=== PATIENT | female | born 1975 | race Caucasian/White ===

== ENCOUNTER → 2016-06-14 | Outpatient (CLI) | payer BC ==
--- NOTE | 2016-06-14 10:02 | RAD ---
EXAM: Abdomen sonogram. HISTORY: Pain. TECHNIQUE: Sonographic imaging of the abdomen was performed. COMPARISON: None. FINDINGS: The liver is normal in size. No focal hepatic lesion is seen. There is cholelithiasis, including nonmobile stones within the gallbladder neck. There is no color wall thickening or pericholecystic fluid. The kidneys, pancreas, aorta and inferior vena cava are unremarkable. The spleen is upper normal in size. IMPRESSION: 1. Cholelithiasis, including nonmobile stones within the gallbladder neck. 2. Otherwise, unremarkable abdomen sonogram.
== END | disposition home or self-care (01) ==
LOC: US 08:45
PROVIDERS: ATTEND Internal Medicine
DX: K80.20 Calculus of gallbladder without cholecystitis without obstruction (principal); R11.10 Vomiting, unspecified; R10.9 Unspecified abdominal pain; R19.01 Right upper quadrant abdominal swelling, mass and lump
CPT/HCPCS: 76700

== ENCOUNTER 2017-07-14 09:03 | Emergency (ER) | payer OTHER ==
[~2017-07-14] VITALS: Ht 157.5 cm; Wt 108.9 kg
[2017-07-14] MEDS ORDERED: IPRATRPIUM/ALBUTEROL 0.5/2.5MG 3 ML NEBU. NEB ONE (10:15)
[2017-07-14] MEDS ORDERED: IV NORMAL SALINE 1,000ML 1,000 ML IV ONE (10:15)
--- NOTE | 2017-07-14 10:19 | RAD ---
CHEST PA LATERAL History: COUGH Comparison: Two-view chest May 12, 2007. Findings: The cardiomediastinal silhouette is normal. Pulmonary vasculature is normal. The lungs are clear. No pleural effusion or pneumothorax is seen. There is no acute bone abnormality. IMPRESSION: No acute cardiopulmonary process. Electronically signed by: Emiliano Deluca MD (07/14/2017 10:16 AM) [id number]
[2017-07-14 10:29] LABS: BASO % 1 % (0-3); EOS # 0.1 x10^3/uL (0.0-0.7); EOS % 2 % (0-3); HEMATOCRIT 39.9 % (36.0-47.0); HEMOGLOBIN 13.3 g/dL (12.0-15.5); LYMPH # 0.5 x10^3/uL (1.0-4.8); LYMPH % 7 % (24-48); MEAN CORPUSCULAR HEMOGLOBIN 26 pg (25-35); MEAN CORPUSCULAR HGB CONC 33 g/dL (31-37); MEAN CORPUSCULAR VOLUME 79 fL (79-100); MONO # 0.4 x10^3/uL (0.0-1.1); MONO % 5 % (0-9); NEUT % 86 % (31-73); PLATELET COUNT 203 x10^3/uL (140-400); RED BLOOD COUNT 5.07 x10^6/uL (3.50-5.40); RED CELL DISTRIBUTION WIDTH 15.3 % (11.5-14.5)
[2017-07-14 10:37] LABS: CALCIUM 8.8 mg/dL (8.5-10.1); GFR 61.4
[2017-07-14] MEDS ORDERED: ONDANSETRON ODT 4 MG TAB.RAPDIS ONE (11:01)
[2017-07-14] MEDS ORDERED: ONDANSETRON ODT 4 MG TAB.RAPDIS PO ONE (11:15)
[2017-07-14] MEDS ORDERED: KETOROLAC 30 MG/ML VIAL. IV ONE (11:30)
[2017-07-14] MEDS ORDERED: FLUT12AE IH (12:05)
[2017-07-14] MEDS ORDERED: FLUT9.9S NS (12:05)
[2017-07-14] MEDS ORDERED: ALBU8.5H8 INH (12:05)
--- NOTE | 2017-07-14 12:08 | PHYS DOC ---
Past History Past Medical History: Anemia, Hypothyroid Past Surgical History: Other Alcohol Use: None Drug Use: None Adult General Chief Complaint Chief Complaint: COUGH HPI HPI Patient is a 41 year old F who presents with cough and congestion over the past 3-4 days. She also describes nausea and vomiting that started this morning. Her vomiting seems to be associated with cough. She states that she occasionally has mild difficulty breathing particularly with cough. She also describes moderate nasal congestion associated with moderate postnasal drip and drainage. Review of Systems Review of Systems Constitutional: Chills Eyes: Denies change in visual acuity, redness, or eye pain [] HENT: Negative except history of present illness Respiratory: Denies cough or shortness of breath [] Cardiovascular: No additional information not addressed in HPI [] GI: Denies abdominal pain, bloody stools or diarrhea [] : Denies dysuria or hematuria [] Musculoskeletal: Denies back pain or joint pain [] Integument: Denies rash or skin lesions [] Neurologic: Denies headache, focal weakness or sensory changes [] Endocrine: Denies polyuria or polydipsia [] All other systems were reviewed and found to be within normal limits, except as documented in this note. Family History Family History No pertinent family medical history was reported Current Medications Current Medications Current Medications Medications (Trade) Dose Ordered Sig/Flip Start Time Stop Time Status Last Admin Dose Admin Albuterol/ Ipratropium (Duoneb) 3 ml 1X ONCE 07/14/17 10:15 07/14/17 10:16 DC 07/14/17 10:45 3 ML Ketorolac Tromethamine (Toradol) 30 mg 1X ONCE 07/14/17 11:30 07/14/17 11:31 DC 07/14/17 11:12 30 MG Ondansetron HCl (Zofran Odt) 4 mg 1X ONCE 07/14/17 11:15 07/14/17 11:19 DC 07/14/17 11:14 4 MG Sodium Chloride 1,000 ml @ 1,000 mls/hr 1X ONCE 07/14/17 10:15 07/14/17 11:14 DC 07/14/17 10:24 1,000 MLS/HR Allergies Allergies Allergies Coded Allergies Type Severity Reaction Last Updated Verified No Known Drug Allergies 07/14/17 No Physical Exam Physical Exam Constitutional: Well developed, well nourished, no acute distress, non-toxic appearance. [] HENT: Normocephalic, atraumatic, mild to moderate bilateral nasal mucosa erythema and edema with moderate drainage noted Eyes: EOMI, conjunctiva normal, no discharge. [] Neck: Normal range of motion, no tenderness, supple, no stridor. [] Cardiovascular:Heart rate regular rhythm, no murmur [] Lungs & Thorax: Bilateral breath sounds clear to auscultation [] minimal wheezing bilaterally Abdomen: Bowel sounds normal, soft, no tenderness, no masses, no pulsatile masses. [] Skin: Warm, dry, no erythema, no rash. [] Back: No tenderness, no CVA tenderness. [] Extremities: No tenderness, no cyanosis, no clubbing, ROM intact, no edema. [] Neurologic: Alert and oriented X 3, normal motor function, normal sensory function, no focal deficits noted. [] Psychologic: Affect normal, judgement normal, mood normal. [] Current Patient Data Vital Signs Vital Signs Date Time Temp Pulse Resp B/P (MAP) Pulse Ox O2 Delivery O2 Flow Rate FiO2 07/14/17 11:45 101.2 104 18 117/72 (87) 98 Room Air Lab Results Laboratory Tests Test 07/14/17 10:15 White Blood Count 7.0 x10^3/uL (4.0-11.0) Red Blood Count 5.07 x10^6/uL (3.50-5.40) Hemoglobin 13.3 g/dL (12.0-15.5) Hematocrit 39.9 % (36.0-47.0) Mean Corpuscular Volume 79 fL (79-100) Mean Corpuscular Hemoglobin 26 pg (25-35) Mean Corpuscular Hemoglobin Concent 33 g/dL (31-37) Red Cell Distribution Width 15.3 % (11.5-14.5) H Platelet Count 203 x10^3/uL (140-400) Neutrophils (%) (Auto) 86 % (31-73) H Lymphocytes (%) (Auto) 7 % (24-48) L Monocytes (%) (Auto) 5 % (0-9) Eosinophils (%) (Auto) 2 % (0-3) Basophils (%) (Auto) 1 % (0-3) Neutrophils # (Auto) 6.0 x10^3uL (1.8-7.7) Lymphocytes # (Auto) 0.5 x10^3/uL (1.0-4.8) L Monocytes # (Auto) 0.4 x10^3/uL (0.0-1.1) Eosinophils # (Auto) 0.1 x10^3/uL (0.0-0.7) Basophils # (Auto) 0.0 x10^3/uL (0.0-0.2) Sodium Level 134 mmol/L (136-145) L Potassium Level 4.0 mmol/L (3.5-5.1) Chloride Level 103 mmol/L (98-107) Carbon Dioxide Level 25 mmol/L (21-32) Anion Gap 6 (6-14) Blood Urea Nitrogen 11 mg/dL (7-20) Creatinine 1.0 mg/dL (0.6-1.0) Estimated GFR (Cockcroft-Gault) 61.4 Glucose Level 112 mg/dL (70-99) H Calcium Level 8.8 mg/dL (8.5-10.1) EKG EKG [] Radiology/Procedures Radiology/Procedures Chest xray Impressions: No acute cardio-pulmonary process Course & Med Decision Making Course & Med Decision Making Pertinent Labs and Imaging studies reviewed. (See chart for details) [] Dragon Disclaimer Dragon Disclaimer This electronic medical record was generated, in whole or in part, using a voice recognition dictation system. Departure Departure: Impression: Primary Impression: Viral upper respiratory infection Additional Impression: Bronchitis Disposition: 01 HOME, SELF-CARE Condition: STABLE Referrals: NAME,JOSEPH MICHEL (PCP) Patient Instructions: Acute Bronchitis, Upper Respiratory Infection, Adult Additional Instructions: Tanya was seen in the emergency department for cough, congestion and nausea. No emergency medical condition was found on history or physical exam. She did have normal labs and imaging. Her symptoms are most consistent with a viral upper respiratory infection, bronchitis and associated gastritis (or stomach irritation). She was encouraged use nasal saline rinses regularly. She was given a prescription for nose spray and inhalers. She was encouraged to return to the emergency room if she develops new or worsening symptoms. She was also encouraged follow-up with her primary care doctor in the next 3-5 days for further management. Scripts Fluticasone Propionate (FLOVENT 110MCG HFA) 12 Gm Aer.w.adap 2 PUFF IH BID for 7 Days, #1 INHALER 0 Refills Prov: YSABEL LOMELI MD 07/14/17 Fluticasone Propionate (Flonase Allergy Relief) 9.9 Ml Green.susp 1 SPRAYS NS BID for 7 Days, BOTTLE Prov: YSABEL LOMELI MD 07/14/17 Albuterol Sulfate (PROAIR HFA INHALER) 8.5 Gm Hfa.aer.ad 1 PUFF INH PRN Q6HRS Y for SHORTNESS OF BREATH for 7 Days, INHALER 0 Refills Prov: YSABEL LOMELI MD 07/14/17 Problem Qualifiers YSABEL LOMELI MD Jul 14, 2017 12:08
[2017-07-14 13:35] VITALS: BP 126/82
[2017-07-19] MEDS ORDERED: IPRA3AMP NEB (10:31)
[2017-07-19] MEDS ORDERED: PRED-220 PO (10:31)
[2017-07-19] MEDS ORDERED: LEVO500T59 PO (10:31)
== END 2017-07-14 13:35 | disposition home or self-care (01) ==
LOC: ER 09:03
DX: J06.9 Acute upper respiratory infection, unspecified (principal); J40 Bronchitis, not specified as acute or chronic; B97.89 Other viral agents as the cause of diseases classified elsewhere; E03.9 Hypothyroidism, unspecified; Z86.2 Personal history of diseases of the blood and blood-forming organs and certain disorders involving the immune mechanism
CPT/HCPCS: 36415; 71046; 80048; 85025; 94640; 96361; 96374; 99285; J1885; J7620; Q0162; J7030

== ENCOUNTER 2017-07-16 16:42 | Inpatient (IN) | payer OTHER ==
[~2017-07-16] VITALS: Ht 160 cm; Wt 108.6 kg
[~2017-07-16 16:42] MED LIST: ALBU8.5H8 INH; FLUT12AE IH; FLUT9.9S NS
[2017-07-16 17:54] VITALS: BP 127/71
[2017-07-16] MEDS: IPRATRPIUM/ALBUTEROL 0.5/2.5MG 3 ML NEBU. NEB SCH ×2 (18:11→20:57)
[2017-07-16 18:12] LABS: BASO % 1 % (0-3); EOS # 0.1 x10^3/uL (0.0-0.7); EOS % 2 % (0-3); HEMATOCRIT 36.3 % (36.0-47.0); HEMOGLOBIN 12.4 g/dL (12.0-15.5); LYMPH # 0.7 x10^3/uL (1.0-4.8); LYMPH % 18 % (24-48); MEAN CORPUSCULAR HEMOGLOBIN 27 pg (25-35); MEAN CORPUSCULAR HGB CONC 34 g/dL (31-37); MEAN CORPUSCULAR VOLUME 78 fL (79-100); MONO # 0.3 x10^3/uL (0.0-1.1); MONO % 8 % (0-9); NEUT # 2.9 x10^3uL (1.8-7.7); NEUT % 71 % (31-73); PLATELET COUNT 204 x10^3/uL (140-400); RED BLOOD COUNT 4.64 x10^6/uL (3.50-5.40); RED CELL DISTRIBUTION WIDTH 15.3 % (11.5-14.5); WHITE BLOOD COUNT 4.1 x10^3/uL (4.0-11.0)
[2017-07-16] MEDS ORDERED: PROM118S2 PO (18:13)
[2017-07-16] MEDS ORDERED: ONDA4TAB10 PO (18:13)
[2017-07-16] MEDS ORDERED: AZIT250T6 PO ×2 (18:13)
[2017-07-16] MEDS ORDERED: LEVO125T5 PO (18:13)
[2017-07-16 18:18] LABS: CALCIUM 8.7 mg/dL (8.5-10.1); CREATININE 0.9 mg/dL (0.6-1.0); GFR 69.3; POTASSIUM 3.7 mmol/L (3.5-5.1)
[2017-07-16] MEDS: methylPREDNISolone SOD SUCC PF 40 MG/ML VIAL. IV SCH ×2 (18:22→23:15)
[2017-07-16 19:23] VITALS: BP 120/62
[2017-07-16] MEDS ORDERED: traMADol 50 MG TABLET PO PRN ×2 (19:30→19:45)
[2017-07-16] MEDS ORDERED: ACETAMINOPHEN 325 MG TABLET PO PRN (19:30)
[2017-07-16] MEDS ORDERED: ONDANSETRON ODT 4 MG TAB.RAPDIS PO PRN (19:30)
[2017-07-16] MEDS ORDERED: ALBUTEROL SULFATE 2.5 MG/3 ML NEBU. NEB PRN (19:45)
[2017-07-16] MEDS: cefTRIAXone IV Push 1 GM VIAL. IVP SCH (20:02)
[2017-07-16] MEDS: DOXYCYCLINE HYCLATE 100 MG TABLET PO SCH (20:02)
[2017-07-16] MEDS: PROMETH/CODEINE 6.25/10MG 5 ML SYRUP. PO PRN (20:02)
[2017-07-16] MEDS: BENZONATATE 100 MG CAPSULE. PO SCH (20:03)
[2017-07-16] MEDS: FLUTICASONE 50MCG/NASAL SPRAY 16GM BOTTLE. NS SCH (20:03)
[2017-07-16 22:57] VITALS: BP 125/55
[2017-07-16] MEDS: guaiFENesin DM 200MG/20MG 10 ML SYRUP PO PRN (23:16)
[2017-07-17] MEDS: IPRATRPIUM/ALBUTEROL 0.5/2.5MG 3 ML NEBU. NEB SCH ×4 (05:17→20:45)
[2017-07-17 05:40] VITALS: BP 104/61
[2017-07-17] MEDS: methylPREDNISolone SOD SUCC PF 40 MG/ML VIAL. IV SCH ×3 (05:46→22:32)
[2017-07-17] MEDS: LEVOTHYROXINE 125 MCG TABLET PO SCH (06:22)
[2017-07-17] MEDS: guaiFENesin DM 200MG/20MG 10 ML SYRUP PO PRN (06:25)
[2017-07-17] MEDS: BENZONATATE 100 MG CAPSULE. PO SCH ×3 (08:05→20:48)
[2017-07-17] MEDS: DOXYCYCLINE HYCLATE 100 MG TABLET PO SCH ×2 (08:05→20:48)
[2017-07-17] MEDS: FLUTICASONE 50MCG/NASAL SPRAY 16GM BOTTLE. NS SCH ×2 (08:16→22:48)
--- NOTE | 2017-07-17 11:11 | HP ---
ADMIT DATE: 07/16/2017 HISTORY OF PRESENT ILLNESS: The patient is a 41-year-old female who came in with increased shortness of breath. She has been ill for the past week, running temperatures, has been to 2 Emergency Rooms, given breathing treatments; however, she got progressively worse with increased shortness of breath, mild dyspnea on minimal exertion. The patient is moving 10 steps or more. She had difficulty talking and she had to use at times accessory muscles to breathe. She also had coughing spasms that inhibit her ability to get a good breath. In any case, the patient was admitted for acute exacerbation of her asthma, acute respiratory distress. PAST MEDICAL HISTORY: Asthma, cholecystectomy in 05/2017, abdominal surgery, appendectomy, x 2, hypothyroidism and anemia. FAMILY HISTORY: Mother with myocardial infarction, hypertension, asthma, and coronary artery disease. ALLERGIES: No known drug allergies. The patient is otherwise basically stable there. HOME MEDICATIONS: Include albuterol inhaler, fluticasone propionate, Phenergan with Codeine cough syrup, albuterol inhalers and Z-VERITO. SOCIAL HISTORY: The patient denies smoking, alcohol or drug use. REVIEW OF SYSTEMS: Positive for cough, bronchospasm, asthma type, increased shortness of breath. She also has significant nausea, unable to keep medications down, had to give her doses of Zofran to get her under control there as well. PHYSICAL EXAMINATION: GENERAL: This is an ill-appearing white female, difficulty talking. VITAL SIGNS: Blood pressure 127/70, respiratory 20, pulse 113, temperature 101.0. The patient's oxygen saturation was increased, . HEENT: The patient's head was atraumatic, normocephalic. Eyes: PERRLA without jaundice. Mouth and throat were normal. NECK: Supple. LUNGS: Diminished throughout, poor movement of air, some expiratory and inspiratory wheezes noted. CARDIOVASCULAR: Regular sinus rhythm, S1, S2, without murmur, rub, thrill, or extra heart sound. ABDOMEN: Soft, protuberant, nontender. No rebounding or guarding. Mild tenderness in the right upper quadrant where she has had her surgery. EXTREMITIES: No clubbing, cyanosis, nor edema. NEUROLOGIC: The patient was alert and oriented x 3, in some distress. IMPRESSION: Acute respiratory distress, acute exacerbation of asthma, SIRS, acute bronchitis, elevated D-dimer, nausea, dehydration. PLAN: IV fluids, IV antibiotics, aggressive pulmonary toilet and some Solu-Medrol, aggressive pulmonary toilet, monitor carefully. YSABEL POWERS MD DR: THAO/karin JOB#: [id number] / [id number]
[2017-07-17] MEDS ORDERED: IOHEXOL 300 MG/ML 75 ML VIAL. IV ONE (11:15)
[2017-07-17 11:18] VITALS: BP 124/76
--- NOTE | 2017-07-17 14:26 | RAD ---
CTA chest with contrast 07/17/2017 CLINICAL INDICATION: Upper respiratory infection, shortness of breath. Elevated d-dimer. COMPARISON: Two-view chest 07/14/2017 Technique: Multiple CTA images of the chest were obtained following the intravenous administration of 75 mL Omnipaque 300. MIPS were obtained of the chest. *One or more of the following individualized dose reduction techniques were utilized for this examination: 1. Automated exposure control. 2. Adjustment of the mA and/or kV according to patient size. 3. Use of iterative reconstruction technique. FINDINGS: Examination of the subsegmental pulmonary arteries is limited due to respiratory motion. No main or central major segmental pulmonary arterial filling defect Heart size is normal without significant pericardial effusion. The thoracic aorta is normal caliber. No axillary, mediastinal or hilar lymphadenopathy. There are mildly prominent left hilar lymph nodes, largest measuring 0.9 cm short axis series 3/image 41. The central airways are patent. There are left lower lobe tree-in-bud, groundglass and nodular opacities. There is a tiny groundglass opacity in the central left upper lobe. No pleural effusion or pneumothorax. There are no destructive osseous lesions. Limited images of the upper abdomen: Subcentimeter left hepatic cysts. IMPRESSION: 1. Left lower lobe bronchopneumonia. 2. Mildly prominent left hilar lymph nodes, likely reactive. 3. Suboptimal evaluation of the subsegmental pulmonary arteries due to respiratory motion. No main or central major segmental pulmonary arterial filling defect to suggest pulmonary embolism. Electronically signed by: Stanton Calero MD (07/17/2017 2:22 PM) [id number]
[2017-07-17] MEDS: PROMETH/CODEINE 6.25/10MG 5 ML SYRUP. PO PRN ×2 (14:29→22:33)
[2017-07-17 15:03] LABS: BILIRUBIN,URINE NEG (NEG); CLARITY,URINE CLEAR; COLOR,URINE YELLOW; GLUCOSE,URINE NEG (NEG); NITRITE,URINE NEG (NEG); RBC,URINE 20-40 /HPF (0-2); UROBILINOGEN,URINE 0.2 mg/dL (0.2 mg/dL)
[2017-07-17 15:04] LABS: BACTERIA,URINE 0 /HPF (0-FEW); SQUAMOUS EPITHELIAL CELL,UR MOD /LPF; WBC,URINE OCC /HPF (0-4)
[2017-07-17 15:59] VITALS: BP 110/64
[2017-07-17 19:19] VITALS: BP 119/71
[2017-07-17] MEDS: BENZOCAINE/MENTHOL LOZNGE 18'S BOX. PO PRN ×2 (20:24→23:43)
[2017-07-17] MEDS: cefTRIAXone IV Push 1 GM VIAL. IVP SCH (20:27)
[2017-07-17] MEDS: LACTOBACILLUS RHAMNOSUS GG 1 CAPSULE. PO SCH (20:48)
[2017-07-17 22:30] VITALS: BP 120/73
[2017-07-18] MEDS: IPRATRPIUM/ALBUTEROL 0.5/2.5MG 3 ML NEBU. NEB SCH ×4 (04:30→22:06)
[2017-07-18] MEDS: PROMETH/CODEINE 6.25/10MG 5 ML SYRUP. PO PRN ×2 (04:46→07:52)
[2017-07-18] MEDS: methylPREDNISolone SOD SUCC PF 40 MG/ML VIAL. IV SCH ×3 (05:56→22:06)
[2017-07-18 06:12] VITALS: BP 112/54
[2017-07-18] MEDS: BENZONATATE 100 MG CAPSULE. PO SCH ×3 (07:52→19:58)
[2017-07-18] MEDS: DOXYCYCLINE HYCLATE 100 MG TABLET PO SCH ×2 (07:53→19:58)
[2017-07-18] MEDS: FLUTICASONE 50MCG/NASAL SPRAY 16GM BOTTLE. NS SCH ×2 (07:53→19:55)
[2017-07-18] MEDS: LEVOTHYROXINE 125 MCG TABLET PO SCH (07:53)
[2017-07-18] MEDS: LACTOBACILLUS RHAMNOSUS GG 1 CAPSULE. PO SCH ×2 (07:53→19:58)
[2017-07-18] MEDS: guaiFENesin DM 200MG/20MG 10 ML SYRUP PO PRN ×2 (08:08→19:56)
[2017-07-18 09:56] LABS: ALBUMIN 3.4 g/dL (3.4-5.0); ALBUMIN/GLOBULIN RATIO 0.8 (1.0-1.7); CALCIUM 8.9 mg/dL (8.5-10.1); CREATININE 0.9 mg/dL (0.6-1.0); GFR 69.3; POTASSIUM 4.3 mmol/L (3.5-5.1); TOTAL BILIRUBIN 0.5 mg/dL (0.2-1.0); TOTAL PROTEIN 7.7 g/dL (6.4-8.2)
[2017-07-18 10:00] LABS: BASO % 0 % (0-3); EOS % 0 % (0-3); HEMOGLOBIN 12.9 g/dL (12.0-15.5); LYMPH % 11 % (24-48); MEAN CORPUSCULAR HEMOGLOBIN 26 pg (25-35); MEAN CORPUSCULAR HGB CONC 33 g/dL (31-37); MEAN CORPUSCULAR VOLUME 79 fL (79-100); MONO # 0.4 x10^3/uL (0.0-1.1); MONO % 4 % (0-9); NEUT # 7.4 x10^3uL (1.8-7.7); NEUT % 84 % (31-73); PLATELET COUNT 274 x10^3/uL (140-400); RED BLOOD COUNT 4.93 x10^6/uL (3.50-5.40); RED CELL DISTRIBUTION WIDTH 15.4 % (11.5-14.5); WHITE BLOOD COUNT 8.8 x10^3/uL (4.0-11.0)
[2017-07-18 11:35] VITALS: BP 121/72
[2017-07-18 15:00] LABS: FREE T4 0.87 ng/dL (0.76-1.46); THYROID STIM HORMONE (TSH) 2.397 uIU/mL (0.358-3.740)
[2017-07-18 15:17] VITALS: BP 113/71
[2017-07-18 19:31] VITALS: BP 121/75
[2017-07-18] MEDS: BENZOCAINE/MENTHOL LOZNGE 18'S BOX. PO PRN (19:55)
[2017-07-18] MEDS: cefTRIAXone IV Push 1 GM VIAL. IVP SCH (20:41)
[2017-07-18 22:05] VITALS: BP 134/91
--- NOTE | 2017-07-19 05:22 | PN ---
DATE: 07/18/2017 SUBJECTIVE: The patient is a 41-year-old female who is in with a bronchial pneumonia. She is resting fairly comfortably, breathing a little bit better, but still fairly ill appearing, clinically. OBJECTIVE: VITAL SIGNS: Blood pressure 120/70, respiration 18, pulse 95, afebrile. GENERAL: The patient is alert and oriented. LUNGS: Diminished, primarily in the right upper lobe. CARDIOVASCULAR: Regular sinus rhythm, S1, S2. ABDOMEN: Soft, nontender. EXTREMITIES: No clubbing, cyanosis or edema. NEUROLOGIC: Intact. IMPRESSION: Peribronchial pneumonia. PLAN: Continue on IV antibiotic therapy. YSABEL POWERS MD DR: THAO/karin JOB#: [id number] / [id number]
[2017-07-19] MEDS: IPRATRPIUM/ALBUTEROL 0.5/2.5MG 3 ML NEBU. NEB SCH ×2 (05:33→10:35)
[2017-07-19 05:44] VITALS: BP 125/79
[2017-07-19] MEDS ORDERED: LEVOTHYROXINE 125 MCG TABLET PO SCH (06:00)
[2017-07-19] MEDS: methylPREDNISolone SOD SUCC PF 40 MG/ML VIAL. IV SCH (06:49)
[2017-07-19] MEDS: DOXYCYCLINE HYCLATE 100 MG TABLET PO SCH (08:58)
[2017-07-19] MEDS: guaiFENesin DM 200MG/20MG 10 ML SYRUP PO PRN (08:58)
[2017-07-19] MEDS: LACTOBACILLUS RHAMNOSUS GG 1 CAPSULE. PO SCH (08:58)
[2017-07-19] MEDS: FLUTICASONE 50MCG/NASAL SPRAY 16GM BOTTLE. NS SCH (08:58)
[2017-07-19] MEDS: BENZOCAINE/MENTHOL LOZNGE 18'S BOX. PO PRN (08:58)
[2017-07-19] MEDS: BENZONATATE 100 MG CAPSULE. PO SCH (08:58)
[2017-07-19] MEDS ORDERED: IPRA3AMP NEB (10:31)
[2017-07-19] MEDS ORDERED: PRED-220 PO (10:31)
[2017-07-19] MEDS ORDERED: LEVO500T59 PO (10:31)
[2017-07-19 10:43] VITALS: BP 103/67
--- NOTE | 2017-07-19 11:00 | DS ---
DATE OF DISCHARGE: 07/19/2017 HOSPITAL COURSE: The patient is a 41-year-old female who has been seen in outpatient Emergency Rooms, got increasingly worse, became increasingly fatigued and shortness of breath. As a result of this, her shortness of breath increased, could not move 10 steps. She was admitted to the hospital. CTA demonstrated a left lower lobe bronchial pneumonia and exacerbation of her breathing problems. The patient was placed on IV antibiotic therapy, aggressive pulmonary toilet, made good progress overall and she was then discharged. The patient technically would be put in the realm of sepsis. She did have an elevated pulse rate, elevated temperature and her overall breathing was very labored at times. In any case, the patient made good progress, discharged home. See EMRAD. IMPRESSION: Bronchial pneumonia, left lower lobe, organism unknown; acute respiratory distress, morbid obesity, hypothyroidism, hematuria. The patient will be discharged home, followed up as an outpatient in 7-10 days or sooner as needed. Instructions given. The patient also uses a nebulizer at home for now. YSABEL POWERS MD DR: THAO/karin JOB#: [id number] / [id number]
== END 2017-07-19 11:15 | disposition home or self-care (01) | DRG 194 ==
LOC: 1 SOUTH 17:17
PROVIDERS: ADMIT Family Medicine; ATTEND Family Medicine
DX: J18.0 Bronchopneumonia, unspecified organism (principal); R65.10 Systemic inflammatory response syndrome (SIRS) of non-infectious origin without acute organ dysfunction; E66.01 Morbid (severe) obesity due to excess calories; J45.901 Unspecified asthma with (acute) exacerbation; Z68.41 Body mass index [BMI] 40.0-44.9, adult; J20.9 Acute bronchitis, unspecified; E03.9 Hypothyroidism, unspecified; E86.0 Dehydration; R79.1 Abnormal coagulation profile; Z82.49 Family history of ischemic heart disease and other diseases of the circulatory system; Z82.5 Family history of asthma and other chronic lower respiratory diseases; Z90.49 Acquired absence of other specified parts of digestive tract
CPT/HCPCS: 36415; 71275; 80048; 80053; 81001; 84439; 84443; 84481; 85025; 85379; 87040; 94640; J0696; J1956; J2920; J7613; J7620; Q9967

== ENCOUNTER 2017-09-09 21:08 | Emergency (ER) | payer OTHER ==
[~2017-09-09] VITALS: Ht 157.5 cm; Wt 110.7 kg
[~2017-09-09 21:08] MED LIST changes: +AZIT250T6 PO; +IPRA3AMP NEB; +LEVO125T5 PO; +LEVO500T59 PO; +ONDA4TAB10 PO; +PRED-220 PO; +PROM118S2 PO
[2017-09-09] MEDS ORDERED: ALBUTEROL SULFATE 8GM INHALER. ONE (21:26)
[2017-09-09] MEDS ORDERED: predniSONE 10 MG TABLET ONE (21:26)
--- NOTE | 2017-09-09 21:41 | ED.ADGEN ---
Past History Past Medical History: Anemia, Hypothyroid Past Surgical History: Other Alcohol Use: None Drug Use: None Adult General Chief Complaint Chief Complaint ".. I am having an allergic reaction....".. I think it was the Pencillin... I stopped taking a couple days.. ago.. but I still got the rash..I was taking it for my bad teeth..." HPI HPI Patient is a 41 year old female who presents with extensive dental caries and planned dental surgery. Pt. has been taking pencillin for possible denat abscess of teeth 27, 26, 25. area. Pt. has hive like rash after starting the penicillin. Pt. denies any changes in foods hygiene products or soaps. Only new change in life has been starting amoxicillin. No recent travel. No specific ill contacts. Patient normally follows Dr. 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 Review of Systems Review of Systems Constitutional: Denies fever or chills [] Eyes: Denies change in visual acuity, redness, or eye pain [] HENT: Denies nasal congestion or sore throat []Dental pain Respiratory: Denies cough or shortness of breath [] Cardiovascular: No additional information not addressed in HPI [] GI: Denies abdominal pain, nausea, vomiting, bloody stools or diarrhea [] : Denies dysuria or hematuria [] Musculoskeletal: Denies back pain or joint pain [] Integument: Complaints of hives. ] Neurologic: Denies headache, focal weakness or sensory changes [] Endocrine: Denies polyuria or polydipsia [] All other systems were reviewed and found to be within normal limits, except as documented in this note. Family History Family History Non-contributory Current Medications Current Medications Current Medications Medications (Trade) Dose Ordered Sig/Flip Start Time Stop Time Status Last Admin Dose Admin Albuterol Sulfate (Ventolin Hfa) 60 puff STK-MED ONCE 09/09/17 21:26 09/09/17 21:27 DC Diphenhydramine HCl (Benadryl) 50 mg 1X ONCE 09/09/17 22:00 09/09/17 22:01 DC 09/09/17 22:29 50 MG Famotidine (Pepcid) 20 mg 1X ONCE 09/09/17 22:00 09/09/17 22:01 DC 6/23/18 21:31 20 MG Prednisone (Prednisone) 10 mg STK-MED ONCE 09/09/17 21:26 09/09/17 21:27 DC Allergies Allergies Allergies Coded Allergies Type Severity Reaction Last Updated Verified No Known Drug Allergies 07/14/17 No Physical Exam Physical Exam Constitutional: Moderate acute distress, non-toxic appearance. [] HENT: Normocephalic, atraumatic, bilateral external ears normal, oropharynx moist, no oral exudates, nose normal. [Multiple dental caries Eyes: PERRLA, EOMI, conjunctiva normal, no discharge. [] Neck: Normal range of motion, no tenderness, supple, no stridor. [] Cardiovascular:Heart rate regular rhythm, no murmur [] Lungs & Thorax: Bilateral breath sounds clear to auscultation [] Abdomen: Bowel sounds normal, soft, no tenderness, no masses, no pulsatile masses. [] Obese. Skin: Warm, dry, Hives Back: No tenderness, no CVA tenderness. [] Extremities: No tenderness, no cyanosis, no clubbing, ROM intact, no edema. [] Neurologic: Alert and oriented X 3, normal motor function, normal sensory function, no focal deficits noted. [] Psychologic: Affect anxious, judgement normal, mood normal. [] Current Patient Data Vital Signs Vital Signs Date Time Temp Pulse Resp B/P (MAP) Pulse Ox O2 Delivery O2 Flow Rate FiO2 09/09/17 22:30 97.7 80 20 128/88 (101) 97 Room Air EKG EKG [] Radiology/Procedures Radiology/Procedures [] Course & Med Decision Making Course & Med Decision Making Pertinent Labs and Imaging studies reviewed. (See chart for details) Take Prednisone 50 mg a day x 5 days. Take Benadryl 50 mg up to 4 x day for itching. Zantac 150 twice a day. Use MDI two puffs four times aday. Keep follow up with primary and the dentist. Return if any concerns. Expect some delay for improvement- delay drug reaction. Take Clindamycin 300 three times a day for antibiotic predental surgery. [] Final Impression Final Impression 1. Allergic Reaction- Delayed drug reaction 2. Hives[] Dragon Disclaimer Dragon Disclaimer This electronic medical record was generated, in whole or in part, using a voice recognition dictation system. TOI THOMAS MD Sep 09, 2017 21:41
[2017-09-09] MEDS ORDERED: [UNRECOGNIZED DRUG - REMARK] (21:50)
[2017-09-09] MEDS ORDERED: PENI500T PO (21:51)
[2017-09-09] MEDS ORDERED: predniSONE 20 MG TABLET PO ONE (22:00)
[2017-09-09] MEDS ORDERED: ALBUTEROL SULFATE 8GM INHALER. INH ONE (22:00)
[2017-09-09] MEDS ORDERED: FAMOTIDINE 20 MG TABLET PO ONE (22:00)
[2017-09-09] MEDS ORDERED: diphenhydrAMINE HCL 25 MG CAPSULE PO ONE (22:00)
[2017-09-09] MEDS ORDERED: CLIN300C3 PO (22:11)
[2017-09-09] MEDS ORDERED: RANI150T21 PO (22:11)
[2017-09-09] MEDS ORDERED: PRED50TA PO (22:11)
[2017-09-09 22:30] VITALS: BP 128/88
== END 2017-09-09 22:35 | disposition home or self-care (01) ==
LOC: ER 21:08
DX: L50.9 Urticaria, unspecified (principal); T50.995A Adverse effect of other drugs, medicaments and biological substances, initial encounter; Z86.2 Personal history of diseases of the blood and blood-forming organs and certain disorders involving the immune mechanism; E03.9 Hypothyroidism, unspecified; Y92.89 Other specified places as the place of occurrence of the external cause
CPT/HCPCS: 94640; 99284; J7512; Q0163

== ENCOUNTER 2017-10-01 11:17 | Emergency (ER) | payer OTHER ==
[~2017-10-01] VITALS: Ht 154.9 cm; Wt 110.7 kg
[~2017-10-01 11:17] MED LIST changes: +CLIN300C3 PO; -IPRA3AMP NEB; +IPRA3AMP29 NEB; +PENI500T PO; +PRED50TA PO; -PROM118S2 PO; +PROM118S5 PO; +RANI150T21 PO; +[UNRECOGNIZED DRUG - REMARK]
[2017-10-01 11:55] LABS: BASO # 0.1 x10^3/uL (0.0-0.2); BASO % 1 % (0-3); EOS # 0.3 x10^3/uL (0.0-0.7); EOS % 4 % (0-3); HEMATOCRIT 39.6 % (36.0-47.0); HEMOGLOBIN 13.1 g/dL (12.0-15.5); LYMPH # 1.9 x10^3/uL (1.0-4.8); LYMPH % 26 % (24-48); MEAN CORPUSCULAR HEMOGLOBIN 26 pg (25-35); MEAN CORPUSCULAR HGB CONC 33 g/dL (31-37); MEAN CORPUSCULAR VOLUME 77 fL (79-100); MONO # 0.6 x10^3/uL (0.0-1.1); MONO % 8 % (0-9); NEUT # 4.3 x10^3uL (1.8-7.7); NEUT % 61 % (31-73); PLATELET COUNT 307 x10^3/uL (140-400); RED BLOOD COUNT 5.12 x10^6/uL (3.50-5.40); RED CELL DISTRIBUTION WIDTH 16.2 % (11.5-14.5); WHITE BLOOD COUNT 7.1 x10^3/uL (4.0-11.0)
[2017-10-01] MEDS ORDERED: IV NORMAL SALINE 1,000ML 1,000 ML IV SCH (12:00)
[2017-10-01] MEDS ORDERED: KETOROLAC 30 MG/ML VIAL. IV ONE (12:00)
[2017-10-01] MEDS ORDERED: ONDANSETRON PF 4 MG/2 ML VIAL. IV ONE (12:00)
[2017-10-01 12:05] LABS: ALBUMIN 3.8 g/dL (3.4-5.0); ALBUMIN/GLOBULIN RATIO 1.1 (1.0-1.7); CALCIUM 9.3 mg/dL (8.5-10.1); CREATININE 0.9 mg/dL (0.6-1.0); GFR 69.3; POTASSIUM 4.2 mmol/L (3.5-5.1); TOTAL BILIRUBIN 0.8 mg/dL (0.2-1.0); TOTAL PROTEIN 7.4 g/dL (6.4-8.2)
--- NOTE | 2017-10-01 12:46 | RAD ---
CT of the abdomen and pelvis without contrast, 10/01/2017: History: Left-sided abdominal, back and pelvic pain Noncontrast scans were obtained utilizing the renal stone protocol. No intrarenal calculi are identified. The renal collecting systems and ureters are not dilated. No ureteral calculus is seen. The partially filled urinary bladder is unremarkable. The gallbladder is surgically absent. A 1 cm low-density lesion in the anterior aspect of the left lobe of the liver is most likely a cyst. The liver is otherwise unremarkable. The pancreas is unremarkable. The spleen is at the upper limits of normal in size measuring 13 cm in craniocaudad extent. No adrenal abnormality is detected. No retroperitoneal or iliac adenopathy is evident. The uterus is deviated to the right of midline. The left ovary is mildly enlarged measuring approximately 4 x 3 x 5 cm. There is is a 1.4 cm exophytic cyst arising from the left ovary. The bowel loops are not dilated. The appendix is surgically absent. There are several small pericecal lymph nodes without definite pathologic enlargement. No free fluid or free air is evident in the abdomen or pelvis. IMPRESSION: 1. No urinary tract calculi are identified. 2. Mild nonspecific left ovary enlargement. PQRS Compliance Statement: One or more of the following individualized dose reduction techniques were utilized for this examination: 1. Automated exposure control 2. Adjustment of the mA and/or kV according to patient size 3. Use of iterative reconstruction technique
[2017-10-01 13:04] LABS: BACTERIA,URINE FEW /HPF (0-FEW); BILIRUBIN,URINE NEG (NEG); CLARITY,URINE CLEAR; COLOR,URINE YELLOW; GLUCOSE,URINE NEG (NEG); NITRITE,URINE NEG (NEG); RBC,URINE 0 /HPF (0-2); SQUAMOUS EPITHELIAL CELL,UR OCC /LPF; UROBILINOGEN,URINE 0.2 mg/dL (0.2 mg/dL)
[2017-10-01] MEDS ORDERED: Percogesic PO (13:30)
--- NOTE | 2017-10-01 13:30 | PHYS DOC ---
Past History Past Medical History: Anemia, Bronchitis, Gallstones, Hypothyroid, Other Past Surgical History: Appendectomy, Cholecystectomy, Tubal ligation Smoking: Non-smoker Alcohol Use: None Drug Use: None Adult General Chief Complaint Chief Complaint: ABDOMINAL PAIN [facility] 5-year-old female patient complaining of sudden onset of left lower quadrant abdominal pain since 7:30 this morning as a constant pain with radiation to her back that gradually getting worse. Patient rated her pain 10 over 10 and complaining of nausea without vomiting, fever and chills, urinary symptom, history of the same pain. Patient states she is taking antibiotic for tooth infection for the last 4 days and had intermittent episodes of diarrhea. Patient states she took and knee without improvement of her pain. Review of Systems Review of Systems Constitutional: Denies fever or chills [] Eyes: Denies change in visual acuity, redness, or eye pain [] HENT: Denies nasal congestion or sore throat [] Respiratory: Denies cough or shortness of breath [] Cardiovascular: No additional information not addressed in HPI [] GI: Reports abdominal pain, nausea, denies vomiting, bloody stools or diarrhea [ ] : Denies dysuria or hematuria [] Musculoskeletal: Denies back pain or joint pain [] Integument: Denies rash or skin lesions [] Neurologic: Denies headache, focal weakness or sensory changes [] Endocrine: Denies polyuria or polydipsia [] All other systems were reviewed and found to be within normal limits, except as documented in this note. Current Medications Current Medications Current Medications Medications (Trade) Dose Ordered Sig/Flip Start Time Stop Time Status Last Admin Dose Admin Ketorolac Tromethamine (Toradol) 30 mg 1X ONCE 10/01/17 12:00 10/01/17 12:01 DC 10/01/17 11:57 30 MG Ondansetron HCl (Zofran) 4 mg 1X ONCE 10/01/17 12:00 10/01/17 12:01 DC 10/01/17 11:56 4 MG Sodium Chloride 1,000 ml @ 1,000 mls/hr Q1H 10/01/17 12:00 10/01/17 12:59 10/01/17 11:56 1,000 MLS/HR Allergies Allergies Allergies Coded Allergies Type Severity Reaction Last Updated Verified No Known Drug Allergies 07/14/17 No Physical Exam Physical Exam Constitutional: Well nourished, mild distress, very anxious, non-toxic appearance. [] HENT: Normocephalic, atraumatic, oropharynx moist, no oral exudates, nose normal. [] Eyes: PERRLA, EOMI, conjunctiva normal, no discharge. [] Neck: Normal range of motion, no tenderness, supple, no stridor. [] Cardiovascular:Heart rate regular rhythm, no murmur [] Lungs & Thorax: Bilateral breath sounds clear to auscultation [] Abdomen: Bowel sounds normal, soft, left lower quadrant guarding, no tenderness , no masses, no pulsatile masses. [] Skin: Warm, dry, no erythema, no rash. [] Back: No tenderness, no CVA tenderness. [] Extremities: No tenderness, no cyanosis, no clubbing, ROM intact, no edema. [] Neurologic: Alert and oriented X 3, normal motor function, normal sensory function, no focal deficits noted. [] Psychologic: Affect anxious, judgement normal, mood normal. []patient is very anxious and looks mentally challenged. Current Patient Data Vital Signs Vital Signs Date Time Temp Pulse Resp B/P (MAP) Pulse Ox O2 Delivery O2 Flow Rate FiO2 10/01/17 11:17 99.2 62 20 97 Room Air Lab Results Laboratory Tests Test 10/01/17 11:40 White Blood Count 7.1 x10^3/uL (4.0-11.0) Red Blood Count 5.12 x10^6/uL (3.50-5.40) Hemoglobin 13.1 g/dL (12.0-15.5) Hematocrit 39.6 % (36.0-47.0) Mean Corpuscular Volume 77 fL (79-100) L Mean Corpuscular Hemoglobin 26 pg (25-35) Mean Corpuscular Hemoglobin Concent 33 g/dL (31-37) Red Cell Distribution Width 16.2 % (11.5-14.5) H Platelet Count 307 x10^3/uL (140-400) Neutrophils (%) (Auto) 61 % (31-73) Lymphocytes (%) (Auto) 26 % (24-48) Monocytes (%) (Auto) 8 % (0-9) Eosinophils (%) (Auto) 4 % (0-3) H Basophils (%) (Auto) 1 % (0-3) Neutrophils # (Auto) 4.3 x10^3uL (1.8-7.7) Lymphocytes # (Auto) 1.9 x10^3/uL (1.0-4.8) Monocytes # (Auto) 0.6 x10^3/uL (0.0-1.1) Eosinophils # (Auto) 0.3 x10^3/uL (0.0-0.7) Basophils # (Auto) 0.1 x10^3/uL (0.0-0.2) Sodium Level 138 mmol/L (136-145) Potassium Level 4.2 mmol/L (3.5-5.1) Chloride Level 105 mmol/L (98-107) Carbon Dioxide Level 27 mmol/L (21-32) Anion Gap 6 (6-14) Blood Urea Nitrogen 7 mg/dL (7-20) Creatinine 0.9 mg/dL (0.6-1.0) Estimated GFR (Cockcroft-Gault) 69.3 BUN/Creatinine Ratio 8 (6-20) Glucose Level 94 mg/dL (70-99) Calcium Level 9.3 mg/dL (8.5-10.1) Total Bilirubin 0.8 mg/dL (0.2-1.0) Aspartate Amino Transferase (AST) 23 U/L (15-37) Alanine Aminotransferase (ALT) 27 U/L (14-59) Alkaline Phosphatase 70 U/L (46-116) Total Protein 7.4 g/dL (6.4-8.2) Albumin 3.8 g/dL (3.4-5.0) Albumin/Globulin Ratio 1.1 (1.0-1.7) Lipase 137 U/L (73-393) EKG EKG [] Radiology/Procedures Radiology/Procedures [][address] [address] IMAGING REPORT Signed PATIENT: SERINA CRAFT ACCOUNT: [id number] : 1975 LOCATION: ER AGE: 41 SEX: F EXAM STATUS: PRE ER ORD. PHYSICIAN: GROVER DIAS MD REASON: Severe left sided abdomen and back pain, low pelvic pain. PROCEDURE: CT ABDOMEN PELVIS WO CONTRAST CT of the abdomen and pelvis without contrast, 10/01/2017: History: Left-sided abdominal, back and pelvic pain Noncontrast scans were obtained utilizing the renal stone protocol. No intrarenal calculi are identified. The renal collecting systems and ureters are not dilated. No ureteral calculus is seen. The partially filled urinary bladder is unremarkable. The gallbladder is surgically absent. A 1 cm low-density lesion in the anterior aspect of the left lobe of the liver is most likely a cyst. The liver is otherwise unremarkable. The pancreas is unremarkable. The spleen is at the upper limits of normal in size measuring 13 cm in craniocaudad extent. No adrenal abnormality is detected. No retroperitoneal or iliac adenopathy is evident. The uterus is deviated to the right of midline. The left ovary is mildly enlarged measuring approximately 4 x 3 x 5 cm. There is is a 1.4 cm exophytic cyst arising from the left ovary. The bowel loops are not dilated. The appendix is surgically absent. There are several small pericecal lymph nodes without definite pathologic enlargement. No free fluid or free air is evident in the abdomen or pelvis. IMPRESSION: 1. No urinary tract calculi are identified. 2. Mild nonspecific left ovary enlargement. PQRS Compliance Statement: One or more of the following individualized dose reduction techniques were utilized for this examination: 1. Automated exposure control 2. Adjustment of the mA and/or kV according to patient size 3. Use of iterative reconstruction technique Course & Med Decision Making Course & Med Decision Making Pertinent Labs and Imaging studies reviewed. (See chart for details) Evaluation of patient in ER showed 41-year-old female patient, remaining of the lower quadrant pain since this morning. Patient had anxiety with guarding of left lower quadrant. Labs and CT abdomen and pelvis was unremarkable. UA showed 1-4 WBC that looked contaminated. Patient informed that her symptoms are related to taking antibiotic and she needs to take probiotic and pain medication and follow up with her dentist. [] Dragon Disclaimer Dragon Disclaimer This electronic medical record was generated, in whole or in part, using a voice recognition dictation system. Departure Departure: Impression: Primary Impression: Left lower quadrant pain Additional Impressions: Medication side effects Morbid obesity Anxiety Disposition: HOME, SELF-CARE (at 1327) Condition: IMPROVED Referrals: YSABEL POWERS MD (PCP) Patient Instructions: Abdominal Pain, Drug Reaction, GI Intolerance Additional Instructions: Drink plenty of liquids Follow-up with your primary care physician in 3-5 days Return to ER if not getting better Scripts [Percogesic] No Conflict Check 1 TAB PO QID PRN for PAIN, #14 Prov: GROVER DIAS MD 10/01/17 Problem Qualifiers GROVER DIAS MD Oct 01, 2017 13:30
[2017-10-01 13:41] VITALS: BP 136/79
== END 2017-10-01 13:42 | disposition home or self-care (01) ==
LOC: ER 11:17
DX: R10.32 Left lower quadrant pain (principal); T36.95XA Adverse effect of unspecified systemic antibiotic, initial encounter; F41.9 Anxiety disorder, unspecified; E03.9 Hypothyroidism, unspecified; E66.01 Morbid (severe) obesity due to excess calories; Z68.42 Body mass index [BMI] 45.0-49.9, adult; Z86.2 Personal history of diseases of the blood and blood-forming organs and certain disorders involving the immune mechanism; Z90.49 Acquired absence of other specified parts of digestive tract; Z98.51 Tubal ligation status; Y92.89 Other specified places as the place of occurrence of the external cause
CPT/HCPCS: 36415; 74176; 80053; 81001; 81025; 83690; 85025; 87086; 96361; 96374; 96375; 99285; J1885; J2405; J7030

== ENCOUNTER 2017-11-28 11:32 | Emergency (ER) | payer OTHER ==
[~2017-11-28 11:32] MED LIST changes: +Percogesic PO
[2017-11-28] MEDS ORDERED: KETOROLAC 30 MG/ML VIAL. IV ONE (12:15)
[2017-11-28] MEDS ORDERED: ASPIRIN 81 MG TAB.CHEW PO ONE (12:15)
--- NOTE | 2017-11-28 12:25 | RAD ---
EXAM: CHEST 1 VIEW History: Chest pain COMPARISON: 07/14/2017 TECHNIQUE: Single portable radiograph of the chest FINDINGS: The cardiac silhouette is unremarkable. The lungs are clear bilaterally. The costophrenic sulci are clear and well demarcated. IMPRESSION: No radiographic evidence of an acute cardiopulmonary process. Electronically signed by: Tim Lowry MD (11/28/2017 12:22 PM) [id number]
[2017-11-28 12:44] LABS: BASO # 0.1 x10^3/uL (0.0-0.2); BASO % 1 % (0-3); EOS # 0.2 x10^3/uL (0.0-0.7); EOS % 3 % (0-3); HEMATOCRIT 36.7 % (36.0-47.0); HEMOGLOBIN 12.2 g/dL (12.0-15.5); LYMPH # 1.8 x10^3/uL (1.0-4.8); LYMPH % 28 % (24-48); MEAN CORPUSCULAR HEMOGLOBIN 25 pg (25-35); MEAN CORPUSCULAR HGB CONC 33 g/dL (31-37); MEAN CORPUSCULAR VOLUME 75 fL (79-100); MONO # 0.4 x10^3/uL (0.0-1.1); MONO % 5 % (0-9); NEUT # 4.2 x10^3uL (1.8-7.7); NEUT % 63 % (31-73); PLATELET COUNT 294 x10^3/uL (140-400); RED BLOOD COUNT 4.93 x10^6/uL (3.50-5.40); RED CELL DISTRIBUTION WIDTH 14.7 % (11.5-14.5); WHITE BLOOD COUNT 6.6 x10^3/uL (4.0-11.0)
[2017-11-28 12:50] LABS: ALBUMIN 3.9 g/dL (3.4-5.0); ALBUMIN/GLOBULIN RATIO 1.1 (1.0-1.7); CALCIUM 9.1 mg/dL (8.5-10.1); CREATININE 0.9 mg/dL (0.6-1.0); POTASSIUM 4.1 mmol/L (3.5-5.1); TOTAL BILIRUBIN 0.9 mg/dL (0.2-1.0); TOTAL PROTEIN 7.6 g/dL (6.4-8.2)
[2017-11-28] MEDS ORDERED: NAPR500T8 PO (13:03)
--- NOTE | 2017-11-28 13:03 | PHYS DOC ---
Past History Past Medical History: Anemia, Bronchitis, Gallstones, Hypothyroid, Other Past Surgical History: Appendectomy, Cholecystectomy, Tubal ligation Smoking: Non-smoker Alcohol Use: None Drug Use: None Adult General Chief Complaint Chief Complaint: CHEST PAIN HPI HPI 42-year-old female presents with sharp midsternal chest pain. 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 She states she was moving around quite a bit trying to change her brief. She denies any shortness of breath dyspnea on exertion. She's not had any fever chills or sweats. No cough or congestion. No hemoptysis. She states that it does hurt when she takes a deep breath.[] Review of Systems Review of Systems Constitutional: Denies fever or chills [] Eyes: Denies change in visual acuity, redness, or eye pain [] HENT: Denies nasal congestion or sore throat [] Respiratory: Denies cough or shortness of breath [] Cardiovascular: No additional information not addressed in HPI [] GI: Denies abdominal pain, nausea, vomiting, bloody stools or diarrhea [] : Denies dysuria or hematuria [] Musculoskeletal: Denies back pain or joint pain [] Integument: Denies rash or skin lesions [] Neurologic: Denies headache, focal weakness or sensory changes [] Endocrine: Denies polyuria or polydipsia [] All other systems were reviewed and found to be within normal limits, except as documented in this note. Current Medications Current Medications Current Medications Medications (Trade) Dose Ordered Sig/Flip Start Time Stop Time Status Last Admin Dose Admin Aspirin (Children'S Aspirin) 324 mg 1X ONCE 11/28/17 12:15 11/28/17 12:16 DC 11/28/17 12:30 324 MG Ketorolac Tromethamine (Toradol 30mg Vial) 30 mg 1X ONCE 11/28/17 12:15 11/28/17 12:16 DC 11/28/17 12:34 30 MG Allergies Allergies Allergies Coded Allergies Type Severity Reaction Last Updated Verified No Known Drug Allergies 07/14/17 No Physical Exam Physical Exam Constitutional: Well developed, well nourished, no acute distress, non-toxic appearance. [] HENT: Normocephalic, atraumatic, bilateral external ears normal, oropharynx moist, no oral exudates, nose normal. [] Eyes: PERRLA, EOMI, conjunctiva normal, no discharge. [] Neck: Normal range of motion, no tenderness, supple, no stridor. [] Cardiovascular:Heart rate regular rhythm, no murmur [] Lungs & Thorax: Bilateral breath sounds clear to auscultation her costosternal border is tender to palpation exactly reproduces symptoms [] Abdomen: Bowel sounds normal, soft, no tenderness, no masses, no pulsatile masses. [] Skin: Warm, dry, no erythema, no rash. [] Back: No tenderness, no CVA tenderness. [] Extremities: No tenderness, no cyanosis, no clubbing, ROM intact, no edema. [] Neurologic: Alert and oriented X 3, normal motor function, normal sensory function, no focal deficits noted. [] Psychologic: Affect normal, judgement normal, mood normal. [] Current Patient Data Lab Results Laboratory Tests Test 11/28/17 12:20 11/28/17 12:27 Sodium Level 138 mmol/L (136-145) Potassium Level 4.1 mmol/L (3.5-5.1) Chloride Level 104 mmol/L (98-107) Carbon Dioxide Level 28 mmol/L (21-32) Anion Gap 6 (6-14) Blood Urea Nitrogen 11 mg/dL (7-20) Creatinine 0.9 mg/dL (0.6-1.0) Estimated GFR (Cockcroft-Gault) 69.0 BUN/Creatinine Ratio 12 (6-20) Glucose Level 109 mg/dL (70-99) H Calcium Level 9.1 mg/dL (8.5-10.1) Total Bilirubin 0.9 mg/dL (0.2-1.0) Aspartate Amino Transferase (AST) 30 U/L (15-37) Alanine Aminotransferase (ALT) 29 U/L (14-59) Alkaline Phosphatase 84 U/L (46-116) Total Protein 7.6 g/dL (6.4-8.2) Albumin 3.9 g/dL (3.4-5.0) Albumin/Globulin Ratio 1.1 (1.0-1.7) White Blood Count 6.6 x10^3/uL (4.0-11.0) Red Blood Count 4.93 x10^6/uL (3.50-5.40) Hemoglobin 12.2 g/dL (12.0-15.5) Hematocrit 36.7 % (36.0-47.0) Mean Corpuscular Volume 75 fL (79-100) L Mean Corpuscular Hemoglobin 25 pg (25-35) Mean Corpuscular Hemoglobin Concent 33 g/dL (31-37) Red Cell Distribution Width 14.7 % (11.5-14.5) H Platelet Count 294 x10^3/uL (140-400) Neutrophils (%) (Auto) 63 % (31-73) Lymphocytes (%) (Auto) 28 % (24-48) Monocytes (%) (Auto) 5 % (0-9) Eosinophils (%) (Auto) 3 % (0-3) Basophils (%) (Auto) 1 % (0-3) Neutrophils # (Auto) 4.2 x10^3uL (1.8-7.7) Lymphocytes # (Auto) 1.8 x10^3/uL (1.0-4.8) Monocytes # (Auto) 0.4 x10^3/uL (0.0-1.1) Eosinophils # (Auto) 0.2 x10^3/uL (0.0-0.7) Basophils # (Auto) 0.1 x10^3/uL (0.0-0.2) EKG EKG EKG: Normal sinus rhythm rate of [address]-T changes] Radiology/Procedures Radiology/Procedures [] Impressions: PROCEDURE: CHEST AP ONLY EXAM: CHEST 1 VIEW History: Chest pain COMPARISON: 07/14/2017 TECHNIQUE: Single portable radiograph of the chest FINDINGS: The cardiac silhouette is unremarkable. The lungs are clear bilaterally. The costophrenic sulci are clear and well demarcated. IMPRESSION: No radiographic evidence of an acute cardiopulmonary proces Course & Med Decision Making Course & Med Decision Making Pertinent Labs and Imaging studies reviewed. (See chart for details) [ED course: Evaluation reveals 42-year-old female with likely chest strain. Her physical exam was consistent with costochondral tenderness at the costosternal border. I will provide the patient was some naproxen to take at home and I think she will do fine.] Dragon Disclaimer Dragon Disclaimer This electronic medical record was generated, in whole or in part, using a voice recognition dictation system. Departure Departure: Impression: Primary Impression: Acute chest wall pain Disposition: HOME, SELF-CARE Condition: IMPROVED Referrals: YSABEL POWERS MD (PCP) Patient Instructions: Costochondritis Additional Instructions: Take her medication as directed. Return to the emergency department with any new or concerning symptoms Scripts Naproxen (NAPROXEN) 500 Mg Tablet.dr 1 TAB PO Q12HR PRN for PAIN, #60 TAB 1 Refill Prov: MARK PRAKASH DO 11/28/17 MARK PRAKASH DO Nov 28, 2017 13:03
[2017-11-28 13:08] VITALS: BP 132/86
--- NOTE | 2017-11-28 15:16 | EKG ---
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
== END 2017-11-28 13:08 | disposition home or self-care (01) ==
LOC: ER 11:32
DX: R07.2 Precordial pain (principal); E03.9 Hypothyroidism, unspecified; Z86.2 Personal history of diseases of the blood and blood-forming organs and certain disorders involving the immune mechanism
CPT/HCPCS: 36415; 71045; 80053; 84484; 85025; 93005; 96374; 99285; J1885

== ENCOUNTER 2018-01-26 14:38 | Observation (INO) | payer OTHER ==
[~2018-01-26] VITALS: Ht 157.5 cm; Wt 110.7 kg
[~2018-01-26 14:38] MED LIST changes: +NAPR500T8 PO
[2018-01-26 15:00] VITALS: BP 154/86
[2018-01-26] MEDS ORDERED: LEVO137T3 PO (17:06)
[2018-01-26] MEDS: IV NORMAL SALINE 1,000ML 1,000 ML IV SCH ×2 (17:30→21:19)
[2018-01-26 18:12] LABS: BASO # 0.1 x10^3/uL (0.0-0.2); BASO % 1 % (0-3); EOS % 0 % (0-3); HEMATOCRIT 36.2 % (36.0-47.0); HEMOGLOBIN 11.8 g/dL (12.0-15.5); LYMPH # 1.4 x10^3/uL (1.0-4.8); LYMPH % 14 % (24-48); MEAN CORPUSCULAR HEMOGLOBIN 24 pg (25-35); MEAN CORPUSCULAR HGB CONC 33 g/dL (31-37); MEAN CORPUSCULAR VOLUME 73 fL (79-100); MONO # 0.4 x10^3/uL (0.0-1.1); MONO % 4 % (0-9); NEUT # 8.2 x10^3uL (1.8-7.7); NEUT % 81 % (31-73); PLATELET COUNT 346 x10^3/uL (140-400); RED BLOOD COUNT 4.99 x10^6/uL (3.50-5.40); RED CELL DISTRIBUTION WIDTH 15.5 % (11.5-14.5); WHITE BLOOD COUNT 10.1 x10^3/uL (4.0-11.0)
[2018-01-26 18:16] LABS: CALCIUM 9.1 mg/dL (8.5-10.1); CREATININE 1.1 mg/dL (0.6-1.0); GFR 54.7; POTASSIUM 4.6 mmol/L (3.5-5.1); TOTAL BILIRUBIN 0.8 mg/dL (0.2-1.0)
[2018-01-26] MEDS ORDERED: IOHEXOL 240 MG/ML 50ML VIAL. PO ONE (18:30)
[2018-01-26] MEDS: ONDANSETRON ODT 4 MG TAB.RAPDIS PO PRN (18:43)
[2018-01-26 20:10] VITALS: BP 136/72
--- NOTE | 2018-01-26 20:37 | RAD ---
EXAM: Abdomen and pelvis CT without intravenous contrast. HISTORY: Left lower quadrant pain and nausea. TECHNIQUE: Computed tomographic images of the abdomen and pelvis were obtained without intravenous contrast. Multiplanar reformatting was performed. *One or more of the following individualized dose reduction techniques were utilized for this examination: 1. Automated exposure control. 2. Adjustment of the mA and/or kV according to patient size. 3. Use of iterative reconstruction technique. COMPARISON: 10/01/2017. FINDINGS: Evaluation of the lower thorax demonstrates left basilar atelectasis. There is no infiltrate or pleural effusion. There is an 8 mm cyst within the left hepatic lobe. The gallbladder is surgically absent. The pancreas is unremarkable. The spleen is upper normal in size. The adrenal glands are unremarkable. The kidneys are unremarkable. The appendix is surgically absent. No abnormally thickened or dilated loop of bowel is seen. There is no obstruction. The bladder is unremarkable. There are small uterine fibroids. The ovaries are prominent in size. There is no lymphadenopathy. There is a tiny fat-containing umbilical hernia. There is no suspicious osseous lesion. IMPRESSION: 1. No acute abdominal or pelvic finding. 2. Small hypodense lesion within the left hepatic lobe. In the absence of known malignancy, this is likely a cyst. 3. Suspected small uterine fibroids and prominent ovaries, the latter of which may be due to multiple follicles. This is difficult to assess in the absence of contrast. Electronically signed by: Rossana Aragon MD (01/26/2018 8:34 PM) [facility]
[2018-01-26] MEDS: MORPHINE SULFATE 2 MG/ML DISP.SYRIN. IV PRN (22:17)
[2018-01-27 00:03] VITALS: BP 127/83
[2018-01-27] MEDS: MORPHINE SULFATE 2 MG/ML DISP.SYRIN. IV PRN ×3 (01:42→08:20)
[2018-01-27] MEDS: LEVOTHYROXINE 137 MCG TABLET PO SCH (06:31)
[2018-01-27 06:34] VITALS: BP 109/66
[2018-01-27] MEDS: IV NORMAL SALINE 1,000ML 1,000 ML IV SCH ×3 (06:35→19:40)
[2018-01-27] MEDS: ONDANSETRON ODT 4 MG TAB.RAPDIS PO PRN ×2 (08:21→19:03)
[2018-01-27] MEDS: PANTOPRAZOLE 40 MG TABLET. PO SCH (10:58)
[2018-01-27] MEDS: HYDROcodone/APAP 5/325MG 1 TAB TABLET PO PRN ×2 (10:58→19:03)
[2018-01-27 12:05] VITALS: BP 143/81
[2018-01-27] MEDS ORDERED: IV NORMAL SALINE 1,000ML 1,000 ML IV SCH (19:00)
--- NOTE | 2018-01-27 19:41 | PN ---
DATE: 01/27/2018 SUBJECTIVE: This 42-year-old female came in with severe flank pain, abdominal pain, nausea, vomiting. The patient is resting fairly comfortably, although still complaining of lower back pain and some menstrual irregularity. The patient; otherwise, seems to be doing relatively somewhat better than she was. We are advancing her diet. Given her continued need on IV, we will give her some IV fluids and pain medication. Otherwise, the patient is basically just complaining of pain. OBJECTIVE: VITAL SIGNS: Blood pressure 143/80, respiratory rate 20, pulse 80. She is afebrile. GENERAL: The patient is alert and oriented. LUNGS: Diminished, but clear. CARDIOVASCULAR: Stable. ABDOMEN: Soft, diffuse tenderness in the left mid quadrant area, but no rebounding or guarding. Positive bowel sounds. PLAN: Start her on Protonix. We will continue with such. Still waiting to get a urine specimen from her. We will make further evaluation on her as indicated. YSABEL POWERS MD DR: THAO/karin JOB#: [id number] / [id number]
[2018-01-27 19:46] VITALS: BP 146/97
[2018-01-27] MEDS: ORPHENADRINE ER 100 MG TABLET.ER PO PRN (22:04)
[2018-01-27 22:10] VITALS: BP 138/87
[2018-01-28] MEDS: IV NORMAL SALINE 1,000ML 1,000 ML IV SCH ×2 (01:29→23:43)
[2018-01-28 03:20] VITALS: BP 113/70
[2018-01-28] MEDS: LEVOTHYROXINE 137 MCG TABLET PO SCH (05:54)
[2018-01-28 05:55] VITALS: BP 108/65
[2018-01-28] MEDS: HYDROcodone/APAP 5/325MG 1 TAB TABLET PO PRN ×3 (07:34→17:36)
[2018-01-28] MEDS: PANTOPRAZOLE 40 MG TABLET. PO SCH (07:34)
[2018-01-28] MEDS: ONDANSETRON ODT 4 MG TAB.RAPDIS PO PRN (07:34)
[2018-01-28 07:55] LABS: BASO # 0.1 x10^3/uL (0.0-0.2); BASO % 1 % (0-3); EOS # 0.2 x10^3/uL (0.0-0.7); EOS % 3 % (0-3); HEMATOCRIT 32.7 % (36.0-47.0); HEMOGLOBIN 10.5 g/dL (12.0-15.5); LYMPH # 1.8 x10^3/uL (1.0-4.8); LYMPH % 30 % (24-48); MEAN CORPUSCULAR HEMOGLOBIN 23 pg (25-35); MEAN CORPUSCULAR HGB CONC 32 g/dL (31-37); MEAN CORPUSCULAR VOLUME 73 fL (79-100); MONO # 0.4 x10^3/uL (0.0-1.1); MONO % 7 % (0-9); NEUT # 3.5 x10^3uL (1.8-7.7); NEUT % 60 % (31-73); PLATELET COUNT 271 x10^3/uL (140-400); RED BLOOD COUNT 4.49 x10^6/uL (3.50-5.40); RED CELL DISTRIBUTION WIDTH 15.5 % (11.5-14.5); WHITE BLOOD COUNT 5.9 x10^3/uL (4.0-11.0)
[2018-01-28 08:06] LABS: CALCIUM 7.9 mg/dL (8.5-10.1); CREATININE 0.9 mg/dL (0.6-1.0); POTASSIUM 3.9 mmol/L (3.5-5.1)
[2018-01-28 11:27] VITALS: BP 142/81
[2018-01-28] MEDS: ORPHENADRINE ER 100 MG TABLET.ER PO PRN (12:39)
[2018-01-28 16:23] LABS: BACTERIA,URINE FEW /HPF (0-FEW); BILIRUBIN,URINE NEG (NEG); CLARITY,URINE HAZY; COLOR,URINE STRAW; GLUCOSE,URINE NEG (NEG); NITRITE,URINE NEG (NEG); UROBILINOGEN,URINE 0.2 mg/dL (0.2 mg/dL); WBC,URINE OCC /HPF (0-4)
[2018-01-28 16:24] VITALS: BP 143/87
[2018-01-28 16:24] LABS: SQUAMOUS EPITHELIAL CELL,UR FEW /LPF
--- NOTE | 2018-01-28 18:56 | PN ---
DATE: SUBJECTIVE: A 42-year-old female with abdominal pain. She is having severe left lower quadrant pain. CAT scan did not show anything a couple of days ago. We will repeat an abdominal series this afternoon as she says her pain is 9 to 10 over 10. Given her IV fentanyl, IV fluids. We will continue to monitor once those results are back in. OBJECTIVE: VITAL SIGNS: Otherwise, blood pressure up to 140/80, respiratory rate 18, pulse 70, afebrile. GENERAL: The patient is alert and oriented. LUNGS: Diminished, but clear. CARDIOVASCULAR: Stable. ABDOMEN: Very tender in that left lower quadrant area. ASSESSMENT AND PLAN: Reviewing CT scan did not show anything in that area per se. In any case, we will go ahead and continue to work her up and get the abdominal series. YSABEL POWERS MD DR: THAO/karin JOB#: [id number] / [id number]
[2018-01-28 19:15] VITALS: BP 131/69
[2018-01-28] MEDS: APIXABAN 2.5 MG TABLET PO SCH (19:32)
[2018-01-28 23:11] VITALS: BP 128/75
[2018-01-29] MEDS: ORPHENADRINE ER 100 MG TABLET.ER PO PRN (00:26)
[2018-01-29] MEDS: HYDROcodone/APAP 5/325MG 1 TAB TABLET PO PRN (00:48)
[2018-01-29] MEDS: ONDANSETRON ODT 4 MG TAB.RAPDIS PO PRN (00:53)
[2018-01-29] MEDS ORDERED: ONDANSETRON PF 4 MG/2 ML VIAL. IV PRN (01:00)
[2018-01-29 05:37] VITALS: BP 121/75
[2018-01-29] MEDS: LEVOTHYROXINE 137 MCG TABLET PO SCH (06:02)
[2018-01-29] MEDS ORDERED: SIMETHICONE 80 MG TAB.CHEW PO PRN (09:15)
[2018-01-29] MEDS ORDERED: KETOROLAC 30 MG/ML VIAL. IV PRN (09:15)
[2018-01-29] MEDS: PANTOPRAZOLE 40 MG TABLET. PO SCH (09:29)
[2018-01-29] MEDS: APIXABAN 2.5 MG TABLET PO SCH (09:29)
[2018-01-29] MEDS ORDERED: SIME80TA14 PO (10:13)
[2018-01-29 10:43] VITALS: BP 136/74
--- NOTE | 2018-01-29 11:18 | DS ---
DATE OF DISCHARGE: HOSPITAL COURSE: The patient is a 42-year-old female in with a severe left flank pain. The patient is doing somewhat better, turned over to Toradol. She is on her menstrual cycles, could be related to that imaging of her CT abdomen and pelvis was unremarkable; however, she did have some uterine fibroids and prominent ovaries. She will be referred down to Gynecology for such and also we will continue to monitor her accordingly. Abdominal series from early this morning was unremarkable or not if still pending. In any case, she is walking around. She will be discharged home, make further evaluation on her as indicated by Gynecology. IMPRESSION: Therefore, left flank pain, nausea, vomiting, anemia of chronic disease, fibroids. The patient will be discharged home and followup on a regular diet, decreased activity. Follow up with [facility]. YSABEL POWERS MD DR: THAO/karin JOB#: [id number] / [id number]
--- NOTE | 2018-01-29 15:53 | RAD ---
Acute abdomen series. History: Left lower quadrant pain. Comparison: CT abdomen pelvis January 26, 2018. Findings: Frontal chest radiograph. Cardiac silhouette appears within normal limits for size. No pneumoperitoneum, pneumothorax, or large pleural effusion seen. No focal infiltrate is identified. Supine and upright AP views of the abdomen. Bowel gas pattern is nonspecific, without evidence of small bowel obstruction. Oral contrast is seen in the and colon. Cholecystectomy clips are present. Impression: No acute abnormality identified in the chest or abdomen. Electronically signed by: Stevie Baca MD (01/29/2018 3:50 PM) [place] [id number]
== END 2018-01-29 11:23 | disposition home or self-care (01) ==
LOC: INTOOBSV 15:10 → 1 SOUTH 15:10
PROVIDERS: ADMIT Family Medicine; ATTEND Family Medicine
DX: D25.9 Leiomyoma of uterus, unspecified (principal); D63.8 Anemia in other chronic diseases classified elsewhere; N92.6 Irregular menstruation, unspecified; R11.2 Nausea with vomiting, unspecified
CPT/HCPCS: 36415; 74022; 74176; 80048; 80053; 81001; 82150; 83605; 83690; 84443; 84702; 85025; 87086; 96361; 96374; 96375; 96376; G0378; G0379; J1885; J2270; J2405; J3010; Q0162; Q9966; J7030

== ENCOUNTER 2018-04-01 20:26 | Observation (INO) | payer OTHER ==
[~2018-04-01] VITALS: Ht 157.5 cm; Wt 112.7 kg
[~2018-04-01 20:26] MED LIST changes: +ALBU2.5V8 INH; -ALBU8.5H8 INH; +LEVO137T3 PO; +SIME80TA14 PO
--- NOTE | 2018-04-01 20:37 | ED.ADGEN ---
Past History Past Medical History: Anemia, Bronchitis, Gallstones, Hypothyroid, Other Past Surgical History: Appendectomy, Cholecystectomy, Tubal ligation Smoking: Non-smoker Alcohol Use: None Drug Use: None Adult General Chief Complaint Chief Complaint ".. I got pain here on Lt. .. it hurting really bad... its been hurting all day... 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 Patient reportedly had a normal stool today. Patient denies any trauma. Patient denies any injury. Patient has had this pain periodically in the past. Patient describe her pain as severe. No recent travel. No history of bad food. Patient did eat [employer] tonight at 1700 hrs. Patient denies any vaginal discharge.. Patient denies any history of kidney stones. 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 Pt. states this is pain is different. Patient previously seen on for similar complaints. Pt. denies prior colonoscopy evaluations. Patient's had past medical issues of anemia, bronchitis, upper gallstones, hypothyroid, GERD, atypical chest pain, and anxiety. Patient's had previous abdomen surgeries of appendectomy and cholecystectomy . Pt. had tubal ligation and in 2003. . Pt. normally follows with Dr. Villela. Review of Systems Review of Systems Constitutional: Denies fever or chills [] Eyes: Denies change in visual acuity, redness, or eye pain [] HENT: Denies nasal congestion or sore throat [] Respiratory: Denies cough or shortness of breath [] Cardiovascular: No additional information not addressed in [facility] [] GI: Complaints of Lt lower abdominal pain, nausea. Denies vomiting, bloody stools or diarrhea [] : Denies dysuria or hematuria [] Musculoskeletal: Denies back pain or joint pain [] Integument: Denies rash or skin lesions [] Neurologic: Denies headache, focal weakness or sensory changes [] Endocrine: Denies polyuria or polydipsia [] All other systems were reviewed and found to be within normal limits, except as documented in this note. Family History Family History Noncontributory Current Medications Current Medications Current Medications Medications (Trade) Dose Ordered Sig/Flip Start Time Stop Time Status Last Admin Dose Admin Famotidine (Pepcid Vial) 20 mg 1X ONCE 04/01/18 21:15 04/01/18 21:17 DC 04/01/18 20:59 20 MG Info (Do NOT chart on this entry -- for MONITORING) 1 each PRN DAILY PRN 04/01/18 22:45 04/03/18 22:44 Iohexol (Omnipaque 240 Mg/ml) 50 ml 1X ONCE 04/01/18 22:45 04/01/18 22:46 DC 04/01/18 23:36 50 ML Iohexol (Omnipaque 300 Mg/ml) 75 ml 1X ONCE 04/01/18 22:45 04/01/18 22:46 DC 04/01/18 23:35 75 ML Ketorolac Tromethamine (Toradol 15mg Vial) 15 mg QIDPRN PRN 04/02/18 01:00 04/07/18 00:59 UNV Ketorolac Tromethamine (Toradol 30mg Vial) 30 mg 1X ONCE 04/01/18 21:30 04/01/18 21:32 DC 04/01/18 21:26 30 MG Lactated Ringer's 1,000 ml @ 1,000 mls/hr Q1H 04/01/18 20:38 04/01/18 21:37 DC 04/01/18 20:59 1,000 MLS/HR Magnesium Hydroxide (Milk Of Magnesia) 2,400 mg STK-MED ONCE 04/01/18 21:30 04/01/18 21:32 DC Morphine Sulfate (Morphine 10mg Syringe) 10 mg 1X ONCE 04/01/18 21:30 04/01/18 21:32 DC Ondansetron HCl (Zofran) 4 mg PRN Q4HRS PRN 04/02/18 01:00 04/03/18 00:59 UNV Allergies Allergies Allergies Coded Allergies Type Severity Reaction Last Updated Verified Penicillins Allergy Intermediate 04/01/18 Yes clindamycin Allergy Intermediate 04/01/18 Yes Physical Exam Physical Exam Constitutional: Patient reports in acute distress, non-toxic appearance. [] HENT: Normocephalic, atraumatic, bilateral external ears normal, oropharynx moist, no oral exudates, nose normal. [] Eyes: PERRLA, EOMI, conjunctiva normal, no discharge. [] Neck: Normal range of motion, no tenderness, supple, no stridor. [] Cardiovascular: Bradycardia Heart rate regular rhythm, no murmur [] Lungs & Thorax: Bilateral breath sounds few apexes with basilar crackles and scattered wheezes on auscultation [] Abdomen: Bowel sounds normal, soft, left lower quadrant tenderness, no masses, no pulsatile masses. Obese. Old surgery scars. Pt. declines rectal exam or pelvic at this time. Skin: Warm, dry, no erythema, no rash. [] Back: No tenderness, no CVA tenderness. [] Extremities: No tenderness, no cyanosis, no clubbing, ROM intact, no edema. [] Neurologic: Alert and oriented X 3, normal motor function, normal sensory function, no focal deficits noted. [] Psychologic: Affect anxious, judgement normal, mood normal. [] Current Patient Data Vital Signs Vital Signs Date Time Temp Pulse Resp B/P (MAP) Pulse Ox O2 Delivery O2 Flow Rate FiO2 04/01/18 20:51 98.2 79 18 99 Room Air Lab Results Laboratory Tests Test 04/01/18 20:43 04/01/18 20:55 04/01/18 21:06 White Blood Count 7.1 x10^3/uL (4.0-11.0) Red Blood Count 4.81 x10^6/uL (3.50-5.40) Hemoglobin 10.8 g/dL (12.0-15.5) L Hematocrit 33.8 % (36.0-47.0) L Mean Corpuscular Volume 70 fL (79-100) L Mean Corpuscular Hemoglobin 23 pg (25-35) L Mean Corpuscular Hemoglobin Concent 32 g/dL (31-37) Red Cell Distribution Width 16.6 % (11.5-14.5) H Platelet Count 360 x10^3/uL (140-400) Neutrophils (%) (Auto) 58 % (31-73) Lymphocytes (%) (Auto) 31 % (24-48) Monocytes (%) (Auto) 7 % (0-9) Eosinophils (%) (Auto) 3 % (0-3) Basophils (%) (Auto) 1 % (0-3) Neutrophils # (Auto) 4.1 x10^3uL (1.8-7.7) Lymphocytes # (Auto) 2.2 x10^3/uL (1.0-4.8) Monocytes # (Auto) 0.5 x10^3/uL (0.0-1.1) Eosinophils # (Auto) 0.2 x10^3/uL (0.0-0.7) Basophils # (Auto) 0.1 x10^3/uL (0.0-0.2) Platelet Estimate Adequate (ADEQUATE) Hypochromasia Slight Microcytosis Slight Prothrombin Time 9.9 SEC (9.4-11.4) Prothrombin Time INR 1.0 (0.9-1.1) PTT 24 SEC (23-33) Sodium Level 142 mmol/L (136-145) Potassium Level 4.0 mmol/L (3.5-5.1) Chloride Level 104 mmol/L (98-107) Carbon Dioxide Level 29 mmol/L (21-32) Anion Gap 9 (6-14) Blood Urea Nitrogen 13 mg/dL (7-20) Creatinine 0.9 mg/dL (0.6-1.0) Estimated GFR (Cockcroft-Gault) 69.0 Glucose Level 88 mg/dL (70-99) Calcium Level 9.0 mg/dL (8.5-10.1) Total Bilirubin 0.6 mg/dL (0.2-1.0) Direct Bilirubin 0.1 mg/dL (0.0-0.2) Aspartate Amino Transferase (AST) 25 U/L (15-37) Alanine Aminotransferase (ALT) 38 U/L (14-59) Alkaline Phosphatase 77 U/L (46-116) Creatine Kinase 94 U/L (26-192) Troponin I Quantitative < 0.017 ng/mL (0-0.055) Total Protein 7.5 g/dL (6.4-8.2) Albumin 3.8 g/dL (3.4-5.0) Amylase Level 61 U/L (25-115) Lipase 165 U/L (73-393) Urine Collection Type Unknown Urine Color Yellow Urine Clarity Clear Urine pH 5.5 Urine Specific [place] 1.025 Urine Protein Neg (NEG-TRACE) Urine Glucose (UA) Neg mg/dL (NEG) Urine Ketones (Stick) Neg mg/dL (NEG) Urine Blood Neg (NEG) Urine Nitrite Neg (NEG) Urine Bilirubin Neg (NEG) Urine Urobilinogen Dipstick 0.2 mg/dL (0.2 mg/dL) Urine Leukocyte Esterase Neg (NEG) Urine RBC 0 /HPF (0-2) Urine WBC Occ /HPF (0-4) Urine Squamous Epithelial Cells Mod /LPF Urine Bacteria Few /HPF (0-FEW) Urine Mucus Mod /LPF Urine Opiates Screen Neg (NEG) Urine Methadone Screen Neg (NEG) Urine Barbiturates Neg (NEG) Urine Phencyclidine Screen Neg (NEG) Urine Amphetamine/Methamphetamine Neg (NEG) Urine Benzodiazepines Screen Neg (NEG) Urine Cocaine Screen Neg (NEG) Urine Cannabinoids Screen Neg (NEG) Urine Ethyl Alcohol Neg (NEG) POC Urine HCG, Qualitative hcg negative (Negative) EKG EKG My interpretation of EKG shows a sinus bradycardia 50 bpm. She does have some mild left axis changes. There is low voltage. No acute findings of STEMI with contralateral changes.[] Radiology/Procedures Radiology/Procedures My interpretation of abdomen x-ray shows no significant cardiopulmonary findings. Does have cardiomegaly. No free air in the diaphragm. Nonspecific bowel gas pattern. Does have clips in right upper quadrant. Patient does appear to have stool throughout the colon. CT of abdomen shows no evidence of hydronephrosis. No obvious findings of bowel obstruction. Does have increased stool. There is fullness in left adnexal area and appears to be lobulated and structure. Course & Med Decision Making Course & Med Decision Making Pertinent Labs and Imaging studies reviewed. (See chart for details) Pt. occasionally asleep but when awaken states she is have 20/10 pain.. Request IV pain meds only. Refuses Morphine sub cutaneous. Patient to be admitted to Dr Villela-Will give IV hydration. Obtain ultrasound of left lower quadrant. Patient may be a candidate for colonoscopy at some point. Will attempt to avoid giving narcotics IV to enhance passage of stool. [] Final Impression Final Impression 1. Lt. Lower quadrant Abdomen Pain[] 2. Microcytic hypochromic anemia Hgb 10.8,- 72/23 3. Obese 4. Constipation 5. Left ovarian mass/cyst Dragon Disclaimer Dragon Disclaimer This electronic medical record was generated, in whole or in part, using a voice recognition dictation system. Dragon Disclaimer This chart was dictated in whole or in part using Voice Recognition software in a busy, high-work load, and often noisy Emergency Department environment. It may contain unintended and wholly unrecognized errors or omissions. Discharge Summary Brief Hospital Course Allergies Allergies Coded Allergies Type Severity Reaction Last Updated Verified Penicillins Allergy Intermediate 04/01/18 Yes clindamycin Allergy Intermediate 04/01/18 Yes Vital Signs Vital Signs Date Time Temp Pulse Resp B/P (MAP) Pulse Ox O2 Delivery O2 Flow Rate FiO2 04/01/18 20:51 98.2 79 18 99 Room Air Lab Results Laboratory Tests Test 04/01/18 20:43 04/01/18 20:55 04/01/18 21:06 White Blood Count 7.1 x10^3/uL (4.0-11.0) Red Blood Count 4.81 x10^6/uL (3.50-5.40) Hemoglobin 10.8 g/dL (12.0-15.5) Hematocrit 33.8 % (36.0-47.0) Mean Corpuscular Volume 70 fL (79-100) Mean Corpuscular Hemoglobin 23 pg (25-35) Mean Corpuscular Hemoglobin Concent 32 g/dL (31-37) Red Cell Distribution Width 16.6 % (11.5-14.5) Platelet Count 360 x10^3/uL (140-400) Neutrophils (%) (Auto) 58 % (31-73) Lymphocytes (%) (Auto) 31 % (24-48) Monocytes (%) (Auto) 7 % (0-9) Eosinophils (%) (Auto) 3 % (0-3) Basophils (%) (Auto) 1 % (0-3) Neutrophils # (Auto) 4.1 x10^3uL (1.8-7.7) Lymphocytes # (Auto) 2.2 x10^3/uL (1.0-4.8) Monocytes # (Auto) 0.5 x10^3/uL (0.0-1.1) Eosinophils # (Auto) 0.2 x10^3/uL (0.0-0.7) Basophils # (Auto) 0.1 x10^3/uL (0.0-0.2) Platelet Estimate Adequate (ADEQUATE) Hypochromasia Slight Microcytosis Slight Prothrombin Time 9.9 SEC (9.4-11.4) Prothromb Time International Ratio 1.0 (0.9-1.1) Activated Partial Thromboplast Time 24 SEC (23-33) Sodium Level 142 mmol/L (136-145) Potassium Level 4.0 mmol/L (3.5-5.1) Chloride Level 104 mmol/L (98-107) Carbon Dioxide Level 29 mmol/L (21-32) Anion Gap 9 (6-14) Blood Urea Nitrogen 13 mg/dL (7-20) Creatinine 0.9 mg/dL (0.6-1.0) Estimated GFR (Cockcroft-Gault) 69.0 Glucose Level 88 mg/dL (70-99) Calcium Level 9.0 mg/dL (8.5-10.1) Total Bilirubin 0.6 mg/dL (0.2-1.0) Direct Bilirubin 0.1 mg/dL (0.0-0.2) Aspartate Amino Transf (AST/SGOT) 25 U/L (15-37) Alanine Aminotransferase (ALT/SGPT) 38 U/L (14-59) Alkaline Phosphatase 77 U/L (46-116) Creatine Kinase 94 U/L (26-192) Troponin I Quantitative < 0.017 ng/mL (0-0.055) Total Protein 7.5 g/dL (6.4-8.2) Albumin 3.8 g/dL (3.4-5.0) Amylase Level 61 U/L (25-115) Lipase 165 U/L (73-393) Urine Collection Type Unknown Urine Color Yellow Urine Clarity Clear Urine pH 5.5 Urine Specific [place] 1.025 Urine Protein Neg (NEG-TRACE) Urine Glucose (UA) Neg mg/dL (NEG) Urine Ketones (Stick) Neg mg/dL (NEG) Urine Blood Neg (NEG) Urine Nitrite Neg (NEG) Urine Bilirubin Neg (NEG) Urine Urobilinogen Dipstick 0.2 mg/dL (0.2 mg/dL) Urine Leukocyte Esterase Neg (NEG) Urine RBC 0 /HPF (0-2) Urine WBC Occ /HPF (0-4) Urine Squamous Epithelial Cells Mod /LPF Urine Bacteria Few /HPF (0-FEW) Urine Mucus Mod /LPF Urine Opiates Screen Neg (NEG) Urine Methadone Screen Neg (NEG) Urine Barbiturates Neg (NEG) Urine Phencyclidine Screen Neg (NEG) Urine Amphetamine/Methamphetamine Neg (NEG) Urine Benzodiazepines Screen Neg (NEG) Urine Cocaine Screen Neg (NEG) Urine Cannabinoids Screen Neg (NEG) Urine Ethyl Alcohol Neg (NEG) Bedside Urine HCG, Qualitative hcg negative (Negative) Brief Hospital Course Ms. Aguilar is a 42 old female who presented with Lt. Lower and mid abd. pain. Does have enlarged Lt ovary. Admit Dr. Villela- in Am Discharge Information Condition at Discharge: Improved, Stable Dischare Medications Current Medications Lactated Ringer's 1,000 ml @ 1,000 mls/hr Q1H IV Last administered on at 20:59; Admin Dose 1,000 MLS/HR; Start 04/01/18 at 20:38; Stop 04/01/18 at 21:37; Status DC Ondansetron HCl (Zofran) 8 mg 1X ONCE IV Last administered on 04/01/18at 21:00 ; Admin Dose 8 MG; Start 04/01/18 at 21:15; Stop 04/01/18 at 21:17; Status DC Famotidine (Pepcid Vial) 20 mg 1X ONCE IVP Last administered on 04/01/18at 20: 59; Admin Dose 20 MG; Start 04/01/18 at 21:15; Stop 04/01/18 at 21:17; Status DC Magnesium Hydroxide (Milk Of Magnesia) 2,400 mg 1X ONCE PO Last administered on 04/01/18at 21:37; Admin Dose 2,400 MG; Start 04/01/18 at 21:30; Stop 04/01/18 at 21:32; Status DC Morphine Sulfate (Morphine 10mg Syringe) 10 mg 1X ONCE SQ ; Start 04/01/18 at 21:30; Stop 04/01/18 at 21:32; Status DC Ketorolac Tromethamine (Toradol 30mg Vial) 30 mg 1X ONCE IV Last administered on 04/01/18at 21:26; Admin Dose 30 MG; Start 04/01/18 at 21:30; Stop 04/01/18 at 21:32; Status DC Magnesium Hydroxide (Milk Of Magnesia) 2,400 mg STK-MED ONCE .ROUTE ; Start at 21:30; Stop 04/01/18 at 21:32; Status DC Iohexol (Omnipaque 240 Mg/ml) 50 ml 1X ONCE PO Last administered on 04/01/18at 23:36; Admin Dose 50 ML; Start 04/01/18 at 22:45; Stop 04/01/18 at 22:46; Status DC Iohexol (Omnipaque 300 Mg/ml) 75 ml 1X ONCE IV Last administered on 04/01/18at 23:35; Admin Dose 75 ML; Start 04/01/18 at 22:45; Stop 04/01/18 at 22:46; Status DC Info (Do NOT chart on this entry -- for MONITORING) 1 each PRN DAILY PRN MC SEE COMMENTS; Start 04/01/18 at 22:45; Stop 04/03/18 at 22:44 Ondansetron HCl (Zofran) 4 mg PRN Q4HRS PRN IV NAUSEA/VOMITING; Start 04/02/18 at 01:00; Stop 04/03/18 at 00:59; Status UNV Ketorolac Tromethamine (Toradol 15mg Vial) 15 mg QIDPRN PRN IV pain; Start at 01:00; Stop 04/07/18 at 00:59; Status UNV Active Scripts Active Simethicone 80 Mg Tab.chew 80 Mg PO PRN AFTMEALHC PRN Reported Levothyroxine Sodium 137 Mcg Tablet 1 Tab PO DAILY06 TOI THOMAS MD Apr 01, 2018 20:37
[2018-04-01] MEDS ORDERED: IV RINGERS SOLUTION,LACTATED 1,000 ML IV SCH (20:38)
[2018-04-01 21:08] LABS: BASO # 0.1 x10^3/uL (0.0-0.2); BASO % 1 % (0-3); EOS # 0.2 x10^3/uL (0.0-0.7); EOS % 3 % (0-3); HEMATOCRIT 33.8 % (36.0-47.0); HEMOGLOBIN 10.8 g/dL (12.0-15.5); LYMPH # 2.2 x10^3/uL (1.0-4.8); LYMPH % 31 % (24-48); MEAN CORPUSCULAR HEMOGLOBIN 23 pg (25-35); MEAN CORPUSCULAR HGB CONC 32 g/dL (31-37); MEAN CORPUSCULAR VOLUME 70 fL (79-100); MONO # 0.5 x10^3/uL (0.0-1.1); MONO % 7 % (0-9); NEUT # 4.1 x10^3uL (1.8-7.7); NEUT % 58 % (31-73); PLATELET COUNT 360 x10^3/uL (140-400); RED BLOOD COUNT 4.81 x10^6/uL (3.50-5.40); RED CELL DISTRIBUTION WIDTH 16.6 % (11.5-14.5); WHITE BLOOD COUNT 7.1 x10^3/uL (4.0-11.0)
[2018-04-01] MEDS ORDERED: FAMOTIDINE 20 MG/2 ML VIAL IVP ONE (21:15)
[2018-04-01] MEDS ORDERED: ONDANSETRON PF 4 MG/2 ML VIAL. IV ONE (21:15)
[2018-04-01 21:18] LABS: BARBITURATES NEG (NEG); BENZODIAZEPINES NEG (NEG); CANNABINOIDS NEG (NEG); COCAINE NEG (NEG); METHADONE NEG (NEG); OPIATES NEG (NEG); PHENCYCLIDINE NEG (NEG)
[2018-04-01 21:18] LABS: ALBUMIN 3.8 g/dL (3.4-5.0); CREATININE 0.9 mg/dL (0.6-1.0); DIRECT BILIRUBIN 0.1 mg/dL (0.0-0.2); TOTAL BILIRUBIN 0.6 mg/dL (0.2-1.0); TOTAL PROTEIN 7.5 g/dL (6.4-8.2)
[2018-04-01 21:21] LABS: BACTERIA,URINE FEW /HPF (0-FEW); BILIRUBIN,URINE NEG (NEG); CLARITY,URINE CLEAR; COLOR,URINE YELLOW; GLUCOSE,URINE NEG (NEG); NITRITE,URINE NEG (NEG); RBC,URINE 0 /HPF (0-2); SQUAMOUS EPITHELIAL CELL,UR MOD /LPF; UROBILINOGEN,URINE 0.2 mg/dL (0.2 mg/dL); WBC,URINE OCC /HPF (0-4)
[2018-04-01 21:23] LABS: AMPHETAMINE/METHAMPHETAMINE NEG (NEG)
[2018-04-01] MEDS ORDERED: KETOROLAC 30 MG/ML VIAL. IV ONE (21:30)
[2018-04-01] MEDS ORDERED: MORPHINE SULFATE 10 MG/ML SYRINGE. SQ ONE (21:30)
[2018-04-01] MEDS ORDERED: MAGNESIUM HYDROXIDE 2,400 MG/30 ML ORAL.SUSP. PO ONE (21:30)
[2018-04-01] MEDS ORDERED: MAGNESIUM HYDROXIDE 2,400 MG/30 ML ORAL.SUSP. ONE (21:30)
[2018-04-01 21:43] LABS: HYPOCHROMIA SLIGHT; MICROCYTOSIS SLIGHT; PLT ESTIMATE ADEQUATE (ADEQUATE)
--- NOTE | 2018-04-01 21:57 | RAD ---
Abdomen series including PA chest 04/01/2018. Reason for exam: Left-sided pain and nausea. Comparison is made with a study of 01/29/2018. No free air is seen. Gas is present mostly in the colon. There is no evidence of obstruction. No abnormal masses or gas collections are seen. There is moderate stool in the colon, especially in the ascending colon. A single view of the chest shows no infiltrate or effusion. The heart appears mildly enlarged, but unchanged. There is prominence of the aortic arch, also similar to the prior exam. Pulmonary vascularity does not appear congested. IMPRESSION: Nonobstructive gas pattern. Electronically signed by: Gerry Rick Jr., MD (04/01/2018 9:53 PM) [facility]
[2018-04-01] MEDS ORDERED: IOHEXOL 300 MG/ML 75 ML VIAL. IV ONE (22:45)
[2018-04-01] MEDS ORDERED: IOHEXOL 240 MG/ML 50ML VIAL. PO ONE (22:45)
[2018-04-01] MEDS ORDERED: CONTRAST GIVEN MC PRN (22:45)
--- NOTE | 2018-04-02 00:24 | RAD ---
INDICATION: LEFT LOWER QUADRANT ABDOMINAL PAIN COMPARISON: January 26, 2018 TECHNIQUE: Axial CT images obtained through the abdomen and pelvis with contrast. One or more of the following individualized dose reduction techniques were utilized for this examination: 1. Automated exposure control; 2. Adjustment of the mA and/or kV according to patient size; 3. Use of iterative reconstruction technique. FINDINGS: Abdominal aorta is not aneurysmal. The left gluteal region there is a fat-containing structure identified measuring approximately 25 x 58 mm. Could be from causes such as lipoma. Small cystic lesion left lobe of liver. Postcholecystectomy changes with prominence of intrahepatic bile ducts which is commonly seen postoperatively. No peripancreatic fluid collection. Spleen mildly prominent in size. No left-sided hydronephrosis. Urinary bladder partially distended at time of exam. No right-sided hydronephrosis. Fullness of the left adnexa. Lobulated appearance. Small fat-containing umbilical hernia. No dilated loops of bowel to suggest obstruction. Scattered prominent lymph nodes. IMPRESSION: 1. No evidence of bowel obstruction. 2. No hydronephrosis. 3. There is some fullness of the left adnexa. It may be helpful to obtain a follow-up ultrasound to further evaluate for an underlying ovarian lesion. Electronically signed by: Kyle Gamez MD (04/02/2018 12:19 AM) [facility]
[2018-04-02] MEDS ORDERED: ONDANSETRON PF 4 MG/2 ML VIAL. IV PRN (01:00)
[2018-04-02 01:32] VITALS: BP 117/74
[2018-04-02] MEDS: KETOROLAC 15 MG/ML VIAL. IV PRN ×2 (02:00→14:13)
--- NOTE | 2018-04-02 06:24 | EKG ---
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
[2018-04-02] MEDS ORDERED: SIMETHICONE 80 MG TAB.CHEW PO PRN (06:30)
[2018-04-02 06:39] VITALS: BP 146/49
[2018-04-02] MEDS ORDERED: MAGNESIUM HYDROXIDE 2,400 MG/30 ML ORAL.SUSP. PO SCH (09:00)
[2018-04-02 10:53] VITALS: BP 147/87
--- NOTE | 2018-04-02 13:37 | RAD ---
Pelvic ultrasound, 04/02/2018: HISTORY: Evaluate left ovary Transabdominal scanning was initially performed. The bladder is not producing a poor sonographic window which in conjunction with the patient's size is limiting the exam. The uterus is at the upper limits of normal in size. The central uterine echo appears to be within normal limits. No uterine abnormality is seen. The ovaries appear to be within normal limits in size. Transvaginal scanning was also performed. There are streak artifacts obscuring portions of the uterus. The ovaries were not well defined, apparently due to their relatively high positions as noted on the current CT study. Review of the CT study shows 2 left ovarian cysts, one of which measures 1.6 cm and the other measures 1.8 cm. No free fluid is evident in the pelvis. IMPRESSION: 1. Suboptimal exam due to technical factors as described above. 2. Small left ovarian cysts. Electronically signed by: Price De La Fuente MD (04/02/2018 1:32 PM) [facility]
[2018-04-03] MEDS ORDERED: LEVOTHYROXINE 137 MCG TABLET PO SCH (06:00)
--- NOTE | 2018-04-11 17:39 | SSS ---
ADMIT DATE: 04/02/2018 SHORT STAY SUMMARY HISTORY OF PRESENT ILLNESS: A 42-year-old female came in through the Emergency Room. The patient presented with left lower quadrant abdominal pain. The patient has been having bowel movements, but she still continued to have significant left lower quadrant pain that was relieved with oral medications. The patient notes the pain was fairly severe caused her to double over. The patient denies any problems with vaginal or menstrually. The patient was admitted for further evaluation of her left lower quadrant pain and control of pain as well. PAST MEDICAL HISTORY: The patient's past medical history includes that of history of cholecystectomy in 05/2017, appendectomy. She has had tubal ligation, , hypothyroidism, anemia and obesity. FAMILY HISTORY: Family history is positive for myocardial infarction, hypertension and asthma. ALLERGIES: To PENICILLIN and CLINDAMYCIN. HOME MEDICATIONS: Include simethicone and thyroid 137 mcg daily. SOCIAL HISTORY: The patient denies smoking, alcohol or drug use. REVIEW OF SYSTEMS: Positive severe abdominal pain in the left lower quadrant. Denies any headaches, visual changes, blurred vision or double vision. Denies chest pain, shortness of breath. Does have some nausea, but no vomiting. Denies any melena, hematochezia or hematemesis. PHYSICAL EXAMINATION: GENERAL: This is a pleasant white female, in moderate amount of pain. VITAL SIGNS: Blood pressure 120/70, respiratory rate 20, pulse 80, afebrile. HEENT: The patient's head was atraumatic, normocephalic. Eyes are PERRLA without jaundice. The mouth and throat were normal. NECK: Supple, no JVD or thyromegaly. LUNGS: Diminished throughout, poor movement of air, but clear. CARDIOVASCULAR: Regular sinus rhythm. ABDOMEN: Soft, diffuse tenderness in that left lower quadrant area. Some guarding, but no rebounding. EXTREMITIES: No clubbing, cyanosis, edema. NEUROLOGIC: Intact. IMAGING STUDIES: 1. The patient's CT scan showed fullness of the left adnexa. She has not had a transvaginal ultrasound and showed some ovarian cyst as noted. 2. Left ovarian cyst is approximately 1.6-1.8 cm. The patient's pain was controlled with oral medication. She will be sent out to see a quill machine operator for further evaluation of her ovarian cyst and make further evaluation on her as indicated. Otherwise, the patient made good progress. IMPRESSION: Left lower quadrant pain, ovarian cyst, anemia of chronic disease, hemoglobin of 10, 33. PLAN: The patient will be discharged home, follow up as an outpatient with her quill machine operator. She will be on a regular diet, decreased activity, and followup accordingly as indicated. YSABEL POWERS MD DR: THAO/nts JOB#: [id number] / [id number]
== END 2018-04-02 15:00 | disposition home or self-care (01) ==
LOC: ER 20:26 → INTOOBSV 04-02 01:20 → 1 SOUTH 04-02 01:20 → UNDOADMOB 04-02 01:20
PROVIDERS: ADMIT Family Medicine; ATTEND Family Medicine
DX: N83.292 Other ovarian cyst, left side (principal); D63.8 Anemia in other chronic diseases classified elsewhere; E03.9 Hypothyroidism, unspecified; E66.9 Obesity, unspecified; K21.9 Gastro-esophageal reflux disease without esophagitis; F41.9 Anxiety disorder, unspecified; D64.9 Anemia, unspecified; Z82.49 Family history of ischemic heart disease and other diseases of the circulatory system; Z82.5 Family history of asthma and other chronic lower respiratory diseases; Z90.49 Acquired absence of other specified parts of digestive tract; Z98.51 Tubal ligation status; Z88.8 Allergy status to other drugs, medicaments and biological substances; Z88.0 Allergy status to penicillin
CPT/HCPCS: 36415; 74022; 74177; 76830; 76856; 80048; 80076; 80307; 81001; 81025; 82150; 82550; 83690; 84484; 85025; 85610; 85730; 93005; 96374; 96375; 96376; 99284; G0378; J1885; J2405; J3490; J7120; Q9966; Q9967; 96361; G0379; 99285-25

== ENCOUNTER 2018-06-09 10:57 | Emergency (ER) | payer OTHER ==
[~2018-06-09] VITALS: Ht 157.5 cm; Wt 109.0 kg
[2018-06-09 10:57] VITALS: BP 129/71
--- NOTE | 2018-06-09 11:56 | PHYS DOC ---
Past History Past Medical History: Anemia, Bronchitis, Gallstones, Hypothyroid, Other Past Surgical History: Appendectomy, Cholecystectomy, Tubal ligation Smoking: Non-smoker Alcohol Use: None Drug Use: None Adult General Chief Complaint Chief Complaint: UPPER EXTREMITY INJURY HPI HPI 42-year-old female presents with left hand pain. The patient [place] with her 75 pound dog. The dog got excited to go play with the other dogs and knocked the patient over. As she fell she grabbed the leash to restrain the dog RUNNING which smacked the posterior part of her hand into a hard patch ground. The patient had immediate pain in her hand. She has some ecchymosis and swelling is concerned about fracture. She did hit her head on the ground but states that she is feeling okay from this. She does not have a headache. He did not lose consciousness. Review of Systems Review of Systems Constitutional: Denies fever or chills [] Eyes: Denies change in visual acuity, redness, or eye pain [] HENT: Denies nasal congestion or sore throat [] Respiratory: Denies cough or shortness of breath [] Cardiovascular: No additional information not addressed in HPI [] GI: Denies abdominal pain, nausea, vomiting, bloody stools or diarrhea [] : Denies dysuria or hematuria [] Musculoskeletal: Left hand pain[] Integument: Denies rash or skin lesions [] Neurologic: Denies headache, focal weakness or sensory changes [] Endocrine: Denies polyuria or polydipsia [] All other systems were reviewed and found to be within normal limits, except as documented in this note. Allergies Allergies Allergies Coded Allergies Type Severity Reaction Last Updated Verified Penicillins Allergy Intermediate 04/01/18 Yes clindamycin Allergy Intermediate 04/01/18 Yes Physical Exam Physical Exam Constitutional: Well developed, well nourished, no acute distress, non-toxic appearance. [] HENT: Normocephalic, atraumatic, bilateral external ears normal, oropharynx moist, no oral exudates, nose normal. [] Eyes: PERRLA, EOMI, conjunctiva normal, no discharge. [] Neck: Normal range of motion, no tenderness, supple, no stridor. [] Cardiovascular:Heart rate regular rhythm, no murmur [] Lungs & Thorax: Bilateral breath sounds clear to auscultation [] Abdomen: Bowel sounds normal, soft, no tenderness, no masses, no pulsatile masses. [] Skin: Warm, dry, no erythema, no rash. [] Back: No tenderness, no CVA tenderness. [] Extremities: Tenderness of the posterior left hand. Mild ecchymosis and swelling. No obvious deformity.[] Neurologic: Alert and oriented X 3, normal motor function, normal sensory function, no focal deficits noted. [] Psychologic: Affect normal, judgement normal, mood normal. [] Current Patient Data Vital Signs Vital Signs Date Time Temp Pulse Resp B/P (MAP) Pulse Ox O2 Delivery O2 Flow Rate FiO2 06/09/18 10:57 98.1 73 20 98 Room Air EKG EKG [] Radiology/Procedures Radiology/Procedures [] Impressions: Preliminary interpretation: No acute bony abnormality. Course & Med Decision Making Course & Med Decision Making Pertinent Labs and Imaging studies reviewed. (See chart for details) Asians and x-rays negative for fracture. I believe she does has a contusion. I advised ibuprofen and ice therapy. She is stable for discharge at this time [] Dragon Disclaimer Dragon Disclaimer This electronic medical record was generated, in whole or in part, using a voice recognition dictation system. Departure Departure: Impression: Primary Impression: Contusion of left hand, initial encounter Additional Impression: Abrasion of left hand, initial encounter Disposition: 01 HOME, SELF-CARE Condition: STABLE Referrals: YSABEL POWERS MD (PCP) Patient Instructions: Hand Contusion, [id number] Problem Qualifiers MINNA SCHAFER DO Jun 09, 2018 11:56
--- NOTE | 2018-06-09 12:05 | RAD ---
HAND LEFT 3V History: left hand pain x 1 day, hit hand on a hard object Comparison: None. Findings: 3 views left hand are submitted. No acute fracture or dislocation is identified. More exact location of pain is not indicated. Impression: 1. No acute osseous abnormality is identified. Electronically signed by: Eliseo Thompson MD (06/09/2018 12:02 PM) [facility]
== END 2018-06-09 12:00 | disposition home or self-care (01) ==
LOC: ER 10:57
DX: S60.222A Contusion of left hand, initial encounter (principal); E03.9 Hypothyroidism, unspecified; Z88.0 Allergy status to penicillin; Z88.1 Allergy status to other antibiotic agents; Z86.2 Personal history of diseases of the blood and blood-forming organs and certain disorders involving the immune mechanism; W18.39XA Other fall on same level, initial encounter; Y93.K1 Activity, walking an animal; Y92.830 Public park as the place of occurrence of the external cause; Y99.8 Other external cause status
CPT/HCPCS: 73130; 99283

== ENCOUNTER 2018-09-25 20:38 | Emergency (ER) | payer OTHER ==
[~2018-09-25] VITALS: Ht 157.5 cm; Wt 110.6 kg
[~2018-09-25 20:38] MED LIST changes: +RANI-376 PO; -RANI150T21 PO
[2018-09-25] MEDS ORDERED: IV RINGERS SOLUTION,LACTATED 1,000 ML IV SCH (20:41)
--- NOTE | 2018-09-25 20:41 | ED.ADGEN ---
Past History Past Medical History: Anemia, Bronchitis, Constipation, Gallstones, Hypothyroid, Other Past Surgical History: Appendectomy, Cholecystectomy, Tubal ligation Smoking: Non-smoker Alcohol Use: None Drug Use: None Adult General Chief Complaint Chief Complaint ".. I am having pain all over my abdomen... down both sides.. I feel blotted. ..." HPI HPI Patient is a 42 year old female who presents with above hx and complaints abd. pain, nausea and vomiting. Patient's pain is somewhat generalized abdomen. She is distended. No history of bad food intake. Patient did eat today at noon. No history of travel or specific ill contacts. Patient has had previous appendectomy and 2, cholecystectomy. Patient denies any history immunosuppression. Follows Dr. Monzon Review of Systems Review of Systems Constitutional: Denies fever or chills [] Eyes: Denies change in visual acuity, redness, or eye pain [] HENT: Denies nasal congestion or sore throat [] Respiratory: Denies cough or shortness of breath [] Cardiovascular: No additional information not addressed in HPI [] GI: Hx. of generalized abdominal pain, nausea,. Denies vomiting, bloody stools or diarrhea [] : Denies dysuria or hematuria [] Musculoskeletal: Denies back pain or joint pain [] Integument: Denies rash or skin lesions [] Neurologic: Denies headache, focal weakness or sensory changes [] Endocrine: Denies polyuria or polydipsia [] All other systems were reviewed and found to be within normal limits, except as documented in this note. Family History Family History Noncontributory Current Medications Current Medications Current Medications Medications (Trade) Dose Ordered Sig/Flip Start Time Stop Time Status Last Admin Dose Admin Famotidine (Pepcid Vial) 20 mg 1X ONCE 09/25/18 20:45 09/25/18 20:47 DC 09/25/18 21:15 20 MG Ketorolac Tromethamine (Toradol 30mg Vial) 30 mg 1X ONCE 09/25/18 22:15 09/25/18 22:16 DC 09/25/18 22:27 30 MG Lactated Ringer's 1,000 ml @ 1,000 mls/hr Q1H 09/25/18 20:41 09/25/18 21:40 DC 09/25/18 21:15 1,000 MLS/HR Magnesium Hydroxide (Milk Of Magnesia) 2,400 mg STK-MED ONCE 09/25/18 21:54 09/25/18 21:55 DC Ondansetron HCl (Zofran) 8 mg 1X ONCE 09/25/18 20:45 09/25/18 20:47 DC 09/25/18 21:15 8 MG Trimethoprim/ Sulfamethoxazole (Bactrim Ds) 1 tab STK-MED ONCE 09/25/18 21:54 09/25/18 21:55 DC Allergies Allergies Allergies Coded Allergies Type Severity Reaction Last Updated Verified Penicillins Allergy Intermediate 04/01/18 Yes clindamycin Allergy Intermediate 04/01/18 Yes Physical Exam Physical Exam Constitutional: Moderately acute distress, non-toxic appearance. [] HENT: Normocephalic, atraumatic, bilateral external ears normal, oropharynx moist, no oral exudates, nose normal. [] Eyes: PERRLA, EOMI, conjunctiva normal, no discharge. [] Neck: Normal range of motion, no tenderness, supple, no stridor. [] Cardiovascular: Bradycardic Heart rate regular rhythm, no murmur [] Lungs & Thorax: Bilateral breath sounds clear to auscultation [] Abdomen: Bowel sounds normal, soft, generalized tenderness, no masses, no pulsatile masses. Distended. No focal rebound. Obese. Old surgery scars. Skin: Warm, dry, no erythema, no rash. [] Back: No tenderness, no CVA tenderness. [] Extremities: No tenderness, no cyanosis, no clubbing, ROM intact, no edema. [] Neurologic: Alert and oriented X 3, normal motor function, normal sensory function, no focal deficits noted. [] Psychologic: Affect anxious, judgement normal, mood normal. [] Current Patient Data Vital Signs Vital Signs Date Time Temp Pulse Resp B/P (MAP) Pulse Ox O2 Delivery O2 Flow Rate FiO2 09/25/18 22:12 55 16 145/92 (109) 99 Room Air 09/25/18 20:38 98.5 Lab Results Laboratory Tests Test 09/25/18 20:45 09/25/18 20:57 Urine Collection Type Unknown Urine Color Jailyn Urine Clarity Hazy Urine pH 6.0 Urine Specific [place] 1.025 Urine Protein Neg (NEG-TRACE) Urine Glucose (UA) Neg mg/dL (NEG) Urine Ketones (Stick) Neg mg/dL (NEG) Urine Blood Trace (NEG) Urine Nitrite Neg (NEG) Urine Bilirubin Neg (NEG) Urine Urobilinogen Dipstick 1 mg/dL (0.2 mg/dL) Urine Leukocyte Esterase Small (NEG) Urine RBC 0 /HPF (0-2) Urine WBC 1-4 /HPF (0-4) Urine Squamous Epithelial Cells Occ /LPF Urine Bacteria 0 /HPF (0-FEW) Urine Opiates Screen Neg (NEG) Urine Methadone Screen Neg (NEG) Urine Barbiturates Neg (NEG) Urine Phencyclidine Screen Neg (NEG) Urine Amphetamine/Methamphetamine Neg (NEG) Urine Benzodiazepines Screen Neg (NEG) Urine Cocaine Screen Neg (NEG) Urine Cannabinoids Screen Neg (NEG) Urine Ethyl Alcohol Neg (NEG) White Blood Count 8.1 x10^3/uL (4.0-11.0) Red Blood Count 5.16 x10^6/uL (3.50-5.40) Hemoglobin 15.3 g/dL (12.0-15.5) Hematocrit 44.9 % (36.0-47.0) Mean Corpuscular Volume 87 fL (79-100) Mean Corpuscular Hemoglobin 30 pg (25-35) Mean Corpuscular Hemoglobin Concent 34 g/dL (31-37) Red Cell Distribution Width 15.1 % (11.5-14.5) H Platelet Count 254 x10^3/uL (140-400) Neutrophils (%) (Auto) 56 % (31-73) Lymphocytes (%) (Auto) 34 % (24-48) Monocytes (%) (Auto) 7 % (0-9) Eosinophils (%) (Auto) 3 % (0-3) Basophils (%) (Auto) 1 % (0-3) Neutrophils # (Auto) 4.5 x10^3uL (1.8-7.7) Lymphocytes # (Auto) 2.7 x10^3/uL (1.0-4.8) Monocytes # (Auto) 0.5 x10^3/uL (0.0-1.1) Eosinophils # (Auto) 0.3 x10^3/uL (0.0-0.7) Basophils # (Auto) 0.1 x10^3/uL (0.0-0.2) Platelet Estimate Adequate (ADEQUATE) Poikilocytosis Slight Anisocytosis Slight Microcytosis Slight Ovalocytes Occ Prothrombin Time 9.9 SEC (9.4-11.4) Prothrombin Time INR 1.0 (0.9-1.1) PTT 25 SEC (23-33) Maternal Serum HCG Beta Subunit < 1 mIU/mL (0-6) Sodium Level 141 mmol/L (136-145) Potassium Level 3.8 mmol/L (3.5-5.1) Chloride Level 104 mmol/L (98-107) Carbon Dioxide Level 29 mmol/L (21-32) Anion Gap 8 (6-14) Blood Urea Nitrogen 9 mg/dL (7-20) Creatinine 0.9 mg/dL (0.6-1.0) Estimated GFR (Cockcroft-Gault) 69.0 Glucose Level 93 mg/dL (70-99) Calcium Level 9.4 mg/dL (8.5-10.1) Total Bilirubin 1.8 mg/dL (0.2-1.0) H Direct Bilirubin 0.3 mg/dL (0.0-0.2) H Aspartate Amino Transferase (AST) 29 U/L (15-37) Alanine Aminotransferase (ALT) 49 U/L (14-59) Alkaline Phosphatase 79 U/L (46-116) Creatine Kinase 90 U/L (26-192) Troponin I Quantitative < 0.017 ng/mL (0-0.055) Total Protein 7.4 g/dL (6.4-8.2) Albumin 4.0 g/dL (3.4-5.0) Amylase Level 45 U/L (25-115) Lipase 98 U/L (73-393) EKG EKG My interpretation EKG shows a sinus bradycardia 59 bpm. No findings of acute STEMI of contralateral changes. Low voltage.[] Radiology/Procedures Radiology/Procedures My interpretation acute abdomen film shows no free air under diaphragm. Nonspecific bowel gas pattern. Increased stool. Surgery clips. Pulmonary portion shows no acute cardiopulmonary findings.[] Course & Med Decision Making Course & Med Decision Making Pertinent Labs and Imaging studies reviewed. (See chart for details) Patient's stay on a clear fluid diet only for the next 48 hours. No solids no milk products. Clear fluids only. Take Bactrim DS twice a day for urinary tract infection. If persistent pain after passage of stool will need a reexam of possibly CT at that time. Follow-up primary care. Return if any concerns. [] Final Impression Final Impression 1. Abdomen pain[] 2. Constipation 3. Possible urinary tract infection Dragon Disclaimer Dragon Disclaimer This electronic medical record was generated, in whole or in part, using a voice recognition dictation system. Discharge Summary Brief Hospital Course Allergies Allergies Coded Allergies Type Severity Reaction Last Updated Verified Penicillins Allergy Intermediate 04/01/18 Yes clindamycin Allergy Intermediate 04/01/18 Yes Vital Signs Vital Signs Date Time Temp Pulse Resp B/P (MAP) Pulse Ox O2 Delivery O2 Flow Rate FiO2 09/25/18 22:12 55 16 145/92 (109) 99 Room Air 09/25/18 20:38 98.5 Lab Results Laboratory Tests Test 09/25/18 20:45 09/25/18 20:57 Urine Collection Type Unknown Urine Color Jailyn Urine Clarity Hazy Urine pH 6.0 Urine Specific [place] 1.025 Urine Protein Neg (NEG-TRACE) Urine Glucose (UA) Neg mg/dL (NEG) Urine Ketones (Stick) Neg mg/dL (NEG) Urine Blood Trace (NEG) Urine Nitrite Neg (NEG) Urine Bilirubin Neg (NEG) Urine Urobilinogen Dipstick 1 mg/dL (0.2 mg/dL) Urine Leukocyte Esterase Small (NEG) Urine RBC 0 /HPF (0-2) Urine WBC 1-4 /HPF (0-4) Urine Squamous Epithelial Cells Occ /LPF Urine Bacteria 0 /HPF (0-FEW) Urine Opiates Screen Neg (NEG) Urine Methadone Screen Neg (NEG) Urine Barbiturates Neg (NEG) Urine Phencyclidine Screen Neg (NEG) Urine Amphetamine/Methamphetamine Neg (NEG) Urine Benzodiazepines Screen Neg (NEG) Urine Cocaine Screen Neg (NEG) Urine Cannabinoids Screen Neg (NEG) Urine Ethyl Alcohol Neg (NEG) White Blood Count 8.1 x10^3/uL (4.0-11.0) Red Blood Count 5.16 x10^6/uL (3.50-5.40) Hemoglobin 15.3 g/dL (12.0-15.5) Hematocrit 44.9 % (36.0-47.0) Mean Corpuscular Volume 87 fL (79-100) Mean Corpuscular Hemoglobin 30 pg (25-35) Mean Corpuscular Hemoglobin Concent 34 g/dL (31-37) Red Cell Distribution Width 15.1 % (11.5-14.5) Platelet Count 254 x10^3/uL (140-400) Neutrophils (%) (Auto) 56 % (31-73) Lymphocytes (%) (Auto) 34 % (24-48) Monocytes (%) (Auto) 7 % (0-9) Eosinophils (%) (Auto) 3 % (0-3) Basophils (%) (Auto) 1 % (0-3) Neutrophils # (Auto) 4.5 x10^3uL (1.8-7.7) Lymphocytes # (Auto) 2.7 x10^3/uL (1.0-4.8) Monocytes # (Auto) 0.5 x10^3/uL (0.0-1.1) Eosinophils # (Auto) 0.3 x10^3/uL (0.0-0.7) Basophils # (Auto) 0.1 x10^3/uL (0.0-0.2) Platelet Estimate Adequate (ADEQUATE) Poikilocytosis Slight Anisocytosis Slight Microcytosis Slight Ovalocytes Occ Prothrombin Time 9.9 SEC (9.4-11.4) Prothromb Time International Ratio 1.0 (0.9-1.1) Activated Partial Thromboplast Time 25 SEC (23-33) Maternal Serum HCG Beta Subunit < 1 mIU/mL (0-6) Sodium Level 141 mmol/L (136-145) Potassium Level 3.8 mmol/L (3.5-5.1) Chloride Level 104 mmol/L (98-107) Carbon Dioxide Level 29 mmol/L (21-32) Anion Gap 8 (6-14) Blood Urea Nitrogen 9 mg/dL (7-20) Creatinine 0.9 mg/dL (0.6-1.0) Estimated GFR (Cockcroft-Gault) 69.0 Glucose Level 93 mg/dL (70-99) Calcium Level 9.4 mg/dL (8.5-10.1) Total Bilirubin 1.8 mg/dL (0.2-1.0) Direct Bilirubin 0.3 mg/dL (0.0-0.2) Aspartate Amino Transf (AST/SGOT) 29 U/L (15-37) Alanine Aminotransferase (ALT/SGPT) 49 U/L (14-59) Alkaline Phosphatase 79 U/L (46-116) Creatine Kinase 90 U/L (26-192) Troponin I Quantitative < 0.017 ng/mL (0-0.055) Total Protein 7.4 g/dL (6.4-8.2) Albumin 4.0 g/dL (3.4-5.0) Amylase Level 45 U/L (25-115) Lipase 98 U/L (73-393) Brief Hospital Course Ms. Aguilar is a 42 old female who presented with generalized abdomen pain. Discharge Information Condition at Discharge: Improved, Stable Disposition/Orders: D/C to Home Dischare Medications Current Medications Lactated Ringer's 1,000 ml @ 1,000 mls/hr Q1H IV Last administered on 09/25/18at 21:15; Admin Dose 1,000 MLS/HR; Start 09/25/18 at 20:41; Stop 09/25/18 at 21:40; Status DC Ondansetron HCl (Zofran) 8 mg 1X ONCE IV Last administered on 09/25/18at 21:15; Admin Dose 8 MG; Start 09/25/18 at 20:45; Stop 09/25/18 at 20:47; Status DC Famotidine (Pepcid Vial) 20 mg 1X ONCE IVP Last administered on 09/25/18at 21:15; Admin Dose 20 MG; Start 09/25/18 at 20:45; Stop 09/25/18 at 20:47; Status DC Magnesium Hydroxide (Milk Of Magnesia) 2,400 mg 1X ONCE PO Last administered on 09/25/18at 21:58; Admin Dose 2,400 MG; Start 09/25/18 at 22:00; Stop 09/25/18 at 22:01; Status DC Trimethoprim/ Sulfamethoxazole (Bactrim Ds) 1 tab 1X ONCE PO Last administered on 09/25/18at 21:58; Admin Dose 1 TAB; Start 09/25/18 at 22:00; Stop 09/25/18 at 22:01; Status DC Trimethoprim/ Sulfamethoxazole (Bactrim Ds) 1 tab STK-MED ONCE PO ; Start 09/25/18 at 21:54; Stop 09/25/18 at 21:55; Status DC Magnesium Hydroxide (Milk Of Magnesia) 2,400 mg STK-MED ONCE .ROUTE ; Start 09/25/18 at 21:54; Stop 09/25/18 at 21:55; Status DC Ketorolac Tromethamine (Toradol 30mg Vial) 30 mg 1X ONCE IV Last administered on 09/25/18at 22:27; Admin Dose 30 MG; Start 09/25/18 at 22:15; Stop 09/25/18 at 22:16; Status DC Active Scripts Active Bactrim Ds Tablet (Sulfamethoxazole/Trimethoprim) 1 Each Tablet 1 Tab PO BID Simethicone 80 Mg Tab.chew 80 Mg PO PRN AFTMEALHC PRN Reported Levothyroxine Sodium 137 Mcg Tablet 1 Tab PO DAILY06 Dragon Disclaimer This chart was dictated in whole or in part using Voice Recognition software in a busy, high-work load, and often noisy Emergency Department environment. It may contain unintended and wholly unrecognized errors or omissions. TOI THOMAS MD Sep 25, 2018 20:41
[2018-09-25] MEDS ORDERED: FAMOTIDINE 20 MG/2 ML VIAL IVP ONE (20:45)
[2018-09-25] MEDS ORDERED: ONDANSETRON PF 4 MG/2 ML VIAL. IV ONE (20:45)
[2018-09-25 21:20] LABS: BASO # 0.1 x10^3/uL (0.0-0.2); BASO % 1 % (0-3); EOS # 0.3 x10^3/uL (0.0-0.7); EOS % 3 % (0-3); HEMATOCRIT 44.9 % (36.0-47.0); HEMOGLOBIN 15.3 g/dL (12.0-15.5); LYMPH # 2.7 x10^3/uL (1.0-4.8); LYMPH % 34 % (24-48); MEAN CORPUSCULAR HEMOGLOBIN 30 pg (25-35); MEAN CORPUSCULAR HGB CONC 34 g/dL (31-37); MEAN CORPUSCULAR VOLUME 87 fL (79-100); MONO # 0.5 x10^3/uL (0.0-1.1); MONO % 7 % (0-9); NEUT # 4.5 x10^3uL (1.8-7.7); NEUT % 56 % (31-73); PLATELET COUNT 254 x10^3/uL (140-400); RED BLOOD COUNT 5.16 x10^6/uL (3.50-5.40); RED CELL DISTRIBUTION WIDTH 15.1 % (11.5-14.5); WHITE BLOOD COUNT 8.1 x10^3/uL (4.0-11.0)
[2018-09-25 21:24] LABS: AMPHETAMINE/METHAMPHETAMINE NEG (NEG); BARBITURATES NEG (NEG); BENZODIAZEPINES NEG (NEG); CANNABINOIDS NEG (NEG); COCAINE NEG (NEG); METHADONE NEG (NEG); OPIATES NEG (NEG); PHENCYCLIDINE NEG (NEG)
[2018-09-25 21:30] LABS: BACTERIA,URINE 0 /HPF (0-FEW); BILIRUBIN,URINE NEG (NEG); CLARITY,URINE HAZY; COLOR,URINE AMBER; GLUCOSE,URINE NEG (NEG); NITRITE,URINE NEG (NEG); RBC,URINE 0 /HPF (0-2); SQUAMOUS EPITHELIAL CELL,UR OCC /LPF; UROBILINOGEN,URINE 1 mg/dL (0.2 mg/dL)
[2018-09-25 21:35] LABS: CALCIUM 9.4 mg/dL (8.5-10.1); CREATININE 0.9 mg/dL (0.6-1.0); DIRECT BILIRUBIN 0.3 mg/dL (0.0-0.2); POTASSIUM 3.8 mmol/L (3.5-5.1); TOTAL BILIRUBIN 1.8 mg/dL (0.2-1.0); TOTAL PROTEIN 7.4 g/dL (6.4-8.2)
[2018-09-25] MEDS ORDERED: MAGNESIUM HYDROXIDE 2,400 MG/30 ML ORAL.SUSP. ONE (21:54)
[2018-09-25] MEDS ORDERED: SMZ/TMP 800/160MG TABLET. PO ONE ×2 (21:54→22:00)
[2018-09-25 21:57] LABS: ANISOCYTOSIS SLIGHT; MICROCYTOSIS SLIGHT; OVALOCYTES OCC; PLT ESTIMATE ADEQUATE (ADEQUATE); POIKILOCYTOSIS SLIGHT
[2018-09-25] MEDS ORDERED: MAGNESIUM HYDROXIDE 2,400 MG/30 ML ORAL.SUSP. PO ONE (22:00)
[2018-09-25 22:12] VITALS: BP 145/92
[2018-09-25] MEDS ORDERED: KETOROLAC 30 MG/ML VIAL. IV ONE (22:15)
[2018-09-25] MEDS ORDERED: SULF1TAB24 PO (22:22)
--- NOTE | 2018-09-25 23:23 | RAD ---
Three-view acute abdominal series HISTORY: Chest and abdomen pain 3 views were taken for an acute abdominal series. Lungs are free of infiltrates. Heart is upper normal in size. There is no effusion. There is no free air on the upright view of the abdomen or abnormal air-fluid levels. The patient's had a cholecystectomy. There is slight scoliosis. There is no small bowel obstruction. There is mild gas in the colon. There are no abnormal calcifications. IMPRESSION: 1. No acute infiltrates. 2. No bowel obstruction or acute finding noted in the abdomen. Electronically signed by: Taiwo Read MD (09/25/2018 11:20 PM) [facility]
== END 2018-09-25 22:33 | disposition home or self-care (01) ==
LOC: ER 20:38
DX: K59.00 Constipation, unspecified (principal); R11.2 Nausea with vomiting, unspecified; E03.9 Hypothyroidism, unspecified; Z86.2 Personal history of diseases of the blood and blood-forming organs and certain disorders involving the immune mechanism; Z90.49 Acquired absence of other specified parts of digestive tract; Z90.89 Acquired absence of other organs; Z98.51 Tubal ligation status; Z88.0 Allergy status to penicillin; Z88.1 Allergy status to other antibiotic agents; Z79.899 Other long term (current) drug therapy
CPT/HCPCS: 36415; 74022; 80048; 80076; 80307; 81001; 82150; 82550; 83690; 84484; 84702; 85025; 85610; 85730; 87086; 93005; 96361; 96374; 96375; 99285; J1885; J2405; J3490; J7120

== ENCOUNTER 2018-10-10 16:22 | Emergency (ER) | payer OTHER ==
[~2018-10-10] VITALS: Ht 157.5 cm; Wt 111.6 kg
[~2018-10-10 16:22] MED LIST changes: +SULF1TAB24 PO
[2018-10-10 16:42] VITALS: BP 170/105
[2018-10-10] MEDS ORDERED: IV NORMAL SALINE 1,000ML 1,000 ML IV SCH (17:11)
--- NOTE | 2018-10-10 17:17 | PHYS DOC ---
Past History Past Medical History: Anemia, Hypothyroid Past Surgical History: Appendectomy, Cholecystectomy, , Tubal ligation Smoking: Non-smoker Alcohol Use: None Drug Use: None Adult General Chief Complaint Chief Complaint: FLANK PAIN HPI HPI Patient is a 42-year-old female presents with left-sided abdominal pain for the past 2 weeks, worse for the past 5 days. Some nausea, no vomiting. Nothing seems to make the symptoms better or worse. Patient does report eating nuts and a banana nut bread. Denies any blood in the stool. She was given milk of magnesia when she was seen approximately 2 weeks ago due to constipation issues. She has not followed up with her regular doctor since that time. Reports the pain is moderate to severe.[] Review of Systems Review of Systems Constitutional: Denies fever or chills [] Eyes: Denies change in visual acuity, redness, or eye pain [] HENT: Denies nasal congestion or sore throat [] Respiratory: Denies cough or shortness of breath [] Cardiovascular: No chest pain or palpitations[] GI: See history of present illness[] : Denies dysuria or hematuria [] Musculoskeletal: Denies back pain or joint pain [] Integument: Denies rash or skin lesions [] Neurologic: Denies headache, focal weakness or sensory changes [] Endocrine: Denies polyuria or polydipsia [] All other systems were reviewed and found to be within normal limits, except as documented in this note. Allergies Allergies Allergies Coded Allergies Type Severity Reaction Last Updated Verified Penicillins Allergy Intermediate 04/01/18 Yes clindamycin Allergy Intermediate 04/01/18 Yes Physical Exam Physical Exam Constitutional: Well developed, well nourished, no acute distress, non-toxic miguel earance. [] HENT: Normocephalic, atraumatic, bilateral external ears normal, oropharynx moist, no oral exudates, nose normal. [] Eyes: PERRLA, EOMI, conjunctiva normal, no discharge. [] Neck: Normal range of motion, no tenderness, supple, no stridor. [] Cardiovascular:Heart rate regular rhythm, no murmur [] Lungs & Thorax: Bilateral breath sounds clear to auscultation [] Abdomen: Bowel sounds normal, soft, left-sided tenderness, no rebound, no guarding, no rigidity, no masses, no pulsatile masses. [] Skin: Warm, dry, no erythema, no rash. [] Back: No tenderness, no CVA tenderness. [] Extremities: No tenderness, no cyanosis, no clubbing, ROM intact, no edema. [] Neurologic: Alert and oriented X 3, normal motor function, normal sensory function, no focal deficits noted. [] Psychologic: Affect normal, judgement normal, mood normal. [] Current Patient Data Vital Signs Vital Signs Date Time Temp Pulse Resp B/P (MAP) Pulse Ox O2 Delivery O2 Flow Rate FiO2 10/10/18 16:42 98.7 63 20 96 Room Air EKG EKG [] Radiology/Procedures Radiology/Procedures PROCEDURE: CT ABDOMEN PELVIS WO CONTRAST INDICATION: abdomen pain COMPARISON: March 2018 TECHNIQUE: Axial CT images obtained through the abdomen and pelvis without contrast. Limited assessment of solid organ structures and vasculature secondary to lack of intravenous contrast.. One or more of the following individualized dose reduction techniques were utilized for this examination: 1. Automated exposure control; 2. Adjustment of the mA and/or kV according to patient size; 3. Use of iterative reconstruction technique. FINDINGS: Abdominal aorta is not aneurysmal. Fat-containing structure in the left gluteal region measuring up to about 59 x 30 mm, could be lipoma. Suspected small fat-containing inguinal hernias. Low-density lesion left lobe the liver, may be cystic in nature. Postcholecystectomy changes. No peripancreatic fluid collection. Limited evaluation of pancreas without contrast. Spleen prominent in size. No hydronephrosis. Minimal urine within the bladder with mildly prominent wall. Fullness left adnexa again seen. There are some scattered prominent lymph nodes in the right side of the abdomen. Small fat-containing umbilical hernia. IMPRESSION: 1. No evidence of bowel obstruction. 2. Repeat demonstration of fullness of the left adnexa. 3. No definite radiopaque obstructive ureter stone.[] Course & Med Decision Making Course & Med Decision Making Pertinent Labs and Imaging studies reviewed. (See chart for details) ED course: Patient arrived, was placed in bed, and tolerated exam well. She received IV fluids along with pain medicine. She was transported to and from [place] with any complications. After return the lab and CT findings, these were discussed with the patient who voiced understanding. All questions were answered. She was discharged in improved condition. Medical decision making: There is no evidence of surgical pathology at this time. No evidence of kidney stone, no evidence of diverticulitis, no abscess, no significant electrolyte abnormality. No urinary tract infection.[] Dragon Disclaimer Dragon Disclaimer This electronic medical record was generated, in whole or in part, using a voice recognition dictation system. Departure Departure: Impression: Primary Impression: Abdominal pain Disposition: HOME, SELF-CARE Condition: IMPROVED Referrals: YSABEL POWERS MD (PCP) Follow-up in 2 days Patient Instructions: Abdominal Pain Additional Instructions: Drink plenty of fluids, frequent small sips. No fatty foods, no milk, and no pepper for the next 48 hours. For the next 48 hours eat a diet rich in carbohydrates with foods such as bananas, rice, applesauce, and toast. Follow-up with your regular doctor in 2 days. Return to the ER if worsening pain, blood in the stool, or any other concerns. Scripts Meloxicam (MELOXICAM) 7.5 Mg Tablet 7.5 MG PO DAILY for PAIN, #20 TAB Prov: ALEJANDRO MALDONADO DO 10/10/18 Hyoscyamine Sulfate (LEVSIN) 0.125 Mg Tablet 0.125 MG PO QID for abdominal pain/cramping, #30 TAB Prov: ALEJANDRO MALDONADO DO 10/10/18 Problem Qualifiers Primary Impression: Abdominal pain Abdominal location: left lower quadrant Qualified Codes: R10.32 - Left lower quadrant pain ALEJANDRO MALDONADO DO Oct 10, 2018 17:17
[2018-10-10 17:23] LABS: BASO % 1 % (0-3); EOS # 0.2 x10^3/uL (0.0-0.7); EOS % 3 % (0-3); HEMOGLOBIN 14.4 g/dL (12.0-15.5); LYMPH # 2.3 x10^3/uL (1.0-4.8); LYMPH % 41 % (24-48); MEAN CORPUSCULAR HEMOGLOBIN 31 pg (25-35); MEAN CORPUSCULAR HGB CONC 35 g/dL (31-37); MEAN CORPUSCULAR VOLUME 88 fL (79-100); MONO # 0.5 x10^3/uL (0.0-1.1); MONO % 8 % (0-9); NEUT # 2.7 x10^3uL (1.8-7.7); NEUT % 48 % (31-73); PLATELET COUNT 239 x10^3/uL (140-400); RED BLOOD COUNT 4.66 x10^6/uL (3.50-5.40); RED CELL DISTRIBUTION WIDTH 14.7 % (11.5-14.5); WHITE BLOOD COUNT 5.7 x10^3/uL (4.0-11.0)
[2018-10-10 17:25] LABS: BILIRUBIN,URINE NEG (NEG); CLARITY,URINE CLEAR; COLOR,URINE YELLOW; GLUCOSE,URINE NEG (NEG)
[2018-10-10 17:26] LABS: BACTERIA,URINE FEW /HPF (0-FEW); NITRITE,URINE NEG (NEG); PREG TEST PT QUAL NEGATIVE (NEG); SQUAMOUS EPITHELIAL CELL,UR OCC /LPF; UROBILINOGEN,URINE 0.2 mg/dL (0.2 mg/dL); WBC,URINE 0 /HPF (0-4)
[2018-10-10] MEDS ORDERED: HYOSCYAMINE 0.125 MG TAB.RAPDIS PO ONE (17:30)
[2018-10-10] MEDS ORDERED: PROCHLORPERAZINE 10 MG/2 ML VIAL. IV ONE (17:30)
[2018-10-10] MEDS ORDERED: KETOROLAC 30 MG/ML VIAL. IV ONE (17:30)
[2018-10-10 17:32] LABS: ALBUMIN 3.9 g/dL (3.4-5.0); ALBUMIN/GLOBULIN RATIO 1.1 (1.0-1.7); CALCIUM 8.8 mg/dL (8.5-10.1); CREATININE 0.9 mg/dL (0.6-1.0); TOTAL BILIRUBIN 1.8 mg/dL (0.2-1.0); TOTAL PROTEIN 7.5 g/dL (6.4-8.2)
--- NOTE | 2018-10-10 17:44 | RAD ---
INDICATION: abdomen pain COMPARISON: March 2018 TECHNIQUE: Axial CT images obtained through the abdomen and pelvis without contrast. Limited assessment of solid organ structures and vasculature secondary to lack of intravenous contrast.. One or more of the following individualized dose reduction techniques were utilized for this examination: 1. Automated exposure control; 2. Adjustment of the mA and/or kV according to patient size; 3. Use of iterative reconstruction technique. FINDINGS: Abdominal aorta is not aneurysmal. Fat-containing structure in the left gluteal region measuring up to about 59 x 30 mm, could be lipoma. Suspected small fat-containing inguinal hernias. Low-density lesion left lobe the liver, may be cystic in nature. Postcholecystectomy changes. No peripancreatic fluid collection. Limited evaluation of pancreas without contrast. Spleen prominent in size. No hydronephrosis. Minimal urine within the bladder with mildly prominent wall. Fullness left adnexa again seen. There are some scattered prominent lymph nodes in the right side of the abdomen. Small fat-containing umbilical hernia. IMPRESSION: 1. No evidence of bowel obstruction. 2. Repeat demonstration of fullness of the left adnexa. 3. No definite radiopaque obstructive ureter stone. Electronically signed by: Kyle Gamez MD (10/10/2018 5:41 PM) [facility]
[2018-10-10] MEDS ORDERED: HYOS0.1264 PO (18:20)
[2018-10-10] MEDS ORDERED: MELO7.5T29 PO (18:20)
== END 2018-10-10 18:30 | disposition home or self-care (01) ==
LOC: ER 16:44
DX: R10.32 Left lower quadrant pain (principal); E03.9 Hypothyroidism, unspecified; Z86.2 Personal history of diseases of the blood and blood-forming organs and certain disorders involving the immune mechanism; Z90.89 Acquired absence of other organs; Z90.49 Acquired absence of other specified parts of digestive tract; Z98.890 Other specified postprocedural states; Z98.51 Tubal ligation status; Z88.0 Allergy status to penicillin; Z88.1 Allergy status to other antibiotic agents
CPT/HCPCS: 36415; 74176; 80053; 81001; 83690; 84703; 85025; 96374; 96375; 99285; J0780; J1885; J7030

== ENCOUNTER 2019-01-04 12:22 | Observation (INO) | payer OTHER ==
[~2019-01-04] VITALS: Ht 157.5 cm; Wt 108.1 kg
[~2019-01-04 12:22] MED LIST changes: +HYOS0.1264 PO; +MELO7.5T29 PO
[2019-01-04] MEDS ORDERED: ASPIRIN 81 MG TAB.CHEW PO ONE ×2 (13:15→20:00)
[2019-01-04 13:16] LABS: BASO % 1 % (0-3); EOS # 0.1 x10^3/uL (0.0-0.7); EOS % 3 % (0-3); HEMATOCRIT 42.7 % (36.0-47.0); LYMPH # 1.2 x10^3/uL (1.0-4.8); LYMPH % 32 % (24-48); MEAN CORPUSCULAR HEMOGLOBIN 31 pg (25-35); MEAN CORPUSCULAR HGB CONC 35 g/dL (31-37); MEAN CORPUSCULAR VOLUME 89 fL (79-100); MONO # 0.4 x10^3/uL (0.0-1.1); MONO % 12 % (0-9); NEUT # 2.1 x10^3uL (1.8-7.7); NEUT % 53 % (31-73); PLATELET COUNT 157 x10^3/uL (140-400); RED BLOOD COUNT 4.83 x10^6/uL (3.50-5.40); RED CELL DISTRIBUTION WIDTH 13.5 % (11.5-14.5); WHITE BLOOD COUNT 3.9 x10^3/uL (4.0-11.0)
[2019-01-04 13:25] LABS: ALBUMIN 3.8 g/dL (3.4-5.0); CALCIUM 8.6 mg/dL (8.5-10.1); CREATININE 0.8 mg/dL (0.6-1.0); GFR 78.7; TOTAL PROTEIN 7.5 g/dL (6.4-8.2)
--- NOTE | 2019-01-04 13:26 | RAD ---
CHEST AP ONLY Clinical indications: Chest pain. COMPARISON: September 25, 2018. Findings: No acute lung infiltrate or pleural effusion or pulmonary edema or lung mass or pneumothorax is seen. The heart size, pulmonary vasculature, mediastinum and both may are stable. Impression: No acute radiographic abnormality is seen. Electronically signed by: Bin Hess MD (01/04/2019 1:24 PM) [facility]
[2019-01-04 13:37] LABS: TOTAL BILIRUBIN 3.1 mg/dL (0.2-1.0)
--- NOTE | 2019-01-04 15:06 | PHYS DOC ---
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 She does complain of knee pain when she stands up too long she has had intermittent abdominal discomfort and a long-standing basis nothing acute there are no fever currently not having any chest pain. Patient has an abnormal EKG from primary doctor's office and was sent here for evaluation I reviewed it that look like there were T-wave inversions laterally Review of Systems Review of Systems Constitutional: Denies fever or chills [] Eyes: Denies change in visual acuity, redness, or eye pain [] HENT: Denies nasal congestion or sore throat [] All other systems were reviewed and found to be within normal limits, except as documented in this note. Current Medications Current Medications Current Medications Medications (Trade) Dose Ordered Sig/Flip Start Time Stop Time Status Last Admin Dose Admin Aspirin (Children'S Aspirin) 324 mg 1X ONCE 01/04/19 13:15 01/04/19 13:16 DC Allergies Allergies Allergies Coded Allergies Type Severity Reaction Last Updated Verified Penicillins Allergy Intermediate 04/01/18 Yes clindamycin Allergy Intermediate 04/01/18 Yes Physical Exam Physical Exam Constitutional: Well developed, well nourished, no acute distress, non-toxic appearance. [] HENT: Normocephalic, atraumatic, bilateral external ears normal, oropharynx moist, no oral exudates, nose normal. [] Eyes: PERRLA, EOMI, conjunctiva normal, no discharge. [] Neck: Normal range of motion, no tenderness, supple, no stridor. [] Cardiovascular:Heart rate regular rhythm, no murmur [] Lungs & Thorax: Bilateral breath sounds clear to auscultation [] Abdomen: Bowel sounds normal, soft, no tenderness, no masses, no pulsatile masses. [] Skin: Warm, dry, no erythema, no rash. [] Back: No tenderness, no CVA tenderness. [] Extremities: No tenderness, no cyanosis, no clubbing, ROM intact, no edema. [] Neurologic: Alert and oriented X 3, normal motor function, normal sensory function, no focal deficits noted. [] Psychologic: Affect normal, judgement normal, mood normal. [] Current Patient Data Vital Signs Vital Signs Date Time Temp Pulse Resp B/P (MAP) Pulse Ox O2 Delivery O2 Flow Rate FiO2 01/04/19 12:36 98.0 71 18 96 Room Air Lab Results Laboratory Tests Test 01/04/19 12:52 White Blood Count 3.9 x10^3/uL (4.0-11.0) L Red Blood Count 4.83 x10^6/uL (3.50-5.40) Hemoglobin 15.0 g/dL (12.0-15.5) Hematocrit 42.7 % (36.0-47.0) Mean Corpuscular Volume 89 fL (79-100) Mean Corpuscular Hemoglobin 31 pg (25-35) Mean Corpuscular Hemoglobin Concent 35 g/dL (31-37) Red Cell Distribution Width 13.5 % (11.5-14.5) Platelet Count 157 x10^3/uL (140-400) Neutrophils (%) (Auto) 53 % (31-73) Lymphocytes (%) (Auto) 32 % (24-48) Monocytes (%) (Auto) 12 % (0-9) H Eosinophils (%) (Auto) 3 % (0-3) Basophils (%) (Auto) 1 % (0-3) Neutrophils # (Auto) 2.1 x10^3uL (1.8-7.7) Lymphocytes # (Auto) 1.2 x10^3/uL (1.0-4.8) Monocytes # (Auto) 0.4 x10^3/uL (0.0-1.1) Eosinophils # (Auto) 0.1 x10^3/uL (0.0-0.7) Basophils # (Auto) 0.0 x10^3/uL (0.0-0.2) Platelet Estimate Pending Maternal Serum HCG Beta Subunit < 1 mIU/mL (0-6) Sodium Level 138 mmol/L (136-145) Potassium Level 4.0 mmol/L (3.5-5.1) Chloride Level 103 mmol/L (98-107) Carbon Dioxide Level 26 mmol/L (21-32) Anion Gap 9 (6-14) Blood Urea Nitrogen 10 mg/dL (7-20) Creatinine 0.8 mg/dL (0.6-1.0) Estimated GFR (Cockcroft-Gault) 78.7 BUN/Creatinine Ratio 13 (6-20) Glucose Level 87 mg/dL (70-99) Calcium Level 8.6 mg/dL (8.5-10.1) Total Bilirubin 3.1 mg/dL (0.2-1.0) H Aspartate Amino Transferase (AST) 62 U/L (15-37) H Alanine Aminotransferase (ALT) 67 U/L (14-59) H Alkaline Phosphatase 67 U/L (46-116) Troponin I Quantitative < 0.017 ng/mL (0-0.055) Total Protein 7.5 g/dL (6.4-8.2) Albumin 3.8 g/dL (3.4-5.0) Albumin/Globulin Ratio 1.0 (1.0-1.7) EKG EKG []I reviewed the EKG from the outside clinic it did look like there were T-wave inversions noted on that EKG in V4 through V6. EKG done here did show normal sinus rhythm with rate of 67 there are nonspecific changes laterally some borderline ST depression in V4 and V5 but no definite ischemia QTC was 462 Radiology/Procedures Radiology/Procedures [] "head fogginess" and fatigue for three days. Distress * None Temperature (Fahrenheit): * 98.0 degrees F (97.6-99.5) Patient Temperature * 98.0 degrees F (97.5-99.5) Temperature Source * Oral Pulse Rate * 71 beats per minute (60-90) Respiratory Rate * 18 breaths per minute (12-24) Oxygen Delivery Method * Room Air Bedside Pulse Oximetry * 96 % Treatment Prior to Arrival * No Complaint of Pain * No LOC * Alert Coma Scale Eye Opening * 4-Spontaneous Coma Scale Motor * 6-Obeys Commands Coma Scale Verbal * 5-Oriented [place] Coma Scale Total Impressions: COMPARISON: September 25, 2018. Findings: No acute lung infiltrate or pleural effusion or pulmonary edema or lung mass or pneumothorax is seen. The heart size, pulmonary vasculature, mediastinum and both may are stable. Impression: No acute radiographic abnormality is seen. Electronically signed by: Shaheen Hess MD (01/04/2019 1:24 PM) [place] [id number] DICTATED AND SIGNED BY: SHAHEEN HESS MD DATE: 01/04/19 1324 CC: JOSE F POWERS MD; DANIELA ENRIQUE MD ~ Course & Med Decision Making Course & Med Decision Making Pertinent Labs and Imaging studies reviewed. (See chart for details) []PERC NEGATIVE. 43-year-old female presenting with some bilateral chest tightness intermittently for the last few days while exerting herself at work she is obese her EKG was not normal I don't have a clear old EKG for comparison. Does have a family history. Heart score is a H 2 E 1 A 0 R 1 T 0 =4, ADMIT D/W IGO FOR ADMIT FOR CHEST IDSCOMFORT. ASPIRIN GIVEN TROPO NEGATIVE IN ER, PT STABLE WHILE HERE. Dragon Disclaimer Dragon Disclaimer This electronic medical record was generated, in whole or in part, using a voice recognition dictation system. Departure Departure: Impression: Primary Impression: Chest pain Disposition: ADMITTED INPATIENT Admitting Physician: Jose F Powers Condition: STABLE Referrals: JOSE F POWERS MD (PCP) DANIELA ENRIQUE MD Jan 04, 2019 15:06
[2019-01-04 15:13] LABS: % BASOS 1 % (0-3); % EOS 5 % (0-5); % LYMPHS 25 % (24-48); % MONOS 13 % (0-10); % SEGS 56 % (35-66); PLT ESTIMATE ADEQUATE (ADEQUATE)
[2019-01-04 15:17] LABS: ANISOCYTOSIS SLIGHT; POIKILOCYTOSIS SLIGHT
[2019-01-04 15:20] LABS: OVALOCYTES OCC
--- NOTE | 2019-01-04 15:50 | PDOC2 ---
CONSULT Date of Admission DATE: 01/04/19 TIME: 15:49 Reason for Consult: Chest pain Referring Physician: Dr. Glasgow Chief Complaint CP Source: Chart review, Patient Problem List Problems Medical Problems: (1) Chest pain Status: Acute History of Present Illness 43 y/o female without any previous cardiac history presented with 2-3 day history of retrosternal chest pressure that starts 'under the ribs' and progresses to retrosternal area. Pain not related to exertion or food intake. She has baseline dyspnea on exertion but denied any orthopnea/PND, palpitations or syncope. She has family history of premature CAD. Past Medical History Anemia Hypothyroidism Past Surgical History Cholecystectomy, appendectomy, tubal ligation, Family History: Coronary Artery Disease Social History Denied any smoking, alcohol or drug use Current Medications Current Medications Aspirin (Children'S Aspirin) 324 mg 1X ONCE PO ; Start 01/04/19 at 13:15; Stop 01/04/19 at 13:16; Status DC Active Scripts Active Meloxicam 7.5 Mg Tablet 7.5 Mg PO DAILY Levsin (Hyoscyamine Sulfate) 0.125 Mg Tablet 0.125 Mg PO QID Bactrim Ds Tablet (Sulfamethoxazole/Trimethoprim) 1 Each Tablet 1 Tab PO BID Simethicone 80 Mg Tab.chew 80 Mg PO PRN AFTMEALHC PRN Reported Levothyroxine Sodium 137 Mcg Tablet 1 Tab PO DAILY06 Allergies: Coded Allergies: Penicillins (Verified Allergy, Intermediate, 04/01/18) clindamycin (Verified Allergy, Intermediate, 04/01/18) PSYCHOLOGICAL ROS: No: Hallucinations Eyes: No: Loss of vision HEENT: No: Epistaxis Respiratory: YES: Shortness of breath; No: Hemoptysis Cardiovascular: yes: Chest Pain Genitourinary: No: [place] Neurological: No: Seizures Skin: No: Rash General: Alert, Oriented X3 HEENT: Atraumatic Lungs: Clear to auscultation Heart: Regular rate Abdomen: Soft Extremities: No edema Psych/Mental Status: Mood NL VITALS Vital Signs Date Time Temp Pulse Resp B/P (MAP) Pulse Ox O2 Delivery O2 Flow Rate FiO2 01/04/19 12:36 98.0 71 18 96 Room Air Labs Laboratory Tests Test 01/04/19 12:52 White Blood Count 3.9 x10^3/uL (4.0-11.0) Red Blood Count 4.83 x10^6/uL (3.50-5.40) Hemoglobin 15.0 g/dL (12.0-15.5) Hematocrit 42.7 % (36.0-47.0) Mean Corpuscular Volume 89 fL (79-100) Mean Corpuscular Hemoglobin 31 pg (25-35) Mean Corpuscular Hemoglobin Concent 35 g/dL (31-37) Red Cell Distribution Width 13.5 % (11.5-14.5) Platelet Count 157 x10^3/uL (140-400) Neutrophils (%) (Auto) 53 % (31-73) Lymphocytes (%) (Auto) 32 % (24-48) Monocytes (%) (Auto) 12 % (0-9) Eosinophils (%) (Auto) 3 % (0-3) Basophils (%) (Auto) 1 % (0-3) Neutrophils # (Auto) 2.1 x10^3uL (1.8-7.7) Lymphocytes # (Auto) 1.2 x10^3/uL (1.0-4.8) Monocytes # (Auto) 0.4 x10^3/uL (0.0-1.1) Eosinophils # (Auto) 0.1 x10^3/uL (0.0-0.7) Basophils # (Auto) 0.0 x10^3/uL (0.0-0.2) Segmented Neutrophils % 56 % (35-66) Lymphocytes % 25 % (24-48) Monocytes % 13 % (0-10) Eosinophils % 5 % (0-5) Basophils % 1 % (0-3) Platelet Estimate Adequate (ADEQUATE) Large Platelets Few Giant Platelets Few Poikilocytosis Slight Anisocytosis Slight Ovalocytes Occ Maternal Serum HCG Beta Subunit < 1 mIU/mL (0-6) Sodium Level 138 mmol/L (136-145) Potassium Level 4.0 mmol/L (3.5-5.1) Chloride Level 103 mmol/L (98-107) Carbon Dioxide Level 26 mmol/L (21-32) Anion Gap 9 (6-14) Blood Urea Nitrogen 10 mg/dL (7-20) Creatinine 0.8 mg/dL (0.6-1.0) Estimated GFR (Cockcroft-Gault) 78.7 BUN/Creatinine Ratio 13 (6-20) Glucose Level 87 mg/dL (70-99) Calcium Level 8.6 mg/dL (8.5-10.1) Total Bilirubin 3.1 mg/dL (0.2-1.0) Aspartate Amino Transf (AST/SGOT) 62 U/L (15-37) Alanine Aminotransferase (ALT/SGPT) 67 U/L (14-59) Alkaline Phosphatase 67 U/L (46-116) Troponin I Quantitative < 0.017 ng/mL (0-0.055) Total Protein 7.5 g/dL (6.4-8.2) Albumin 3.8 g/dL (3.4-5.0) Albumin/Globulin Ratio 1.0 (1.0-1.7) Assessment/Plan 1. Chest pain with atypical features. EKG with SR and inferolateral T inversions. Monitor serial cardiac enzymes. We will plan for outpatient echo and stress test. 2. Hypothyroidism: on levothyroxine Thank you for your consultation CATHI TODD MD Jan 04, 2019 15:50
[2019-01-04 17:36] VITALS: BP 146/87
[2019-01-04] MEDS ORDERED: LEVO150T5 PO (18:30)
[2019-01-04] MEDS ORDERED: FERR325T14 PO (18:30)
[2019-01-04 19:33] VITALS: BP 130/82
[2019-01-04] MEDS: FERROUS SULFATE 325 MG TABLET. PO SCH (19:50)
[2019-01-04] MEDS ORDERED: LIDOCAINE (700MG/PATCH) PATCH. TD SCH (21:00)
[2019-01-04 22:21] VITALS: BP 122/86
[2019-01-05] MEDS ORDERED: LEVOTHYROXINE 150 MCG TABLET PO SCH (06:00)
[2019-01-05 06:10] VITALS: BP 148/88
[2019-01-05] MEDS: FERROUS SULFATE 325 MG TABLET. PO SCH (09:00)
[2019-01-05 10:44] VITALS: BP 128/80
[2019-01-05] MEDS ORDERED: LIDO700A21 TD (13:03)
--- NOTE | 2019-01-05 13:58 | DS ---
DATE OF DISCHARGE: HOSPITAL COURSE: A 43-year-old female in with chest pain, substernal chest pain, radiating to her back. The patient was admitted. Cardiac enzymes were negative. She was seen by Cardiology. She had elevated liver enzymes and complained of upper back pain, placed on a Lidoderm patch. She made good progress with that. She was cleared by Cardiology. She will follow up with Dr. Pereira as an outpatient. Otherwise, her labs are basically unremarkable in terms of cardiac enzymes. Sodium, potassium 138 and 4, BUN and creatinine 9 and 0.8. Her white count was 3.9, hemoglobin and hematocrit of 15 and 42, 12% monocytes, could be infectious. Her chest x-ray was unremarkable. So, the patient will be discharged home. IMPRESSION: Chest pain, leukopenia, elevated liver enzymes. PLAN: The patient will be discharged home. 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 YSABEL POWERS MD DR: THAO/karin JOB#: [id number] / [id number]
--- NOTE | 2019-01-05 22:31 | EKG ---
[address] [address] Test Date: 2019-01-04 Test Time: 12:40:02 Pat Name: SERINA CRAFT Department: Room: Gender: F Claims Representative: TASHA : 1975 Requested By: DANIELA ENRIQUE Order Number: [id number] Reading MD: Measurements Intervals [place]ane Rate: 67 P: 34 FL: 160 QRS: -11 QRSD: 90 T: 5 QT: 434 QTc: 462 Interpretive Statements SINUS RHYTHM LEFTWARD AXIS QRS(T) CONTOUR ABNORMALITY CONSIDER ANTEROLATERAL MYOCARDIAL DAMAGE POSSIBLY ABNORMAL ECG RI6.01 No previous ECG available for comparison
== END 2019-01-05 13:10 | disposition home or self-care (01) ==
LOC: ER 12:22 → INTOOBSV 16:58 → 1 SOUTH 16:58
PROVIDERS: ADMIT Family Medicine; ATTEND Family Medicine
DX: R07.2 Precordial pain (principal); E03.9 Hypothyroidism, unspecified; R79.89 Other specified abnormal findings of blood chemistry; D72.819 Decreased white blood cell count, unspecified; Z82.49 Family history of ischemic heart disease and other diseases of the circulatory system; Z90.49 Acquired absence of other specified parts of digestive tract; Z98.51 Tubal ligation status; Z88.0 Allergy status to penicillin; Z88.8 Allergy status to other drugs, medicaments and biological substances
CPT/HCPCS: 36415; 71045; 80053; 84484; 84702; 85007; 85025; 93005; 99284; G0378; G0379; 99285-25

== ENCOUNTER 2019-01-13 20:08 | Inpatient (IN) | payer OTHER ==
[~2019-01-13] VITALS: Ht 157.5 cm; Wt 109.8 kg
[~2019-01-13 20:08] MED LIST changes: +FERR325T14 PO; +LEVO150T5 PO; +LIDO700A21 TD
--- NOTE | 2019-01-13 20:37 | ED.ADGEN ---
Past History Past Medical History: Anemia, Hypothyroid Past Surgical History: Appendectomy, Cholecystectomy, , Tubal ligation Smoking: Non-smoker Alcohol Use: None Drug Use: None Adult General Chief Complaint Chief Complaint ".. I am sick.... I got fever and chills.. I hurt every where.. I ve got chest pain..... I am short of breath.. .. I just fell terrible...My stomach hurts so bad.... I seen Dr. Powers office today.. they said .. .I probably had a virus... "" HPI HPI Patient is a 43 year old female who presents with above hx and complaints multi ple organ symptoms. Pt. rates her chest pain as 10 /10. Pain is in the center and radiates to the right. Deep breaths make the pain worse. Nothing she does makes the pain better. The patient complaining of rapid heart rate. Patient complaining of frequent nonproductive cough. Patient complaining of wheezing. Patient does continue to smoke. Patient also complaining of severe epigastric pain and right upper quadrant pain. Patient denies any intake of bad food. Patient denies any travel or specific ill contacts. Patient denies any trauma. Patient denies any dark or tarry stools. Patient is complaining of nausea. Patient rates her abdomen pain is 10 out of 10. Patient states she is unable to take any foods as it makes her nauseated. Patient complaining of overall body pain, myalgia, arthralgia and malaise. Follows with [facility] Review of Systems Review of Systems Constitutional: Complaints of fever or chills [] Eyes: Denies change in visual acuity, redness, or eye pain [] HENT: Complains of nasal congestion and sore throat [] Respiratory: Complaints of cough and shortness of breath [] Cardiovascular: No additional information not addressed in HPI [] GI: Complaints of abdominal pain, nausea,. Denies Vomiting, bloody stools or diarrhea [] : Complaints of dysuria Musculoskeletal: Complaints of generalized body , low back pain and multiple joint pain []complaints of generalized fatigue Integument: Denies rash or skin lesions [] Neurologic: Denies headache, focal weakness or sensory changes [] Endocrine: Denies polyuria or polydipsia [] All other systems were reviewed and found to be within normal limits, except as documented in this note. Family History Family History Diabetes and hypertension Current Medications Current Medications Current Medications Medications (Trade) Dose Ordered Sig/Flip Start Time Stop Time Status Last Admin Dose Admin Albuterol Sulfate (Ventolin Hfa Inhaler) 2 puff 1X ONCE 01/13/19 21:30 01/13/19 21:31 DC 01/13/19 21:30 2 PUFF Ceftriaxone Sodium 1 gm/ Sodium Chloride 50 ml @ 100 mls/hr 1X ONCE 01/14/19 01:00 01/14/19 01:29 DC 01/14/19 01:10 100 MLS/HR Ceftriaxone Sodium (Rocephin) 1 gm STK-MED ONCE 01/14/19 01:08 01/14/19 01:08 DC Enoxaparin Sodium (Lovenox 100mg Syringe) 100 mg 1X ONCE 01/13/19 23:00 01/13/19 23:09 DC 01/13/19 23:52 100 MG Info (Do NOT chart on this entry -- for MONITORING) 1 each PRN DAILY PRN 01/13/19 23:45 01/15/19 23:44 Iohexol (Omnipaque 350 Mg/ml) 100 ml 1X ONCE 01/14/19 00:00 01/14/19 00:01 DC 01/14/19 00:08 100 ML Lactated Ringer's 1,000 ml @ 1,000 mls/hr Q1H 01/13/19 21:30 01/13/19 22:29 DC 01/13/19 21:30 1,000 MLS/HR Prednisone (Prednisone) 50 mg 1X ONCE 01/13/19 21:30 01/13/19 21:31 DC 01/13/19 21:30 50 MG Sodium Chloride 50 ml @ As Directed STK-MED ONCE 01/14/19 01:08 01/14/19 01:08 DC See nursing for home medications Allergies Allergies Allergies Coded Allergies Type Severity Reaction Last Updated Verified Penicillins Allergy Intermediate 04/01/18 Yes clindamycin Allergy Intermediate 04/01/18 Yes Physical Exam Physical Exam Constitutional: Patient complains of acute distress, patient does appear non- toxic . HENT: Normocephalic, atraumatic, bilateral external ears normal, oropharynx moist, mild pharyngeal injection and postnasal drainage, no oral exudates, nose mild swollen turbinates and clear rhinorrhea Eyes: PERRLA, EOMI, conjunctiva normal, no discharge. [] Neck: Normal range of motion, no tenderness, supple, no stridor. [] Cardiovascular: Tachycardia Heart rate regular rhythm, no murmur [] Lungs & Thorax: Bilateral breath sounds equal at apex with scattered wheezes on auscultation [] Abdomen: Bowel sounds normal, soft, complaints of generalized abdomen tenderness, no masses, no pulsatile masses. Obese. Multiple old surgery scars. Does have rebound to right upper quadrant. Skin: Warm, dry, no erythema, no rash. [] Back: No tenderness, no CVA tenderness. [] Extremities: No tenderness, no cyanosis, no clubbing, ROM intact, trace ankle edema. [] No cording appreciated Neurologic: Alert and oriented X 3, normal motor function, normal sensory function, no focal deficits noted. 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 History is at times somewhat difficult. Current Patient Data Vital Signs Vital Signs Date Time Temp Pulse Resp B/P (MAP) Pulse Ox O2 Delivery O2 Flow Rate FiO2 01/13/19 21:35 92 Room Air 01/13/19 21:14 102.4 111 18 Lab Results Laboratory Tests Test 01/13/19 20:58 01/13/19 21:09 01/13/19 21:15 01/13/19 21:42 Influenza Type A (Rapid) Negative (NEGATIVE) Influenza Type B (Rapid) Negative (NEGATIVE) Group A Streptococcus Rapid Negative (NEGATIVE) Urine Collection Type Unknown Urine Color Jailyn Urine Clarity Hazy Urine pH 6.0 Urine Specific [place] 1.020 Urine Protein 30 mg/dl (NEG-TRACE) Urine Glucose (UA) Neg mg/dL (NEG) Urine Ketones (Stick) Trace mg/dL (NEG) Urine Blood Neg (NEG) Urine Nitrite Pos (NEG) Urine Bilirubin Neg (NEG) Urine Urobilinogen Dipstick 2 mg/dL (0.2 mg/dL) Urine Leukocyte Esterase Neg (NEG) Urine RBC 0 /HPF (0-2) Urine WBC 1-4 /HPF (0-4) Urine Squamous Epithelial Cells Occ /LPF Urine Bacteria Few /HPF (0-FEW) Urine Mucus Slight /LPF Urine Opiates Screen Neg (NEG) Urine Methadone Screen Neg (NEG) Urine Barbiturates Neg (NEG) Urine Phencyclidine Screen Neg (NEG) Urine Amphetamine/Methamphetamine Neg (NEG) Urine Benzodiazepines Screen Neg (NEG) Urine Cocaine Screen Neg (NEG) Urine Cannabinoids Screen Neg (NEG) Urine Ethyl Alcohol Neg (NEG) POC Urine HCG, Qualitative hcg negative (Negative) White Blood Count 5.2 x10^3/uL (4.0-11.0) Red Blood Count 4.32 x10^6/uL (3.50-5.40) Hemoglobin 13.4 g/dL (12.0-15.5) Hematocrit 38.0 % (36.0-47.0) Mean Corpuscular Volume 88 fL (79-100) Mean Corpuscular Hemoglobin 31 pg (25-35) Mean Corpuscular Hemoglobin Concent 35 g/dL (31-37) Red Cell Distribution Width 14.5 % (11.5-14.5) Platelet Count 141 x10^3/uL (140-400) Neutrophils (%) (Auto) 47 % (31-73) Lymphocytes (%) (Auto) 44 % (24-48) Monocytes (%) (Auto) 8 % (0-9) Eosinophils (%) (Auto) 1 % (0-3) Basophils (%) (Auto) 1 % (0-3) Neutrophils # (Auto) 2.5 x10^3uL (1.8-7.7) Lymphocytes # (Auto) 2.3 x10^3/uL (1.0-4.8) Monocytes # (Auto) 0.4 x10^3/uL (0.0-1.1) Eosinophils # (Auto) 0.0 x10^3/uL (0.0-0.7) Basophils # (Auto) 0.1 x10^3/uL (0.0-0.2) Segmented Neutrophils % 52 % (35-66) Band Neutrophils % 1 % (0-9) Lymphocytes % 31 % (24-48) Atypical Lymphocytes % (Manual) 7 % (0-0) H Monocytes % 6 % (0-10) Eosinophils % 2 % (0-5) Basophils % 1 % (0-3) Platelet Estimate Adequate (ADEQUATE) Large Platelets Occ Polychromasia Slight Anisocytosis Slight Prothrombin Time 10.5 SEC (9.4-11.4) Prothrombin Time INR 1.0 (0.9-1.1) Activated Partial Thromboplast Time 28 SEC (23-33) D-Dimer (Fatemeh) 2.81 mg/L (0.00-0.50) H Sodium Level 138 mmol/L (136-145) Potassium Level 4.3 mmol/L (3.5-5.1) Chloride Level 103 mmol/L (98-107) Carbon Dioxide Level 27 mmol/L (21-32) Anion Gap 8 (6-14) Blood Urea Nitrogen 11 mg/dL (7-20) Creatinine 1.0 mg/dL (0.6-1.0) Estimated GFR (Cockcroft-Gault) 60.8 Glucose Level 98 mg/dL (70-99) Calcium Level 8.3 mg/dL (8.5-10.1) L Magnesium Level 2.1 mg/dL (1.8-2.4) Total Bilirubin 2.8 mg/dL (0.2-1.0) H Direct Bilirubin 0.6 mg/dL (0.0-0.2) H Aspartate Amino Transferase (AST) 98 U/L (15-37) H Alanine Aminotransferase (ALT) 144 U/L (14-59) H Alkaline Phosphatase 114 U/L (46-116) Creatine Kinase 99 U/L (26-192) Troponin I Quantitative < 0.017 ng/mL (0-0.055) KX-Rjd-F-Type Natriuretic Peptide 48 pg/mL (0-124) Total Protein 7.4 g/dL (6.4-8.2) Albumin 3.9 g/dL (3.4-5.0) Lipase 147 U/L (73-393) EKG EKG My interpretation EKG shows a sinus tachycardia 102 bpm. There is nonspecific T- wave changes anterior septal leads. But no findings acute STEMI of contralateral changes[] Radiology/Procedures Radiology/Procedures [][address] [address] IMAGING REPORT Signed PATIENT: SERINA CRAFT ACCOUNT: [id number] : 1975 LOCATION: ER AGE: 43 SEX: F EXAM STATUS: REG ER ORD. PHYSICIAN: TOI THOMAS MD REASON: dyspnea , elevated D dimer, OMNI 350, 100ml PROCEDURE: CT ANGIOGRAPHY CHEST CTA Chest with contrast: Clinical History: Shortness of breath. Axial helical images of the chest were obtained after the administration of 100 cc of IV Isovue-370 and timed appropriately for a pulmonary arterial study. Conventional axial reconstruction was performed in addition to coronal, sagittal and bilateral oblique MIP (maximum intensity projection). This study was ordered to detect possible pulmonary embolism. There are no filling defects to suggest pulmonary embolism. The lungs and pleural margins are clear. There is no mediastinal or hilar lymphadenopathy. The thoracic aorta appears normal. The spleen is mildly enlarged. Impression: 1. No evidence of pulmonary embolism. 2. Mild splenomegaly. [facility] Compliance Statement: One or more of the following individualized dose reduction techniques were utilized for this examination: 1. Automated exposure control 2. Adjustment of the mA and/or kV according to patient size 3. Use of iterative reconstruction technique Electronically signed by: Marvin Yang III, MD (01/14/2019 12:36 AM) [facility]ITALPhynd Technologies, Inc[facility] [id number] DICTATED AND SIGNED BY: MARVIN YANG III, MD DATE: 01/14/19 0036 CC: YSABEL POWERS MD; TOI THOMAS MD ~ IMAGING REPORT Signed PATIENT: SERINA CRAFT ACCOUNT: [id number] : 1975 LOCATION: ER AGE: 43 SEX: F EXAM STATUS: PRE ER ORD. PHYSICIAN: TOI THOMAS MD REASON: cp, cough PROCEDURE: CHEST PA & LATERAL Exam: Chest 2 views INDICATION: Cough TECHNIQUE: Frontal and lateral views the chest Comparisons: 01/04/2019 FINDINGS: The cardiomediastinal silhouette and pulmonary vessels are within normal limits. The lung and pleural spaces are clear. IMPRESSION: No acute cardiopulmonary process. Electronically signed by: Demetrice Coulter MD (01/13/2019 10:39 PM) [id number] DICTATED AND SIGNED BY: DEMETRICE COULTER MD DATE: 01/13/19 2239 CC: YSABEL POWERS MD; TOI THOMAS MD ~ Course & Med Decision Making Course & Med Decision Making Pertinent Labs and Imaging studies reviewed. (See chart for details) Patient admitted to Dr. Powers for further evaluation and treatment. We will keep nothing by mouth at this time because of her persistent right upper quadrant pain and elevation in bilirubin both total and direct. Also elevation in AST and ALT. May be a candidate for evaluation of her right upper quadrant pain. Ultrasound of her legs pending at time of admission. [] Final Impression Final Impression 1. Dyspnea 2. Viral Syndrome 3. Chest Pain 4. Elevated D-dimer 2.81 5. Elevated LFT and Bili. T2.8, D 0.6, AST 98, Alt 144. [] 6. Urinary tract infection Dragon Disclaimer Dragon Disclaimer This electronic medical record was generated, in whole or in part, using a voice recognition dictation system. Dragon Disclaimer This chart was dictated in whole or in part using Voice Recognition software in a busy, high-work load, and often noisy Emergency Department environment. It may contain unintended and wholly unrecognized errors or omissions. TOI THOMAS MD Jan 13, 2019 20:37
[2019-01-13] MEDS ORDERED: ALBUTEROL SULFATE 8GM INHALER. INH ONE (21:30)
[2019-01-13] MEDS ORDERED: IV RINGERS SOLUTION,LACTATED 1,000 ML IV SCH (21:30)
[2019-01-13] MEDS ORDERED: predniSONE 10 MG TABLET PO ONE (21:30)
[2019-01-13 21:31] LABS: BARBITURATES NEG (NEG); BENZODIAZEPINES NEG (NEG); CANNABINOIDS NEG (NEG); COCAINE NEG (NEG); METHADONE NEG (NEG); OPIATES NEG (NEG); PHENCYCLIDINE NEG (NEG)
--- NOTE | 2019-01-13 21:32 | EKG ---
[address] [address] Test Date: 2019-01-13 Test Time: 21:25:43 Pat Name: SERINA CRAFT Department: Room: Gender: F Component Prep Operator: : 1975 Requested By: TOI THOMAS Order Number: [id number] Reading MD: Dale Pereira MD Measurements Intervals [place] Rate: 102 P: 0 GA: 146 QRS: 27 QRSD: 86 T: -10 QT: 322 QTc: 424 Interpretive Statements SINUS TACHYCARDIA NON-SPECIFIC ST/T CHANGES Electronically Signed On 01-14-2019 12:47:42 CDT by Dale Pereira MD
[2019-01-13 21:42] LABS: INFLUENZA A PATIENT NEGATIVE (NEGATIVE); INFLUENZA B PATIENT NEGATIVE (NEGATIVE)
[2019-01-13 21:43] LABS: AMPHETAMINE/METHAMPHETAMINE NEG (NEG)
[2019-01-13 21:52] LABS: BACTERIA,URINE FEW /HPF (0-FEW); BILIRUBIN,URINE NEG (NEG); CLARITY,URINE HAZY; COLOR,URINE AMBER; GLUCOSE,URINE NEG (NEG); NITRITE,URINE POS (NEG); RBC,URINE 0 /HPF (0-2); SQUAMOUS EPITHELIAL CELL,UR OCC /LPF; UROBILINOGEN,URINE 2 mg/dL (0.2 mg/dL)
[2019-01-13 22:14] LABS: BASO # 0.1 x10^3/uL (0.0-0.2); BASO % 1 % (0-3); EOS % 1 % (0-3); HEMOGLOBIN 13.4 g/dL (12.0-15.5); LYMPH # 2.3 x10^3/uL (1.0-4.8); LYMPH % 44 % (24-48); MEAN CORPUSCULAR HEMOGLOBIN 31 pg (25-35); MEAN CORPUSCULAR HGB CONC 35 g/dL (31-37); MEAN CORPUSCULAR VOLUME 88 fL (79-100); MONO # 0.4 x10^3/uL (0.0-1.1); MONO % 8 % (0-9); NEUT # 2.5 x10^3uL (1.8-7.7); NEUT % 47 % (31-73); PLATELET COUNT 141 x10^3/uL (140-400); RED BLOOD COUNT 4.32 x10^6/uL (3.50-5.40); RED CELL DISTRIBUTION WIDTH 14.5 % (11.5-14.5); WHITE BLOOD COUNT 5.2 x10^3/uL (4.0-11.0)
--- NOTE | 2019-01-13 22:42 | RAD ---
Exam: Chest 2 views INDICATION: Cough TECHNIQUE: Frontal and lateral views the chest Comparisons: 01/04/2019 FINDINGS: The cardiomediastinal silhouette and pulmonary vessels are within normal limits. The lung and pleural spaces are clear. IMPRESSION: No acute cardiopulmonary process. Electronically signed by: Demetrice Francisco MD (01/13/2019 10:39 PM) [facility]
[2019-01-13 22:46] LABS: ALBUMIN 3.9 g/dL (3.4-5.0); CALCIUM 8.3 mg/dL (8.5-10.1); DIRECT BILIRUBIN 0.6 mg/dL (0.0-0.2); GFR 60.8; MAGNESIUM 2.1 mg/dL (1.8-2.4); POTASSIUM 4.3 mmol/L (3.5-5.1); TOTAL BILIRUBIN 2.8 mg/dL (0.2-1.0); TOTAL PROTEIN 7.4 g/dL (6.4-8.2)
[2019-01-13] MEDS ORDERED: ENOXAPARIN ** NOTE DOSE ** SYRINGE SQ ONE (23:00)
[2019-01-13] MEDS ORDERED: CONTRAST GIVEN MC PRN (23:45)
[2019-01-13 23:51] LABS: % BANDS 1 % (0-9); % BASOS 1 % (0-3); % EOS 2 % (0-5); % LYMPHS 31 % (24-48); % SEGS 52 % (35-66)
[2019-01-13 23:52] LABS: % ATYL 7 % (0-0); % MONOS 6 % (0-10)
[2019-01-13 23:54] LABS: ANISOCYTOSIS SLIGHT; PLT ESTIMATE ADEQUATE (ADEQUATE); POLYCHROMASIA SLIGHT
[2019-01-14] MEDS ORDERED: IOHEXOL 350 MG/ML 100 ML VIAL. IV ONE
--- NOTE | 2019-01-14 00:39 | RAD ---
CTA Chest with contrast: Clinical History: Shortness of breath. Axial helical images of the chest were obtained after the administration of 100 cc of IV Isovue-370 and timed appropriately for a pulmonary arterial study. Conventional axial reconstruction was performed in addition to coronal, sagittal and bilateral oblique MIP (maximum intensity projection). This study was ordered to detect possible pulmonary embolism. There are no filling defects to suggest pulmonary embolism. The lungs and pleural margins are clear. There is no mediastinal or hilar lymphadenopathy. The thoracic aorta appears normal. The spleen is mildly enlarged. Impression: 1. No evidence of pulmonary embolism. 2. Mild splenomegaly. [facility] Compliance Statement: One or more of the following individualized dose reduction techniques were utilized for this examination: 1. Automated exposure control 2. Adjustment of the mA and/or kV according to patient size 3. Use of iterative reconstruction technique Electronically signed by: Kuldeep Henry III, MD (01/14/2019 12:36 AM) [facility]
[2019-01-14] MEDS ORDERED: cefTRIAXone SODIUM 1 GM VIAL ONE (01:08)
[2019-01-14] MEDS ORDERED: IV NORMAL SALINE 50ML 50 ML ONE (01:08)
[2019-01-14] MEDS ORDERED: ONDANSETRON PF 4 MG/2 ML VIAL. IV PRN (01:30)
[2019-01-14] MEDS ORDERED: ANTI-COAG MONITOR BY PHARMACY. MC PRN (01:45)
--- NOTE | 2019-01-14 02:05 | NUR ---
Pt was admitted to floor in room 103 at 0205 this am. Pt arrived to unit via EMS. Pt is alert and oriented. pt vitals were taken and pt heart monitor was applied. pts belongings were documented pt had no c/o pain or nausea. will continue to monitor
[2019-01-14 02:34] VITALS: BP 94/64
[2019-01-14] MEDS ORDERED: IPRATRPIUM/ALBUTEROL 0.5/2.5MG 3 ML NEBU. ONE (05:15)
[2019-01-14] MEDS: IPRATRPIUM/ALBUTEROL 0.5/2.5MG 3 ML NEBU. NEB SCH ×4 (05:20→22:06)
[2019-01-14] MEDS: levoFLOXacin 500 MG TABLET PO SCH (05:48)
[2019-01-14 06:14] VITALS: BP 121/80
--- NOTE | 2019-01-14 07:34 | PDOC2 ---
MASTER MORENO MULTIMEDIA EDUCATIONAL SPECIALIST 01/14/19 0734: CARDIAC CONSULT DATE OF CONSULT Date Of Consult DATE: 01/14/19 TIME: 07:34 REASON FOR CONSULT Reason for Consult Chest pain REFERRING PHYSICIAN Referring Physician Dr. Woodall SOURCE Source: Chart review, Patient HPI History of Present Illness This is a 43 yo female who presented with multiple complaints including persistent cough, bilateral low side pain, shortness of breath, wheezing, and chest pain associated with persistent coughing. Patient has not been feeling well for the last week. Cough has been persistent. Has had fevers. Over the last couple of days, developed sharp pain in her central chest associated with coughing. No dizziness, diaphoresis, or nausea/vomiting. C/o [place] this morning and is hungry. Was seen by our service 01/04/19 for retrosternal chest pressure that starts 'under the ribs' and progresses to retrosternal area. AMI was ruled out. Outpatient echo and MPI was recommended. PAST MEDICAL HISTORY Heme/Onc: Anemia NOS Endocrine: Hypothyroidism PAST SURGICAL HISTORY Past Surgical History: Appendectomy, Cholecystectomy, Tubal Ligation FAMILY HISTORY Family History: Heart Disease, Hypertension SOCIAL HISTORY Smoke: No ALCOHOL: none Drugs: None Lives: with Family CURRENT MEDICATIONS Current Medications Current Medications Lactated Ringer's 1,000 ml @ 1,000 mls/hr Q1H IV Last administered on 01/13/19at 21:30; Start 01/13/19 at 21:30; Stop 01/13/19 at 22:29; Status DC Prednisone (Prednisone) 50 mg 1X ONCE PO Last administered on 01/13/19at 21:30; Start 01/13/19 at 21:30; Stop 01/13/19 at 21:31; Status DC Albuterol Sulfate (Ventolin Hfa Inhaler) 2 puff 1X ONCE INH Last administered on 01/13/19at 21:30; Start 01/13/19 at 21:30; Stop 01/13/19 at 21:31; Status DC Enoxaparin Sodium (Lovenox 100mg Syringe) 100 mg 1X ONCE SQ Last administered on 01/13/19at 23:52; Start 01/13/19 at 23:00; Stop 01/13/19 at 23:09; Status DC Iohexol (Omnipaque 350 Mg/ml) 100 ml 1X ONCE IV Last administered on 01/14/19at 00:08; Start 01/14/19 at 00:00; Stop 01/14/19 at 00:01; Status DC Info (Do NOT chart on this entry -- for MONITORING) 1 each PRN DAILY PRN MC SEE COMMENTS; Start 01/13/19 at 23:45; Stop 01/15/19 at 23:44 Ceftriaxone Sodium 1 gm/ Sodium Chloride 50 ml @ 100 mls/hr 1X ONCE IV Last administered on 01/14/19at 01:10; Start 01/14/19 at 01:00; Stop 01/14/19 at 01:29; Status DC Sodium Chloride 50 ml @ As Directed STK-MED ONCE .ROUTE ; Start 01/14/19 at 01:08; Stop 01/14/19 at 01:08; Status DC Ceftriaxone Sodium (Rocephin) 1 gm STK-MED ONCE .ROUTE ; Start 01/14/19 at 01:08; Stop 01/14/19 at 01:08; Status DC Ondansetron HCl (Zofran) 8 mg PRN Q4HRS PRN IV NAUSEA/VOMITING; Start 01/14/19 at 01:30; Stop 01/15/19 at 01:29 Acetaminophen (Tylenol) 650 mg PRN Q4HRS PRN PO FEVER; Start 01/14/19 at 01:30; Stop 01/15/19 at 01:29 Albuterol/ Ipratropium (Duoneb) 3 ml RTQID NEB Last administered on 01/14/19at 05:20; Start 01/14/19 at 08:00; Stop 01/15/19 at 07:59 Levofloxacin (Levaquin) 500 mg DAILY06 PO Last administered on 01/14/19at 05:48; Start 01/14/19 at 06:00 Enoxaparin Sodium (Lovenox 120mg Syringe) 110 mg Q12HR SQ ; Start 01/14/19 at 09:00 Aspirin (Children'S Aspirin) 81 mg DAILY PO ; Start 01/14/19 at 09:00 Info (Anti-Coagulation Monitoring By Pharmacy) 1 each PRN DAILY PRN MC SEE COMMENTS; Start 01/14/19 at 01:45 Albuterol/ Ipratropium (Duoneb) 3 ml STK-MED ONCE .ROUTE ; Start 01/14/19 at 05:15; Stop 01/14/19 at 05:15; Status DC Active Scripts Active Lidocaine PATCH (Lidocaine) 1 Each Adh..patch 2 Patch TD HS 30 Days Reported Ferrous Sulfate 325 Mg Tablet 1 Tab PO TID Levothyroxine Sodium 150 Mcg Tablet 1 Tab PO DAILY ALLERGIES Allergies: Coded Allergies: Penicillins (Verified Allergy, Intermediate, 04/01/18) clindamycin (Verified Allergy, Intermediate, 04/01/18) ROS Review of Systems 14 point ROS conducted with pertinent positives noted above in HPI. PHYSICAL EXAM General: Alert, Oriented X3, Cooperative, No acute distress HEENT: Atraumatic, Mucous membr. moist/pink Lungs: Other (diminished, faint expiratory wheezes ) Heart: Regular rate, Normal S1, Normal S2 Abdomen: Soft, No tenderness, Other (obese ) Extremities: No edema, Normal pulses Skin: No breakdown Neuro: Normal speech, Sensation intact Psych/Mental Status: Mental status NL, Mood NL MUSCULOSKELETAL: Osteoarthritic changes both hands VITALS Vital Signs Vital Signs Date Time Temp Pulse Resp B/P (MAP) Pulse Ox O2 Delivery O2 Flow Rate FiO2 01/14/19 06:14 99.0 78 20 121/80 (94) 99 Room Air LABS LABS Laboratory Tests Test 01/13/19 20:58 01/13/19 21:09 01/13/19 21:15 01/13/19 21:42 Influenza Type A (Rapid) Negative (NEGATIVE) Influenza Type B (Rapid) Negative (NEGATIVE) Group A Streptococcus Rapid Negative (NEGATIVE) Urine Collection Type Unknown Urine Color Jailyn Urine Clarity Hazy Urine pH 6.0 Urine Specific [place] 1.020 Urine Protein 30 mg/dl (NEG-TRACE) Urine Glucose (UA) Neg mg/dL (NEG) Urine Ketones (Stick) Trace mg/dL (NEG) Urine Blood Neg (NEG) Urine Nitrite Pos (NEG) Urine Bilirubin Neg (NEG) Urine Urobilinogen Dipstick 2 mg/dL (0.2 mg/dL) Urine Leukocyte Esterase Neg (NEG) Urine RBC 0 /HPF (0-2) Urine WBC 1-4 /HPF (0-4) Urine Squamous Epithelial Cells Occ /LPF Urine Bacteria Few /HPF (0-FEW) Urine Mucus Slight /LPF Urine Opiates Screen Neg (NEG) Urine Methadone Screen Neg (NEG) Urine Barbiturates Neg (NEG) Urine Phencyclidine Screen Neg (NEG) Urine Amphetamine/Methamphetamine Neg (NEG) Urine Benzodiazepines Screen Neg (NEG) Urine Cocaine Screen Neg (NEG) Urine Cannabinoids Screen Neg (NEG) Urine Ethyl Alcohol Neg (NEG) Bedside Urine HCG, Qualitative hcg negative (Negative) White Blood Count 5.2 x10^3/uL (4.0-11.0) Red Blood Count 4.32 x10^6/uL (3.50-5.40) Hemoglobin 13.4 g/dL (12.0-15.5) Hematocrit 38.0 % (36.0-47.0) Mean Corpuscular Volume 88 fL (79-100) Mean Corpuscular Hemoglobin 31 pg (25-35) Mean Corpuscular Hemoglobin Concent 35 g/dL (31-37) Red Cell Distribution Width 14.5 % (11.5-14.5) Platelet Count 141 x10^3/uL (140-400) Neutrophils (%) (Auto) 47 % (31-73) Lymphocytes (%) (Auto) 44 % (24-48) Monocytes (%) (Auto) 8 % (0-9) Eosinophils (%) (Auto) 1 % (0-3) Basophils (%) (Auto) 1 % (0-3) Neutrophils # (Auto) 2.5 x10^3uL (1.8-7.7) Lymphocytes # (Auto) 2.3 x10^3/uL (1.0-4.8) Monocytes # (Auto) 0.4 x10^3/uL (0.0-1.1) Eosinophils # (Auto) 0.0 x10^3/uL (0.0-0.7) Basophils # (Auto) 0.1 x10^3/uL (0.0-0.2) Segmented Neutrophils % 52 % (35-66) Band Neutrophils % 1 % (0-9) Lymphocytes % 31 % (24-48) Atypical Lymphocytes % (Manual) 7 % (0-0) Monocytes % 6 % (0-10) Eosinophils % 2 % (0-5) Basophils % 1 % (0-3) Platelet Estimate Adequate (ADEQUATE) Large Platelets Occ Polychromasia Slight Anisocytosis Slight Prothrombin Time 10.5 SEC (9.4-11.4) Prothromb Time International Ratio 1.0 (0.9-1.1) Activated Partial Thromboplast Time 28 SEC (23-33) D-Dimer (Fatemeh) 2.81 mg/L (0.00-0.50) Sodium Level 138 mmol/L (136-145) Potassium Level 4.3 mmol/L (3.5-5.1) Chloride Level 103 mmol/L (98-107) Carbon Dioxide Level 27 mmol/L (21-32) Anion Gap 8 (6-14) Blood Urea Nitrogen 11 mg/dL (7-20) Creatinine 1.0 mg/dL (0.6-1.0) Estimated GFR (Cockcroft-Gault) 60.8 Glucose Level 98 mg/dL (70-99) Calcium Level 8.3 mg/dL (8.5-10.1) Magnesium Level 2.1 mg/dL (1.8-2.4) Total Bilirubin 2.8 mg/dL (0.2-1.0) Direct Bilirubin 0.6 mg/dL (0.0-0.2) Aspartate Amino Transf (AST/SGOT) 98 U/L (15-37) Alanine Aminotransferase (ALT/SGPT) 144 U/L (14-59) Alkaline Phosphatase 114 U/L (46-116) Creatine Kinase 99 U/L (26-192) Troponin I Quantitative < 0.017 ng/mL (0-0.055) IA-Xaw-E-Type Natriuretic Peptide 48 pg/mL (0-124) Total Protein 7.4 g/dL (6.4-8.2) Albumin 3.9 g/dL (3.4-5.0) Lipase 147 U/L (73-393) ASSESSMENT/PLAN Assessment/Plan 1. Chest pain, atypical. Most probably pleuritic secondary to persistent cough 2. Fevers, probable acute viral illness. Influenza negative 3. Elevated liver enzymes 4. UTI 5. Elevated D-dimer; CTA negative for PE 6. Family h/o premature CAD Recommendations ASA Trend troponin Lipid panel Echo to assess LV systolic function given recurrent chest pain Will arrange for outpatient MPI REYES WILLS MD 01/14/19 0844: CARDIAC CONSULT ASSESSMENT/PLAN Assessment/Plan Pt.seen and examined. Agree with above ORTHOPEDIC BRACE MAKER note. 43 y.o w/o bronchitis and URI No need for URI. Echo wnl. Ok to DC from CV standpoint. Thanks MASTER MORENO APRN Jan 14, 2019 07:34 REYES WILLS MD Jan 14, 2019 22:50
[2019-01-14] MEDS: ACETAMINOPHEN 325 MG TABLET PO PRN ×2 (08:34→16:07)
[2019-01-14] MEDS: ASPIRIN 81 MG TAB.CHEW PO SCH (08:34)
[2019-01-14] MEDS: ENOXAPARIN ** NOTE DOSE ** SYRINGE SQ SCH ×2 (08:35→21:00)
[2019-01-14] MEDS: LEVOTHYROXINE 150 MCG TABLET PO SCH (09:23)
[2019-01-14] MEDS: FERROUS SULFATE 325 MG TABLET. PO SCH ×3 (09:23→21:30)
--- NOTE | 2019-01-14 09:59 | RAD ---
VENOUS LOWER EXT BILATERAL History: Dyspnea. Elevated d-dimer. Comparison: None. Discussion: Multiple longitudinal and transverse high resolution real-time images of the venous system of bilateral lower extremity were obtained with color and Doppler sampling. The common femoral, superficial femoral, popliteal and proximal calf veins are all patent and demonstrate normal flow and compressibility. Normal respiratory phasicity and augmentation is present. Impression: 1. No evidence of deep vein thrombosis within the bilateral lower extremities. Electronically signed by: Gregory Farias DO (01/14/2019 9:56 AM) [facility]
[2019-01-14 10:52] VITALS: BP 115/76
--- NOTE | 2019-01-14 11:58 | NUR ---
Pt is alert and oriented x 4. Pt is able to verbalize wants and needs. Pt is in bed resting, pt is continent of bowel and bladder, non-skid socks applied. Pt is on DVT protocol secondary due to elevated D-Dimer. Pt verbalizes major discomfort with enoxaparin injection. Educated pt on the benefits of blood thinners. Pt stated complaints of headache, gave tylenol per 's order. Pt also complained of not wanting to take medicines due to NPO diet. Verbalized pt's complaints to Dr. GAR diet implemented per 's orders. Bed is in lowest position, call light within reach, pt instructed to call for any assistance.
[2019-01-14] MEDS: BUTALB/APAP/CAFEIN 50/325/40MG TABLET. PO PRN ×2 (14:34→21:30)
[2019-01-14 14:35] VITALS: BP 110/67
--- NOTE | 2019-01-14 15:06 | CARD ---
MR#: [id number] Date of Study: 01/14/2019 Ordering Physician: MASTER MORENO, Referring Physician: MASTER MORENO, Tech: Yamile Grey APPROVED REPORT EXAM: Two-dimensional and M-mode echocardiogram with Doppler and color Doppler. Other Information Quality : AverageHR: 75bpm Technically limited study due to body habitus. INDICATION Chest Pain RISK FACTORS Smoking 2D DIMENSIONS RVDd3.2 (2.9-3.5cm)Left Atrium(2D)2.8 (1.6-4.0cm) IVSd0.9 (0.7-1.1cm)Aortic Root(2D)3.1 (2.0-3.7cm) LVDd4.6 (3.9-5.9cm)LVOT Diameter2.2 (1.8-2.4cm) PWd1.0 (0.7-1.1cm)LVDs3.1 (2.5-4.0cm) FS (%) 33.9 %SV62.4 ml LVEF(%)62.9 (>50%) Aortic Valve AoV Peak Isaias.126.9cm/sAoV VTI26.9cm AO Peak GR.6.4mmHgLVOT Peak Isaias.109.1cm/s LVOT VTI 22.62cmAO Mean GR.4mmHg BEE (VMAX)3.44bf0RBX (VTI)3.22cm2 Mitral Valve MV E Zkgfwgsv90.1cm/sMV DECEL LWPB925rr MV A Ykzanjiv82.3cm/sE/A Ratio1.3 Pulmonary Valve PV Peak Jxfdcxur84.2cm/sPV Peak Grad.4mmHg Tricuspid Valve TR P. Jhhqciqr878cm/sTR Peak Gr.28mmHg Pulmonary Vein S1 Jcuimuyw59.0cm/sD2 Rjabdwce47.4cm/s LEFT VENTRICLE The left ventricle is normal size. There is borderline concentric left ventricular hypertrophy. The l eft ventricular systolic function is normal. The Ejection Fraction is 55-60%. There is normal LV segm ental wall motion. The left ventricular diastolic function and filling is normal for age. RIGHT VENTRICLE The right ventricle is normal size. There is normal right ventricular wall thickness. The right ventr icular systolic function is normal. ATRIA The left atrium is borderline dilated. The right atrium is mildly dilated. The interatrial septum is intact with no evidence for an atrial septal defect or patent foramen ovale as noted on 2-D or Dopple r imaging. AORTIC VALVE The aortic valve is normal in structure and function. Doppler and Color Flow revealed no significant aortic regurgitation. There is no significant aortic valvular stenosis. MITRAL VALVE The mitral valve is normal in structure and function. There is no evidence of mitral valve prolapse. There is no mitral valve stenosis. Doppler and Color-flow revealed trace mitral regurgitation. TRICUSPID VALVE The tricuspid valve is normal in structure and function. Doppler and Color Flow revealed trace tricus pid regurgitation with an estimated PAP of 31 mmHg. There is no tricuspid valve stenosis. PULMONIC VALVE The pulmonic valve is not well visualized. Doppler and Color Flow revealed trace pulmonic valvular re gurgitation. GREAT VESSELS The aortic root is normal in size. The ascending aorta is borderline dilated. The IVC is normal in si ze and collapses >50% with inspiration. PERICARDIAL EFFUSION There is no evidence of significant pericardial effusion. Critical Notification Critical Value: No <Conclusion> The left ventricular systolic function is normal. The Ejection Fraction is 55-60%. There is normal LV segmental wall motion. Trace mitral regurgitation. Trace tricuspid regurgitation with an estimated PAP of 31 mmHg. There is no evidence of significant pericardial effusion. Signed by : Florian Massey, Electronically Approved : 01/14/2019 15:06:26
--- NOTE | 2019-01-14 15:13 | RAD ---
CT Abdomen and Pelvis without contrast History: Elevated liver function tests, left lower quadrant pain Technique: Noncontrast CT imaging was performed of the abdomen and pelvis. Multiplanar images are reviewed. Exposure: One or more of the following individualized dose reduction techniques were utilized for this examination: 1. Automated exposure control 2. Adjustment of the mA and/or kV according to patient size 3. Use of iterative reconstruction technique. Comparison: None Findings: There is no significant abnormality of the limited visualized lung bases. There is splenomegaly on the order of 16.3 x 7.2 x 15.2 cm. There is a hypodense lesion of the left lobe of the liver about 1 cm in size with measurements more cystlike 14 Hounsfield units. No acute focal obvious abnormality is identified of the pancreas. There is residual contrast in the renal collecting systems from chest CTA performed prior to this exam, no hydronephrosis of either kidney. There has been cholecystectomy. There is no significant adrenal nodularity. Accurate evaluation of bowel is limited without oral contrast. Bowel is not significantly dilated. There is no free fluid or free air. Urinary bladder is opacified with contrast. There is relative fullness of the left adnexal region comparing with the right otherwise difficult to characterize, focus of somewhat round density in this region about 1.3 cm with internal density measurements not of a simple cyst 39 Hounsfield units. There apparently has been appendectomy. Incidental note is made of retroaortic left renal vein. Impression: 1. There is nonspecific splenomegaly. 2. There is fullness of the left adnexal region with suspected underlying round small lesion which may be a complex or hemorrhagic cyst although otherwise difficult characterize by CT, better characterized by ultrasound if clinically needed. 3. There is probable cyst of the left lobe of the liver. Electronically signed by: Eliseo Thompson MD (01/14/2019 3:10 PM) [id number]
--- NOTE | 2019-01-14 20:22 | HP ---
ADMIT DATE: 01/14/2019 HISTORY OF PRESENT ILLNESS: A 43-year-old female came in through the Emergency Room with 3-4 day history of chest pain as well as elevated temperatures upwards of 103, according to the patient. She noted the chest pain was 10/10 and deep breaths made it worse and nothing seem to make it better. She was complaining of wheezing and tightness. The patient unfortunately does continue to smoke and she has been recommended numerous times to stop smoking. The patient had multiple other complaints including a severe headache. Otherwise, patient is complaining of some nausea and pain 10/10. The patient was seen initially in the Emergency Room and admitted to the hospital for further evaluation and treatment. PAST MEDICAL HISTORY: Difficulty with eyesight, pneumonias, cholecystectomy in May 2017, appendectomy, tubal ligation, , hypothyroidism, and anemia, chronic. IMMUNIZATIONS: Unknown status. FAMILY HISTORY: Mother with heart attack, hypertension, and asthma as well as coronary artery disease. ALLERGIES: PENICILLIN and CLINDAMYCIN. HOME MEDICATIONS: Include just ferrous sulfate, levothyroxine 150 mcg, and Lidoderm patches. SOCIAL HISTORY: She does smoke and has about a [id number] history of smoking, but encouraged to stop smoking. Denies alcohol, hard drug use, or chewing tobacco. The patient otherwise is a full code. REVIEW OF SYSTEMS: The patient has a chronic headache, migrainous, throbbing-like sensation with no visual changes. Some nausea, but no other symptoms. No peripheral weakness at all. The patient is neurologically stable there. Lungs are diminished. The patient has trouble breathing with coughing and wheezing noted. She also had a substernal chest pain, not made better or worse by anything in particular. The patient does have some nausea, but denies any problem with bowels or bladder. Neurologically, the patient was alert and baseline for her ____ with multiple complaints. PHYSICAL EXAMINATION: GENERAL: The patient on exam is a pleasant white female and morbidly obese. VITAL SIGNS: Blood pressure 120/80, temperature as high as 102.4, blood pressure as low as 94/64. The patient's pulse is 80, respiratory rate 20, and oxygen saturation good at 92%. HEENT: The patient's head was atraumatic and normocephalic. Eyes: PERRLA without jaundice. The mouth and throat were normal. NECK: Supple ____ thyromegaly. LUNGS: Diminished. Poor movement of air with expiratory wheezes noted in both the upper and lower lobes. CARDIOVASCULAR SYSTEM: Regular sinus rhythm. ABDOMEN: Soft, nontender, and no rebounding or guarding. Positive bowel sounds. No hepatosplenomegaly was noted. The patient did note later on that she did have some tenderness in her abdominal area. EXTREMITIES: No clubbing or cyanosis, nor edema. NEUROLOGIC: The patient was alert and oriented x 3, baseline for her complaining of her headache. IMPRESSION: Sepsis of unknown etiology. Abdominal discomfort with nausea. The patient negative for a DVT. CTA was negative for a PE and the patient did have a splenomegaly. She had a CT of her abdomen and pelvis because of the abdominal pain, did have nonspecific splenomegaly and fullness of the left adnexa, possibly complex hemorrhagic cyst, may need ultrasound there. So, the source of her infection is pending. Extremities, no clubbing or cyanosis, nor edema and so, we will go ahead and continue with her antibiotic therapy, make further evaluation, placed on Levaquin as well as Lovenox q.12h. and make further evaluation on her as indicated. YSABEL POWERS MD DR: THAO/karin JOB#: [id number] / [id number]
[2019-01-14 20:35] VITALS: BP 93/61
[2019-01-14] MEDS: LIDOCAINE (700MG/PATCH) PATCH. TD SCH (21:00)
[2019-01-14] MEDS: LACTOBACILLUS RHAMNOSUS GG 1 CAPSULE. PO SCH (21:29)
[2019-01-14 23:14] VITALS: BP 143/80
[2019-01-15] MEDS: BUTALB/APAP/CAFEIN 50/325/40MG TABLET. PO PRN ×3 (03:27→20:46)
[2019-01-15 05:52] VITALS: BP 130/74
[2019-01-15] MEDS: LEVOTHYROXINE 150 MCG TABLET PO SCH (06:08)
[2019-01-15] MEDS: levoFLOXacin 500 MG TABLET PO SCH (06:08)
[2019-01-15] MEDS: FERROUS SULFATE 325 MG TABLET. PO SCH ×3 (06:08→20:46)
[2019-01-15 06:55] LABS: BASO % 1 % (0-3); EOS # 0.1 x10^3/uL (0.0-0.7); EOS % 2 % (0-3); HEMATOCRIT 36.1 % (36.0-47.0); HEMOGLOBIN 12.4 g/dL (12.0-15.5); LYMPH % 39 % (24-48); MEAN CORPUSCULAR HEMOGLOBIN 31 pg (25-35); MEAN CORPUSCULAR HGB CONC 34 g/dL (31-37); MEAN CORPUSCULAR VOLUME 90 fL (79-100); MONO # 0.5 x10^3/uL (0.0-1.1); MONO % 9 % (0-9); NEUT # 2.6 x10^3uL (1.8-7.7); NEUT % 50 % (31-73); PLATELET COUNT 155 x10^3/uL (140-400); RED BLOOD COUNT 4.02 x10^6/uL (3.50-5.40); RED CELL DISTRIBUTION WIDTH 14.5 % (11.5-14.5); WHITE BLOOD COUNT 5.2 x10^3/uL (4.0-11.0)
[2019-01-15 06:58] LABS: CALCIUM 8.4 mg/dL (8.5-10.1); CREATININE 0.9 mg/dL (0.6-1.0); GFR 68.7; POTASSIUM 4.7 mmol/L (3.5-5.1)
[2019-01-15] MEDS: ASPIRIN 81 MG TAB.CHEW PO SCH (08:49)
[2019-01-15] MEDS: ENOXAPARIN ** NOTE DOSE ** SYRINGE SQ SCH ×2 (08:49→21:00)
[2019-01-15] MEDS: LACTOBACILLUS RHAMNOSUS GG 1 CAPSULE. PO SCH ×2 (08:49→20:46)
[2019-01-15] MEDS: IV NORMAL SALINE 1,000ML 1,000 ML IV SCH ×2 (10:50→18:00)
[2019-01-15] MEDS: ACETAMINOPHEN 500 MG TABLET PO PRN ×2 (11:08→17:42)
--- NOTE | 2019-01-15 11:14 | NUR ---
Pt is alert and oriented x 4. Pt able to verbalizes needs and desires. Bed is in lowest position, call light within reach. Pt is on DVT protocol per 's orders. Pt refused Lovenox injection this AM. Educated pt on the importance of the injection. 1100 Temp showed temperature of 102.5, notified Provider of elevated temp, stat Lactic Acid and blood cultures drawn and Acetaminophen administered per Dr's order. Started 1000 NS fluids at 125 mL/hr, 2ndary piggy of 1gram Rocephin started, currently flowing at 125 mL/hr. Will continue to assess and recheck pt's temperature. Pt instructed to call for any assistance or concerns.
[2019-01-15 11:19] VITALS: BP 138/72
[2019-01-15] MEDS: ONDANSETRON ODT 4 MG TAB.RAPDIS PO PRN ×2 (12:25→20:46)
--- NOTE | 2019-01-15 15:30 | RAD ---
CT HEAD WO CONTRAST History: Headaches. Comparison: None. Technique: Noncontrast CT imaging was performed of the head. Exposure: One or more of the following individualized dose reduction techniques were utilized for this examination: 1. Automated exposure control 2. Adjustment of the mA and/or kV according to patient size 3. Use of iterative reconstruction technique. Findings: No intracranial hemorrhage. No mass effect. No hydrocephalus. Extra-axial spaces are unremarkable. Imaged orbits are unremarkable. Imaged paranasal sinuses and mastoid air cells are clear. Impression: 1. No acute intracranial abnormality. Electronically signed by: Gregory Farias DO (01/15/2019 3:27 PM) [facility]
[2019-01-15 16:16] VITALS: BP 138/62
--- NOTE | 2019-01-15 18:47 | NUR ---
Pt temp at 1600 102.1. Gave Acetaminophen per Dr's order. Rechecked pt temp at 1830. Temp-99.3. Will continue to reassess.
[2019-01-15 19:56] VITALS: BP 123/84
[2019-01-15] MEDS: LIDOCAINE (700MG/PATCH) PATCH. TD SCH (20:48)
[2019-01-16] VITALS (7 sets, daily range): BP systolic 125–148; BP diastolic 76–98
[2019-01-16] MEDS: BUTALB/APAP/CAFEIN 50/325/40MG TABLET. PO PRN (01:09)
[2019-01-16] MEDS: IV NORMAL SALINE 1,000ML 1,000 ML IV SCH ×3 (02:00→20:32)
--- NOTE | 2019-01-16 04:14 | NUR ---
PT throughout night complaining of migraine. PT walking halls, conversing with staff, getting in and out of bed. PT complaining of nausea while at the same time asking for food. This occurred on multiple occasions. PT stating she was short of breath with LT shoulder pain. PT assessed and showing no signs of SOB. PT stating in pain throughout body when palpating any area on this assessment for shoulder pain. PT vital signs and telemetry reassessed at this time. All WNL. PT had been asking for IV pain medications throughout the night for her migraine and told she only had Fioricet with a max of 4 a day per MD order. PT upset that she did not have stronger medication and stated, "I have this in my arm so I should get medicine in my arm instead". PT advised she also has Tylenol. PT given antiemetic and Fioricet. PT declined Tylenol.
--- NOTE | 2019-01-16 05:01 | PN ---
DATE: SUBJECTIVE: A 43-year-old female in with sepsis. The patient's temperature has been spiking despite being on antibiotic. She is up to 102.3 with a pulse of 94, blood pressure 138/72, respiratory rate 20. The patient still has a wet cough, although her x-rays have been basically unremarkable. Procalcitonin did come up elevated showing high probability of some type of respiratory type of infection. OBJECTIVE: GENERAL: The patient otherwise is alert and oriented, not feeling very well. LUNGS: Diminished throughout, poor movement of air, some crackles noted. CARDIOVASCULAR: Regular sinus rhythm, S1, S2, without murmur, rub, thrill, or extra heart sound. ABDOMEN: Soft, nontender, no rebound or guarding. Positive bowel sounds. EXTREMITIES: No clubbing, cyanosis or edema. NEUROLOGIC: The patient is alert and oriented x 3. The patient otherwise seems to be resting fairly comfortably. LABORATORY DATA: The patient's labs really do not show much in terms of her white count, although she did have some atypical lymphocytes. The patient's electrolytes are basically normal, although lactate is normal, the patient's procalcitonin is elevated. We will continue to monitor her accordingly and continue on IV Levaquin and Rocephin and make further evaluation on her. IMPRESSION: Sepsis, probable respiratory. PLAN: As above. Continue to monitor patient currently, make further evaluation on her as indicated. YSABEL POWERS MD DR: THAO/karin JOB#: [id number] / [id number]
[2019-01-16] MEDS: ONDANSETRON ODT 4 MG TAB.RAPDIS PO PRN ×2 (05:18→23:58)
[2019-01-16] MEDS: LEVOTHYROXINE 150 MCG TABLET PO SCH (06:00)
[2019-01-16] MEDS: FERROUS SULFATE 325 MG TABLET. PO SCH ×3 (08:02→21:04)
[2019-01-16] MEDS: LACTOBACILLUS RHAMNOSUS GG 1 CAPSULE. PO SCH ×2 (08:02→21:04)
[2019-01-16] MEDS: ASPIRIN 81 MG TAB.CHEW PO SCH (08:02)
[2019-01-16] MEDS: ENOXAPARIN ** NOTE DOSE ** SYRINGE SQ SCH ×2 (08:13→21:00)
[2019-01-16] MEDS ORDERED: BISACODYL 10 MG SUPP.RECT PR PRN (11:15)
[2019-01-16] MEDS: ACETAMINOPHEN 500 MG TABLET PO PRN ×2 (12:14→18:07)
[2019-01-16] MEDS ORDERED: BISACODYL TAB 5 MG TABLET.DR. PO PRN (12:15)
--- NOTE | 2019-01-16 15:05 | NUR ---
Pt alert and oriented x 4. Pt has complained of side hurting." Notified Dr. Villela of pt's complaints. Dr ordered Stool softener PO, gave medicine per Dr's orders. Pt has complained of nausea. Gave antiemetic per Dr's orders. Pt has had multiple complaints of pain. Educated patient on schedule of medicine. Will continue to assess. Bed is in lowest position, call light within reach. Pt asks frequently about labs, educated pt about labs and about medicines. Pt upset because she did not receive her levothryoxine pill this AM. Explained to pt that we would give it tomorrow AM as scheduled. Call light within reach. Pt instructed to call for any assistance.
[2019-01-16] MEDS: LIDOCAINE (700MG/PATCH) PATCH. TD SCH (21:00)
[2019-01-16] MEDS ORDERED: METHYL SALICYLATE/MENTHOL TOPICAL OINTMENT 57GM TUBE. TP PRN (21:30)
--- NOTE | 2019-01-17 01:38 | PN ---
DATE: SUBJECTIVE: This is a 43-year-old female in with sepsis, fever. The patient is still spiking temperatures up to 100.5, pulse is down in the 80s. The patient is complaining of severe left rib, left-sided flank pain. The patient otherwise seems to be doing a little bit better. Urine cultures, no growth was noted. She is still on IV Rocephin and Levaquin because of her elevated temperatures and originally had some low blood pressures and tachycardia. In any case, the patient seems to be making fairly good progress overall and seems to be a little bit more active. The patient is having some constipation. OBJECTIVE: VITAL SIGNS: Blood pressure 143/81, respiration 24, afebrile. GENERAL: The patient is alert and oriented. LUNGS: Otherwise, her lungs are clear. CARDIOVASCULAR: Regular sinus rhythm. ABDOMEN: Protuberant, soft, tender along the left flank area as well as into the left ribs. EXTREMITIES: No clubbing, cyanosis or edema. NEUROLOGIC: The patient was alert and oriented. Numerous questions were answered for the patient and we will give her a suppository and increase her Tylenol to 2 every 6 hours as needed for discomfort or temperature. Otherwise, we will continue to monitor the patient and accordingly make further evaluation on her as indicated. IMPRESSION: Sepsis, unknown etiology, left flank pain. YSABEL POWERS MD DR: THAO/karin JOB#: [id number] / [id number]
[2019-01-17 05:06] VITALS: BP 155/93
[2019-01-17] MEDS: IV NORMAL SALINE 1,000ML 1,000 ML IV SCH ×2 (05:34→10:00)
[2019-01-17] MEDS: LEVOTHYROXINE 150 MCG TABLET PO SCH (06:00)
--- NOTE | 2019-01-17 07:57 | NUR ---
NURSING NOTE UPON ASSESSMENT, PT C/O MENSTRUATION CRAMPING, NAUSEA, CANT KEEP ANYTHING DOWN, CONSTIPATION, STATES HER LEFT SIDE STILL HURTS, STATES PEOPLE ARE SICK AT HER WORK AND THINKS SHE HAS WHAT THEY HAD. PT STATES THE ER DOCTOR TOLD HER HER LABS WERE OUT OF RANGE AND SHE HAS BEEN GETTING THE INJECTIONS IN HER STOMACH FOR THAT. STATES THEY TOLD HER THAT HER LUNGS WERE WHEEZING AND SHE KEEPS SPIKING TEMPERATURES AND SHE DOESNT KNOW WHY. PT STATES I NEED YOU TO CALL MY DOCTOR, MY CRAMPS ARE HURTING ME AND I STILL CANT EAT" PT ALSO STATES SHE DOES NOT WANT THE SHOT IN HER STOMACH AND REFUSING HER MORNING MEDICATIONS. INSTRUCTED PT THAT DR POWERS WILL BE IN THIS MORNING TO SEE HER. WILL CONTINUE TO MONITOR. MINI BARDALES.
[2019-01-17] MEDS: FERROUS SULFATE 325 MG TABLET. PO SCH (08:05)
[2019-01-17] MEDS: ASPIRIN 81 MG TAB.CHEW PO SCH (08:05)
[2019-01-17] MEDS: LACTOBACILLUS RHAMNOSUS GG 1 CAPSULE. PO SCH (08:05)
[2019-01-17] MEDS: ENOXAPARIN ** NOTE DOSE ** SYRINGE SQ SCH (08:05)
[2019-01-17] MEDS: ONDANSETRON ODT 4 MG TAB.RAPDIS PO PRN (09:11)
[2019-01-17 10:25] VITALS: BP 148/96
--- NOTE | 2019-01-17 11:48 | NUR ---
NURSING NOTE DISCHARGE PT TRANSFERRED TO [facility] VIA EMS AT 1145 FOR GI CONSULT. UPON EMS ARRIVAL, PT WAS SITTING ON THE FLOOR DRY HEAVING AND BLOWING HER NOSE. PT THEN STARTED HAVING A NOSE BLEED. PT GIVEN TISSUE TO HOLD ON HER NOSE. PT HELPED UP OFF THE FLOOR AND AMBULATED TO THE [facility]. PT NOSE BLEEDING HAS SLOWED. PT GIVEN ZOFRAN APPROX 1 HOUR AGO. PT GOING TO [facility] FOR GI CONSULT FOR NAUSEA. REPORT CALLED TO [facility]. COPY OF CHART SENT WITH EMS. MINI BARDALES.
--- NOTE | 2019-01-17 15:15 | DS ---
DATE OF DISCHARGE: 01/17/2019 HOSPITAL COURSE: A 43-year-old female came in with several problems including chest pain. The patient in turn was admitted. Cardiac enzymes were negative. She noted the pain was 10/10. She also had a temperature about 103 degrees. The patient was seen by Cardiology workup. Cardiac enzymes were negative; however, the patient did have a drop in her blood pressure down to 94/64 and she continues to run a temperature despite being on IV antibiotic therapy. The patient also had several scans performed including a CT abdomen and pelvis and outside of some nonspecific splenomegaly and fullness in the left adnexal region, the patient was unremarkable there. She did have possibly complex or hemorrhagic cyst of the left adnexal area. Otherwise ultrasound of the extremities was negative for clots. CTA was negative for pulmonary emboli and for that matter did not show any signs of infiltrative process. The patient continued on IV antibiotic therapy. She did have an elevated procalcitonin slightly 0.25. She has been continued on the IV antibiotic therapy, but has had severe abdominal pain primarily in the left side of her abdomen and left flank area, although her urine was negative. She still runs a low-grade temperature of anywhere from 100.5 to 99.5, pulse in the upper 80s, respiratory rate 20, blood pressure 155/93. Otherwise, the patient is alert and oriented. PHYSICAL EXAMINATION: LUNGS: Diminished, but clear. CARDIOVASCULAR: Stable. ABDOMEN: The patient's abdomen is soft. There is definite tenderness in that left mid quadrant area and along the left flank slight guarding, but no rebounding, positive bowel sounds, had a BM yesterday that was noted. The CAT scan of her abdomen and pelvis did not show anything abnormal except for the adnexal fullness which may need to be worked up later on with a pelvic sonogram and [employer] consultation. The patient's hepatitis screen and influenza group B were all negative. Blood cultures were negative. The patient continues to be monitored carefully, although because of her continued abdominal pain, we are going to be transferring her down to [place] for GI consult and make further evaluation along with possibly ID for this temperature. IMPRESSION: Chest pain, unknown etiology, left flank and abdominal pain, unknown etiology, elevated temperature or fever of unknown etiology, left adnexal complex cyst, possible hemorrhagic versus something more ominous. PLAN: The patient will be discharged to [facility] for further evaluation and treatment by specialist not available at this facility. YSABEL POWERS MD DR: THAO/karin JOB#: [id number] / [id number]
--- NOTE | 2019-01-17 19:20 | DS ---
DATE OF DISCHARGE: 01/17/2019 HOSPITAL COURSE: She will be transferred down to [place]. The patient came in still elevated temperature running into a 99.5 although it has been as high as 102.5. Her white counts were basically unremarkable. She is still complaining of left-sided flank pain and abdominal pain. CAT scan was negative on the situation. However, the patient continues to have pain approximately 7-8/10 and with an elevated temperature. She was transferred down to [place] for GI consultation as well as possible Infectious Disease: Blood cultures, urine cultures have been negative. Source of her fever is unknown. The patient otherwise seems to be resting fairly comfortably, making fairly good progress, otherwise, but this pain is still 7-8/10 on that left flank area. Urine has been negative. We will transfer for consultation. IMPRESSION: Abdominal pain, left-sided abdominal pain, sepsis, she had an atypical lymphocytes as well as increased temperature and hypotension. She had a procalcitonin that was also elevated and a D-dimer. YSABEL POWERS MD DR: THAO/karin JOB#: [id number] / [id number]
== END 2019-01-17 11:45 | disposition short-term general hospital (02) | DRG 872 ==
LOC: ER 20:08 → 1 SOUTH 01-14 01:15
PROVIDERS: ADMIT Family Medicine; ATTEND Family Medicine
DX: A41.89 Other specified sepsis (principal); N39.0 Urinary tract infection, site not specified; B34.9 Viral infection, unspecified; E03.9 Hypothyroidism, unspecified; F17.200 Nicotine dependence, unspecified, uncomplicated; K59.00 Constipation, unspecified; Z88.0 Allergy status to penicillin; Z88.8 Allergy status to other drugs, medicaments and biological substances; Z90.49 Acquired absence of other specified parts of digestive tract; Z83.3 Family history of diabetes mellitus; Z82.49 Family history of ischemic heart disease and other diseases of the circulatory system; Z82.5 Family history of asthma and other chronic lower respiratory diseases
CPT/HCPCS: 36415; 70450; 71046; 71275; 74176; 80048; 80061; 80076; 80307; 81001; 81025; 82550; 83605; 83690; 83735; 83880; 84145; 84443; 84484; 85007; 85025; 85379; 85610; 85730; 86705; 86709; 86803; 87040; 87070; 87086; 87340; 87804; 87880; 93005; 93306; 93970; 94640; 96360; J0696; J1650; J1956; J7120; J7512; J7613; J7620; Q0162; Q9967; 99285-25; J7030

== ENCOUNTER → 2019-08-16 | Outpatient (CLI) | payer OTHER ==
--- NOTE | 2019-08-16 14:50 | RAD ---
EXAM: Pelvic sonogram. HISTORY: Menorrhagia. TECHNIQUE: Transvaginal sonographic imaging of the pelvis was performed. COMPARISON: None. FINDINGS: The uterus measures 11.6 x 5.4 x 5.2 cm. The endometrial stripe measures 8 mm in thickness. The left ovary is obscured due to bowel gas. The right ovary contains a 4.3 cm cyst. Evaluation of right ovarian blood flow is limited due to positioning. There is no pelvic free fluid. IMPRESSION: 1. 4.3 cm right ovarian cyst. The right ovary is not well seen due to location and the left ovary is obscured due to bowel gas. 2. No suspicious uterine or endometrial lesion. Electronically signed by: Rossana Aragon MD (08/16/2019 2:47 PM) [id number]
== END | disposition home or self-care (01) ==
LOC: US 13:22
PROVIDERS: ATTEND Nurse Practitioner Adult Health
DX: N83.201 Unspecified ovarian cyst, right side (principal); N92.1 Excessive and frequent menstruation with irregular cycle
CPT/HCPCS: 76830

== ENCOUNTER 2019-09-11 20:35 | Emergency (ER) | payer OTHER ==
[~2019-09-11] VITALS: Ht 157.5 cm; Wt 110.6 kg
[2019-09-11] MEDS ORDERED: FAMOTIDINE 20 MG/2 ML VIAL IVP ONE (21:30)
[2019-09-11] MEDS ORDERED: IV NORMAL SALINE 1,000ML 1,000 ML IV ONE (21:30)
[2019-09-11] MEDS ORDERED: ONDANSETRON PF 4 MG/2 ML VIAL. IVP ONE (21:30)
[2019-09-11] MEDS ORDERED: KETOROLAC 15 MG/ML VIAL. IVP ONE (21:30)
[2019-09-11 21:31] LABS: BASO # 0.1 x10^3/uL (0.0-0.2); BASO % 1 % (0-3); CALCIUM 9.1 mg/dL (8.5-10.1); EOS # 0.1 x10^3/uL (0.0-0.7); EOS % 1 % (0-3); GFR 60.8; HEMOGLOBIN 14.6 g/dL (12.0-15.5); LYMPH # 1.5 x10^3/uL (1.0-4.8); LYMPH % 16 % (24-48); MEAN CORPUSCULAR HEMOGLOBIN 31 pg (25-35); MEAN CORPUSCULAR HGB CONC 35 g/dL (31-37); MEAN CORPUSCULAR VOLUME 89 fL (79-100); MONO # 0.4 x10^3/uL (0.0-1.1); MONO % 4 % (0-9); NEUT # 7.1 x10^3uL (1.8-7.7); NEUT % 78 % (31-73); PLATELET COUNT 240 x10^3/uL (140-400); POTASSIUM 3.7 mmol/L (3.5-5.1); RED BLOOD COUNT 4.71 x10^6/uL (3.50-5.40); RED CELL DISTRIBUTION WIDTH 13.5 % (11.5-14.5); WHITE BLOOD COUNT 9.1 x10^3/uL (4.0-11.0)
[2019-09-11 21:31] LABS: U PREG PATIENT NEGATIVE (NEG)
[2019-09-11 21:37] LABS: ALBUMIN/GLOBULIN RATIO 1.1 (1.0-1.7); TOTAL BILIRUBIN 1.7 mg/dL (0.2-1.0); TOTAL PROTEIN 7.8 g/dL (6.4-8.2)
--- NOTE | 2019-09-11 22:08 | RAD ---
Exam: CT abdomen and pelvis without contrast INDICATION: Abdominal pain, flank pain TECHNIQUE: Sequential axial images through the abdomen and pelvis obtained without IV contrast. Sagittal and coronal reformatted images were reconstructed from the axial data and reviewed. Comparisons: 10/10/2018 FINDINGS: Heart size is normal. No pericardial effusion. Visualized lung bases are clear. No pleural effusion. Evaluation of the solid organs is limited secondary to noncontrast technique. Liver, spleen, pancreas and adrenals are unremarkable. Gallbladder surgically absent. No perinephric inflammation or hydronephrosis. No renal or ureteral calculi are identified. Bladder is decompressed not well evaluated. Uterus is not enlarged. No abnormal adnexal mass. Large and small bowel are unremarkable. Appendix is not identified. No free intra-abdominal air or fluid. No obstruction. Abdominal aorta has a normal course and caliber. No enlarged abdominal lymph nodes are identified. No suspicious osseous lesions or acute fractures. IMPRESSION: No renal or ureteral calculi. No evidence for obstructive uropathy. Exposure: One or more of the following in the visualized dose reduction techniques were utilized for this examination: 1. Automated exposure control 2. Adjustment of the MA and/or KV according to patient size 3. Use of iterative of reconstructive technique Electronically signed by: Demetrice Francisco MD (09/11/2019 10:05 PM) [id number]
--- NOTE | 2019-09-11 22:19 | PHYS DOC ---
Past History Past Medical History: Anemia, Hypothyroid, UTI, Other Additional Past Medical Histor: BULGING DISCS, SCOLIOSIS, CARPAL TUNNEL Past Surgical History: Appendectomy, Cholecystectomy, , Tubal ligation Smoking: Non-smoker Alcohol Use: None Drug Use: None General Adult EDM: Chief Complaint: NAUSEA/VOMITING/DIARRHEA HPI: HPI: Patient is a [age] year old [sex] who presents with [] Review of Systems: Review of Systems: Constitutional: Denies fever or chills Eyes: Denies redness or eye pain HENT: Denies nasal congestion or sore throat Respiratory: Denies cough or shortness of breath Cardiovascular: Denies chest pain or palpitations GI: Denies abdominal pain, nausea, or vomiting : Denies dysuria or hematuria Musculoskeletal: Denies back pain or joint pain Integument: Denies rash or skin lesions Neurologic: Denies headache, focal weakness or sensory changes Complete systems were reviewed and found to be within normal limits, except as documented in this note. Current Medications: Current Meds: Current Medications Medications (Trade) Dose Ordered Sig/[facility] Start Time Stop Time Status Last Admin Dose Admin Famotidine (Pepcid Vial) 20 mg 1X ONCE 09/11/19 21:30 09/11/19 21:50 DC 09/11/19 22:07 20 MG Ketorolac Tromethamine (Toradol 15mg Vial) 15 mg 1X ONCE 09/11/19 21:30 09/11/19 21:50 DC 09/11/19 21:30 15 MG Ondansetron HCl (Zofran) 4 mg 1X ONCE 09/11/19 21:30 09/11/19 21:32 DC 09/11/19 21:30 4 MG Sodium Chloride 1,000 ml @ 1,000 mls/hr 1X ONCE 09/11/19 21:30 09/11/19 22:29 09/11/19 21:31 1,000 MLS/HR Allergies: Allergies: Allergies Coded Allergies Type Severity Reaction Last Updated Verified Penicillins Allergy Intermediate 04/01/18 Yes clindamycin Allergy Intermediate 04/01/18 Yes Physical Exam: PE: Constitutional: Well developed, well nourished, no acute distress, non-toxic appearance HENT: Normocephalic, atraumatic, oropharynx moist Eyes: PERRL, EOMI, conjunctiva normal, no discharge Neck: Normal range of motion, no tenderness, supple Cardiovascular: Heart rate normal, regular rhythm Lungs & Thorax: Bilateral breath sounds clear to auscultation, no wheezing Abdomen: Soft, no tenderness Skin: Warm, dry, no erythema, no rash Back: No tenderness, no CVA tenderness Extremities: No tenderness, ROM intact, no edema Neurologic: Alert and oriented X 3, normal motor function, normal sensory function, no focal deficits noted Psychologic: Affect normal, judgment normal Current Patient Data: Labs: Laboratory Tests Test 09/11/19 20:40 09/11/19 20:55 Urine Test Negative (NEG) White Blood Count 9.1 x10^3/uL (4.0-11.0) Red Blood Count 4.71 x10^6/uL (3.50-5.40) Hemoglobin 14.6 g/dL (12.0-15.5) Hematocrit 42.0 % (36.0-47.0) Mean Corpuscular Volume 89 fL (79-100) Mean Corpuscular Hemoglobin 31 pg (25-35) Mean Corpuscular Hemoglobin Concent 35 g/dL (31-37) Red Cell Distribution Width 13.5 % (11.5-14.5) Platelet Count 240 x10^3/uL (140-400) Neutrophils (%) (Auto) 78 % (31-73) H Lymphocytes (%) (Auto) 16 % (24-48) L Monocytes (%) (Auto) 4 % (0-9) Eosinophils (%) (Auto) 1 % (0-3) Basophils (%) (Auto) 1 % (0-3) Neutrophils # (Auto) 7.1 x10^3uL (1.8-7.7) Lymphocytes # (Auto) 1.5 x10^3/uL (1.0-4.8) Monocytes # (Auto) 0.4 x10^3/uL (0.0-1.1) Eosinophils # (Auto) 0.1 x10^3/uL (0.0-0.7) Basophils # (Auto) 0.1 x10^3/uL (0.0-0.2) Sodium Level 141 mmol/L (136-145) Potassium Level 3.7 mmol/L (3.5-5.1) Chloride Level 105 mmol/L (98-107) Carbon Dioxide Level 28 mmol/L (21-32) Anion Gap 8 (6-14) Blood Urea Nitrogen 10 mg/dL (7-20) Creatinine 1.0 mg/dL (0.6-1.0) Estimated GFR (Cockcroft-Gault) 60.8 BUN/Creatinine Ratio 10 (6-20) Glucose Level 115 mg/dL (70-99) H Calcium Level 9.1 mg/dL (8.5-10.1) Magnesium Level 1.9 mg/dL (1.8-2.4) Total Bilirubin 1.7 mg/dL (0.2-1.0) H Aspartate Amino Transferase (AST) 24 U/L (15-37) Alanine Aminotransferase (ALT) 34 U/L (14-59) Alkaline Phosphatase 61 U/L (46-116) Total Protein 7.8 g/dL (6.4-8.2) Albumin 4.0 g/dL (3.4-5.0) Albumin/Globulin Ratio 1.1 (1.0-1.7) Vital Signs: Vital Signs Date Time Temp Pulse Resp B/P (MAP) Pulse Ox O2 Delivery O2 Flow Rate FiO2 09/11/19 20:35 98.2 60 24 170/97 (121) 97 Room Air EKG: EKG: [] Radiology/Procedures: Radiology/Procedures: PROCEDURE: CT ABDOMEN PELVIS WO CONTRAST Exam: CT abdomen and pelvis without contrast INDICATION: Abdominal pain, flank pain TECHNIQUE: Sequential axial images through the abdomen and pelvis obtained without IV contrast. Sagittal and coronal reformatted images were reconstructed from the axial data and reviewed. Comparisons: 10/10/2018 FINDINGS: Heart size is normal. No pericardial effusion. Visualized lung bases are clear. No pleural effusion. Evaluation of the solid organs is limited secondary to noncontrast technique. Liver, spleen, pancreas and adrenals are unremarkable. Gallbladder surgically absent. No perinephric inflammation or hydronephrosis. No renal or ureteral calculi are identified. Bladder is decompressed not well evaluated. Uterus is not enlarged. No abnormal adnexal mass. Large and small bowel are unremarkable. Appendix is not identified. No free intra-abdominal air or fluid. No obstruction. Abdominal aorta has a normal course and caliber. No enlarged abdominal lymph nodes are identified. No suspicious osseous lesions or acute fractures. IMPRESSION: No renal or ureteral calculi. No evidence for obstructive uropathy. Exposure: One or more of the following in the visualized dose reduction techniques were utilized for this examination: 1. Automated exposure control 2. Adjustment of the MA and/or KV according to patient size 3. Use of iterative of reconstructive technique Electronically signed by: Demetrice Francisco MD (09/11/2019 10:05 PM) [id number] Course & Med Decision Making: Course & Med Decision Making Pertinent Labs and Imaging studies reviewed. (See chart for details) Patient stable for discharge with outpatient follow-up with PCP. Discussed findings and plan with patient, who acknowledges understanding and agreement. Dragon Disclaimer: Dragon Disclaimer: This electronic medical record was generated, in whole or in part, using a voice recognition dictation system. Departure Departure: Impression: Primary Impression: Abdominal pain Qualified Codes: R10.84 - Generalized abdominal pain Additional Impression: Nausea & vomiting Qualified Codes: R11.2 - Nausea with vomiting, unspecified Disposition: 01 HOME/RESIDENCE PRIOR TO ADM Condition: STABLE Referrals: YSABEL POWERS MD (PCP) SUNNY ROYAL MD Patient Instructions: Abdominal Pain, [id number], Clear Liquid Diet, [id number], Nausea and Vomiting, Pneg-pa-Gvit Scripts Hyoscyamine Sulfate (LEVSIN-SL) 0.125 Mg Tab.subl 0.125 MG SL Q4-6HRS PRN for PAIN, #14 TAB Prov: NIKKIE CAI DO 09/11/19 Famotidine (PEPCID) 20 Mg Tablet 1 TAB PO BID for Gastritis, #20 TAB Prov: NIKKIE CAI DO 09/11/19 Ondansetron (ONDANSETRON ODT) 4 Mg Tab.rapdis 1 TAB PO PRN Q6-8HRS PRN for NAUSEA, #16 TAB Prov: NIKKIE CAI DO 09/11/19 Justification of Admission: Justification of Admission: Justification of Admission Dx: N/A NIKKIE CAI DO Sep 11, 2019 22:19
[2019-09-11 22:59] LABS: BACTERIA,URINE 0 /HPF (0-FEW); BILIRUBIN,URINE NEG (NEG); CLARITY,URINE CLEAR; COLOR,URINE YELLOW; GLUCOSE,URINE NEG (NEG); NITRITE,URINE NEG (NEG); RBC,URINE OCC /HPF (0-2); SQUAMOUS EPITHELIAL CELL,UR MOD /LPF; UROBILINOGEN,URINE 0.2 mg/dL (0.2 mg/dL); WBC,URINE OCC /HPF (0-4)
[2019-09-11] MEDS ORDERED: HYOS0.1265 SL (23:12)
[2019-09-11] MEDS ORDERED: ONDA4TAB12 PO (23:12)
[2019-09-11] MEDS ORDERED: FAMO-63 PO (23:12)
[2019-09-11 23:27] VITALS: BP 150/82
== END 2019-09-11 23:55 | disposition home or self-care (01) ==
LOC: ER 20:35
DX: R10.84 Generalized abdominal pain (principal); R11.2 Nausea with vomiting, unspecified; E03.9 Hypothyroidism, unspecified; Z90.89 Acquired absence of other organs; Z90.49 Acquired absence of other specified parts of digestive tract; Z98.51 Tubal ligation status; Z87.440 Personal history of urinary (tract) infections; Z88.0 Allergy status to penicillin; Z88.1 Allergy status to other antibiotic agents
CPT/HCPCS: 36415; 74176; 80053; 81001; 81025; 83735; 85025; 96361; 96374; 96375; 99285; J1885; J2405; J3490; J7030

== ENCOUNTER → 2019-10-17 | Outpatient (CLI) | payer OTHER ==
[~2019-10-17] MED LIST changes: +FAMO-63 PO; +HYOS0.1265 SL; +ONDA4TAB12 PO
--- NOTE | 2019-10-17 15:22 | RAD ---
EXAM: Abdomen sonogram. HISTORY: Abnormal uterine bleeding. TECHNIQUE: Sonographic imaging of the pelvis was performed. COMPARISON: 08/16/2019. FINDINGS: The uterus measures 13.0 x 7.9 x 5.1 cm. The endometrial stripe measures 9 mm in thickness. The right ovary is obscured due to bowel gas. The left ovary is normal in size and demonstrates normal blood flow. The bladder is partially nondistended. There is no pelvic free fluid. IMPRESSION: 1. Normal endometrial thickness for the premenopausal status of patient. 2. Obscured right ovary due to bowel gas. The left ovary is unremarkable. Electronically signed by: Rossana Aragon MD (10/17/2019 3:19 PM) [id number]
== END | disposition home or self-care (01) ==
LOC: US 10:54
PROVIDERS: ATTEND Obstetrics & Gynecology
DX: N94.6 Dysmenorrhea, unspecified (principal); N92.0 Excessive and frequent menstruation with regular cycle; N93.9 Abnormal uterine and vaginal bleeding, unspecified
CPT/HCPCS: 76856

== ENCOUNTER 2020-01-21 18:52 | Emergency (ER) | payer OTHER ==
[~2020-01-21] VITALS: Ht 157.5 cm; Wt 110.9 kg
[2020-01-21] MEDS ORDERED: ONDANSETRON PF 4 MG/2 ML VIAL. IVP ONE (19:30)
--- NOTE | 2020-01-21 19:54 | PHYS DOC ---
Past History Past Medical History: Anemia, Hypothyroid, UTI, Other Additional Past Medical Histor: BULGING DISCS, SCOLIOSIS, CARPAL TUNNEL (DELMA GARCIA APRN) Past Surgical History: Appendectomy, Cholecystectomy, , Tubal ligation (DELMA GARICA APRN) Smoking: Non-smoker Alcohol Use: None Drug Use: None (DELMA GARCIA APRN) Adult General Chief Complaint Chief Complaint: FLANK PAIN HPI HPI Patient is a 44-year-old female with history of hypothyroidism presents to the emergency room for evaluation of left flank pain for greater than 2 weeks. She reports some nausea with no vomiting. She reports some mild left lower quadrant abdominal pain intermittently. Denies fevers. She states over 2 weeks ago had a urinary tract infection, took antibiotics provided by her primary care provider. She has had a repeat urine test and lab work today at her primary care provider's office. She reports she was told she had some protein in her urine but the remainder of the results would not be available for approximately 3 days. She denies any suprapubic pain. She reports started her menstrual cycle on Monday and this afternoon it became very heavy, she is changing her pad hourly. She reports has had very erratic menstrual cycles recently. 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 (DELMA GARCIA APRN) Review of Systems Review of Systems Constitutional: Denies fever or chills [] Eyes: Denies change in visual acuity, redness, or eye pain [] HENT: Denies nasal congestion or sore throat [] Respiratory: Denies cough or shortness of breath [] Cardiovascular: No additional information not addressed in HPI [] GI: Denies abdominal pain, nausea, vomiting, bloody stools or diarrhea [] : Denies dysuria or hematuria [] Musculoskeletal: Denies back pain or joint pain [] Integument: Denies rash or skin lesions [] Neurologic: Denies headache, focal weakness or sensory changes [] Endocrine: Denies polyuria or polydipsia [] All other systems were reviewed and found to be within normal limits, except as documented in this note. (DELMA GARCIA APRN) Current Medications Current Medications Current Medications Medications (Trade) Dose Ordered Sig/Flip Start Time Stop Time Status Last Admin Dose Admin Ondansetron HCl (Zofran) 4 mg 1X ONCE 11/3/20 19:30 01/21/20 19:31 DC (DELMA GARCIA APRN) Allergies Allergies Allergies Coded Allergies Type Severity Reaction Last Updated Verified Penicillins Allergy Intermediate 04/01/18 Yes clindamycin Allergy Intermediate 04/01/18 Yes (DELMA GARCIA APRN) Physical Exam Physical Exam Constitutional: Well developed, well nourished, no acute distress, non-toxic appearance. [] HENT: Normocephalic, atraumatic, bilateral external ears normal, oropharynx moist, no oral exudates, nose normal. [] Eyes: PERRLA, EOMI, conjunctiva normal, no discharge. [] Neck: Normal range of motion, no tenderness, supple, no stridor. [] Cardiovascular:Heart rate regular rhythm, no murmur [] Lungs & Thorax: Bilateral breath sounds clear to auscultation [] Abdomen: Bowel sounds normal, soft, mild LLQ tenderness with palpation, no masses, no pulsatile masses. [] Skin: Warm, dry, no erythema, no rash. [] Back: diffuse thoracic/flank tenderness bilaterally [] Extremities: No tenderness, no cyanosis, no clubbing, ROM intact, no edema. [] Neurologic: Alert and oriented X 3, normal motor function, normal sensory function, no focal deficits noted. [] Psychologic: Affect normal, judgement normal, mood normal. [] (DELMA GARCIA APRN) EKG EKG [] (DELMA GARCIA APRN) Radiology/Procedures Radiology/Procedures [] (DELMA GARCIA APRN) Radiology/[place] [address] IMAGING REPORT Signed PATIENT: SERINA CRAFT ACCOUNT: [id number] : 1975 LOCATION: ER AGE: 44 SEX: F EXAM STATUS: REG ER ORD. PHYSICIAN: TOI WOODALL MD REASON: Lt. flank pain PROCEDURE: CT ABDOMEN PELVIS WO CONTRAST EXAM: CT ABDOMEN/PELVIS WITHOUT CONTRAST. HISTORY: Left flank pain. TECHNIQUE: Computed tomography of the abdomen and pelvis was performed without intravenous contrast. One or more of the following individualized dose reduction techniques were utilized for this examination: 1. Automated exposure control. 2. Adjustment of the mA and/or kV according to patient size. 3. Use of iterative reconstruction technique. COMPARISON: 09/11/2019. FINDINGS: Lung windows through the visualized portions of the bases reveal mild atelectasis. Bone windows reveal no suspicious lesions. An intramuscular lipoma in the left gluteus medius measures 7.0 x 2.2 cm. The appendix is surgically absent. The uterine fibroid along the left aspect of the fundus measures 3.0 cm. Another exophytic fibroid more superiorly measures 1.7 cm. The left ovary is lobulated and superiorly placed in the false pelvis. There is no clear interval change. There is no small bowel obstruction. A cyst in the left hepatic lobe measures 11 mm. The gallbladder is surgically absent. The pancreas, spleen and adrenal glands are unremarkable. Note is made of a left retroaortic left renal vein. There are no suspicious renal lesions without contrast. There are no renal or ureteral calculi. IMPRESSION: 1. No renal or ureteral calculi. 2. Lobulation of the left ovary, superiorly placed in the false pelvis. Pelvic sonography could exclude underlying lesions if this is of concern for left symptoms. 3. Uterine fibroids measure up to 3.0 cm. Electronically signed by: Paul Pyle MD (01/22/2020 3:09 AM) [facility] DICTATED AND SIGNED BY: ELVIS PYLE MD DATE: 01/22/20 0309 CC: YSABEL POWERS MD; TOI WOODALL MD ~ (TOI WOODALL MD) Heart Score Risk Factors: Risk Factors: DM, Current or recent (<one month) smoker, HTN, HLP, family history of CAD, obesity. Risk Scores: Risk Factors: DM, Current or recent (<one month) smoker, HTN, HLP, family history of CAD, obesity. (DELMA GARCIA APRN) Course & Med Decision Making Course & Med Decision Making Pertinent Labs and Imaging studies reviewed. (See chart for details) [2156 shift change report, discussed with Dr. Woodall, waiting for CBC results, lab redraw, for final disposition decision.] (DELMA GARCIA APRN) Course & Med Decision Making Impression: 1. Abdomen Pain-history of chronic exacerbations ( Suspect Adhesions,GERD, Ovarian Cyst, Uterine fibromas , consider colitis etc.) 2 Dysfunction Uterine Bleeding 3. Ovarian cysts Pt. keep follow up with Dr. Gonzalez, Dr. Powers and consider consult with GI for colon scopic evaluation. (TOI WOODALL MD) Dragon Disclaimer Dragon Disclaimer This electronic medical record was generated, in whole or in part, using a voice recognition dictation system. (DELMA GARCIA APRN) Departure Departure: Referrals: YSABEL POWERS MD (PCP) Scripts Hydrocodone/Ibuprofen (HYDROCODONE-IBUPROFEN 7.5-200 ) 1 Each Tablet 1 TAB PO PRN Q6HRS PRN for PAIN, #30 TAB 0 Refills Prov: TOI WOODALL MD 01/22/20 Dragon Disclaimer This chart was dictated in whole or in part using Voice Recognition software in a busy, high-work load, and often noisy Emergency Department environment. It may contain unintended and wholly unrecognized errors or omissions. (TOI WOODALL MD) Attending Co-Sign Attending Co-Sign The patient was seen and interviewed as well as examined at the bedside. The chart was reviewed. The case was discussed. Agree with the plan of care. (TOI WOODALL MD) Attending Co-Sign Attending Co-Sign The patient was seen and interviewed as well as examined at the bedside. The chart was reviewed. The case was discussed. Agree with the plan of care. (TOI WOODALL MD) DELMA GARCIA APRN Jan 21, 2020 19:54 TOI WOODALL MD Jan 22, 2020 03:48
[2020-01-21 20:02] LABS: U PREG PATIENT NEGATIVE (NEG)
[2020-01-21 20:08] LABS: BILIRUBIN,URINE NEG (NEG); CLARITY,URINE CLEAR; COLOR,URINE YELLOW; GLUCOSE,URINE NEG (NEG); NITRITE,URINE NEG (NEG); UROBILINOGEN,URINE 0.2 mg/dL (0.2 mg/dL)
[2020-01-21 20:09] LABS: BACTERIA,URINE 0 /HPF (0-FEW); SQUAMOUS EPITHELIAL CELL,UR OCC /LPF; WBC,URINE 0 /HPF (0-4)
[2020-01-21 21:03] LABS: ALBUMIN 3.8 g/dL (3.4-5.0); ALBUMIN/GLOBULIN RATIO 1.1 (1.0-1.7); CALCIUM 9.3 mg/dL (8.5-10.1); CREATININE 0.9 mg/dL (0.6-1.0); GFR 68.3; POTASSIUM 5.1 mmol/L (3.5-5.1); TOTAL BILIRUBIN 1.4 mg/dL (0.2-1.0); TOTAL PROTEIN 7.4 g/dL (6.4-8.2)
[2020-01-21 22:25] LABS: BASO % 1 % (0-3); EOS # 0.2 x10^3/uL (0.0-0.7); EOS % 2 % (0-3); HEMATOCRIT 40.7 % (36.0-47.0); HEMOGLOBIN 13.8 g/dL (12.0-15.5); LYMPH # 2.3 x10^3/uL (1.0-4.8); LYMPH % 28 % (24-48); MEAN CORPUSCULAR HEMOGLOBIN 30 pg (25-35); MEAN CORPUSCULAR HGB CONC 34 g/dL (31-37); MEAN CORPUSCULAR VOLUME 89 fL (79-100); MONO # 0.6 x10^3/uL (0.0-1.1); MONO % 7 % (0-9); NEUT # 5.2 x10^3uL (1.8-7.7); NEUT % 62 % (31-73); PLATELET COUNT 215 x10^3/uL (140-400); RED BLOOD COUNT 4.57 x10^6/uL (3.50-5.40); RED CELL DISTRIBUTION WIDTH 13.7 % (11.5-14.5); WHITE BLOOD COUNT 8.4 x10^3/uL (4.0-11.0)
[2020-01-22] MEDS ORDERED: KETOROLAC 30 MG/ML VIAL. IVP ONE (00:15)
--- NOTE | 2020-01-22 03:12 | RAD ---
EXAM: CT ABDOMEN/PELVIS WITHOUT CONTRAST. HISTORY: Left flank pain. TECHNIQUE: Computed tomography of the abdomen and pelvis was performed without intravenous contrast. One or more of the following individualized dose reduction techniques were utilized for this examination: 1. Automated exposure control. 2. Adjustment of the mA and/or kV according to patient size. 3. Use of iterative reconstruction technique. COMPARISON: 09/11/2019. FINDINGS: Lung windows through the visualized portions of the bases reveal mild atelectasis. Bone windows reveal no suspicious lesions. An intramuscular lipoma in the left gluteus medius measures 7.0 x 2.2 cm. The appendix is surgically absent. The uterine fibroid along the left aspect of the fundus measures 3.0 cm. Another exophytic fibroid more superiorly measures 1.7 cm. The left ovary is lobulated and superiorly placed in the false pelvis. There is no clear interval change. There is no small bowel obstruction. A cyst in the left hepatic lobe measures 11 mm. The gallbladder is surgically absent. The pancreas, spleen and adrenal glands are unremarkable. Note is made of a left retroaortic left renal vein. There are no suspicious renal lesions without contrast. There are no renal or ureteral calculi. IMPRESSION: 1. No renal or ureteral calculi. 2. Lobulation of the left ovary, superiorly placed in the false pelvis. Pelvic sonography could exclude underlying lesions if this is of concern for left symptoms. 3. Uterine fibroids measure up to 3.0 cm. Electronically signed by: Paul Pyle MD (01/22/2020 3:09 AM) [facility]
[2020-01-22] MEDS ORDERED: HYDR-1179 PO (03:51)
[2020-01-22 04:00] VITALS: BP 134/79
--- NOTE | 2020-01-22 14:54 | RAD ---
ACUTE ABDOMEN SERIES History: Pain. Comparison: CT abdomen and pelvis without contrast, later same day. Acute abdominal series September 25, 2018. Findings: Frontal chest and supine and upright views of the abdomen. Cardiomediastinal silhouette is normal. There is no pleural effusion or pneumothorax. The lungs are clear. No pneumoperitoneum is identified. No dilated air-filled loops of bowel are seen. Bowel gas pattern is nonobstructive. Cholecystectomy. There is stool in the right colon. No obvious organomegaly. Bones unremarkable. IMPRESSION: 1. No acute cardiopulmonary process. 2. Nonobstructive bowel gas pattern. Electronically signed by: Emiliano Deluca MD (01/22/2020 2:51 PM) [id number]
== END 2020-01-22 04:12 | disposition home or self-care (01) ==
LOC: ER 18:52
DX: N93.8 Other specified abnormal uterine and vaginal bleeding (principal); N83.202 Unspecified ovarian cyst, left side; E03.9 Hypothyroidism, unspecified; Z87.440 Personal history of urinary (tract) infections; Z86.2 Personal history of diseases of the blood and blood-forming organs and certain disorders involving the immune mechanism; Z88.0 Allergy status to penicillin; Z88.1 Allergy status to other antibiotic agents
CPT/HCPCS: 36415; 74022; 74176; 80053; 81001; 81025; 83690; 85025; 96374; 96375; 99285; J1885; J2405

== ENCOUNTER 2020-09-01 21:03 | Emergency (ER) | payer OTHER ==
[~2020-09-01] VITALS: Ht 157.5 cm; Wt 118.0 kg
[~2020-09-01 21:03] MED LIST changes: +HYDR-1179 PO
[2020-09-01] MEDS ORDERED: ONDANSETRON PF 4 MG/2 ML VIAL. IVP ONE (21:30)
[2020-09-01] MEDS ORDERED: KETOROLAC 30 MG/ML VIAL. IVP ONE (21:30)
[2020-09-01] MEDS ORDERED: IV NORMAL SALINE 1,000ML 1,000 ML IV ONE (21:30)
[2020-09-01] MEDS ORDERED: IOHEXOL 350 MG/ML 100 ML VIAL. IV ONE (21:45)
[2020-09-01 22:03] LABS: BASO % 1 % (0-3); EOS # 0.2 x10^3/uL (0.0-0.7); EOS % 3 % (0-3); HEMATOCRIT 40.8 % (36.0-47.0); HEMOGLOBIN 14.2 g/dL (12.0-15.5); LYMPH # 2.5 x10^3/uL (1.0-4.8); LYMPH % 32 % (24-48); MEAN CORPUSCULAR HEMOGLOBIN 31 pg (25-35); MEAN CORPUSCULAR HGB CONC 35 g/dL (31-37); MEAN CORPUSCULAR VOLUME 88 fL (79-100); MONO # 0.5 x10^3/uL (0.0-1.1); MONO % 7 % (0-9); NEUT # 4.5 x10^3uL (1.8-7.7); NEUT % 58 % (31-73); PLATELET COUNT 227 x10^3/uL (140-400); RED BLOOD COUNT 4.64 x10^6/uL (3.50-5.40); RED CELL DISTRIBUTION WIDTH 13.3 % (11.5-14.5); WHITE BLOOD COUNT 7.8 x10^3/uL (4.0-11.0)
[2020-09-01 22:07] LABS: CLARITY,URINE CLOUDY; COLOR,URINE RED
[2020-09-01 22:08] LABS: BILIRUBIN,URINE NEG (NEG); GLUCOSE,URINE NEG (NEG)
[2020-09-01 22:09] LABS: BACTERIA,URINE 0 /HPF (0-FEW); NITRITE,URINE NEG (NEG); RBC,URINE TNTC /HPF (0-2); SQUAMOUS EPITHELIAL CELL,UR OCC /LPF; UROBILINOGEN,URINE 0.2 mg/dL (0.2 mg/dL); WBC,URINE 0 /HPF (0-4)
[2020-09-01 22:12] LABS: CALCIUM 8.7 mg/dL (8.5-10.1); GFR 60.5; POTASSIUM 4.1 mmol/L (3.5-5.1)
[2020-09-01 22:18] LABS: ALBUMIN 3.8 g/dL (3.4-5.0); ALBUMIN/GLOBULIN RATIO 1.2 (1.0-1.7); TOTAL BILIRUBIN 1.5 mg/dL (0.2-1.0); TOTAL PROTEIN 7.1 g/dL (6.4-8.2)
--- NOTE | 2020-09-01 22:23 | RAD ---
Exam: CT of chest, abdomen and pelvis with contrast INDICATION: Short of breath, chest pain, abdominal pain TECHNIQUE: Sequential axial images through the chest, abdomen and pelvis obtained following the admin istration of 100 mL of Omni 350 IV contrast. Sagittal and coronal reformatted images were reconstruct ed from the axial data and reviewed. 3-D reformatted images were reconstructed from the axial data an d reviewed. Exposure: One or more of the following in the visualized dose reduction techniques were utilized for this examination: 1. Automated exposure control 2. Adjustment of the MA and/or KV according to patient size 3. Use of iterative of reconstructive technique Comparisons: 01/22/2020 FINDINGS: Visualized portions of the thyroid are unremarkable. No enlarged mediastinal lymph nodes. Heart size is normal. No pericardial effusion. Thoracic aorta has a normal course and caliber. Pulmon vanita artery is not enlarged. No pulmonary embolus identified within the main, lobar or segmental pulmo nary arteries. Airways are patent. No consolidation or pneumothorax. No suspicious lung nodules. No pleural effusion or thickening. Mild intrahepatic biliary ductal dilatation. Gallbladder surgically absent. Spleen, pancreas, and adr enals are unremarkable. No perinephric inflammation or hydronephrosis. No renal or ureteral calculi are identified. Bladder is partially distended and not well evaluated. Uterus not enlarged. No abnormal adnexal mass. Large and small bowel are unremarkable. Appendix is nonidentified. No free intra-abdominal air or flu id. No obstruction. Abdominal aorta has a normal course and caliber. Abdominal vasculature is patent. No enlarged intra-abdominal lymph nodes are identified. No suspicious osseous lesions or acute fractures. IMPRESSION: 1. No pulmonary embolus identified within the main, lobar or segmental pulmonary arteries. 2. No acute process identified within the abdomen or pelvis. Electronically signed by: Demetrice Francisco MD (09/01/2020 10:21 PM) [facility]
[2020-09-01 22:30] VITALS: BP 145/83
--- NOTE | 2020-09-01 22:41 | PHYS DOC ---
Past History Past Medical History: Anemia, GERD, Hypothyroid, UTI, Other Additional Past Medical Histor: BULGING DISCS, SCOLIOSIS (NIKKIE HENSON APRN) Past Surgical History: Appendectomy, Cholecystectomy, , Tubal ligation, Other Additional Past Surgical Histo: BILATERAL CARPAL TUNNEL (NIKKIE HENSON APRN) Smoking: Non-smoker Alcohol Use: Rarely Drug Use: None (NIKKIE HENSON APRN) Adult General Chief Complaint Chief Complaint: ABDOMINAL PAIN HPI HPI Patient is a 44-year-old female who presents emergency department with a chief complaint of 3-day history of chest pain, abdominal pain, left flank pain, nausea, shortness of breath. Patient reports her chest pain is a 9 out of 10. Patient states that she has been seen several times by various emergency departments and by her own physician Dr. Powers and has always been told that they cannot find anything wrong with her. Patient states she is getting tired of being told that they cannot find anything wrong. Patient states she is here in the emergency department today to find out why she is having all these pains with shortness of breath. Patient reports she is currently on her menstrual cycle, patient reports that since starting iron pills her stools have softened up and she feels this is odd as she heard that her stools are becoming more hard. Patient denies urinary burning or frequency. Patient denies vaginal discharge or STI concerns. Patient states she takes levothyroxine and pantoprazole with several multivitamins. Patient reports an allergy to penicillin and clindamycin. Patient denies any other physical complaints or physical concerns. (NIKKIE HENSON WOOD PREPARATION SUPERVISOR) Review of Systems Review of Systems 14 body systems of review of systems have been reviewed. See HPI for pertinent positives and negative responses, otherwise all other systems are negative, nonpertinent or noncontributory. (NIKKIE HENSON WOOD PREPARATION SUPERVISOR) Current Medications Current Medications Current Medications Medications (Trade) Dose Ordered Sig/Flip Start Time Stop Time Status Last Admin Dose Admin Iohexol (Omnipaque 350 Mg/ml) 100 ml 1X ONCE 09/01/20 21:45 09/01/20 21:46 DC 09/01/20 21:52 100 ML Ketorolac Tromethamine (Toradol 30mg Vial) 30 mg 1X ONCE 09/01/20 21:30 6/15/21 21:36 DC 09/01/20 22:02 30 MG Ondansetron HCl (Zofran) 4 mg 1X ONCE 09/01/20 21:30 09/01/20 21:36 DC 09/01/20 22:02 4 MG Sodium Chloride 1,000 ml @ 1,000 mls/hr 1X ONCE 09/01/20 21:30 09/01/20 22:29 09/01/20 22:03 1,000 MLS/HR (NIKKIE HENSON APRN) Allergies Allergies Allergies Coded Allergies Type Severity Reaction Last Updated Verified Penicillins Allergy Intermediate 04/01/18 Yes clindamycin Allergy Intermediate 04/01/18 Yes (NIKKIE HENSON APRN) Physical Exam Physical Exam Constitutional: Well developed, well nourished, no acute distress, non-toxic appearance. 44-year-old female no apparent distress. HENT: Normocephalic, atraumatic, bilateral external ears normal, oropharynx moist, no oral exudates, nose normal. No abnormalities of the head or neck, no lymphadenopathy of the head or neck. Eyes: PERRLA, EOMI, conjunctiva normal, no discharge. Neck: Normal range of motion, no tenderness, supple, no stridor. Cardiovascular:Heart rate regular rhythm, no murmur, heart sounds S1-S2 to auscultation. Lungs & Thorax: Bilateral breath sounds clear to auscultation no adventitious lung sounds appreciated, no pain elicited with palpation to the anterior thorax. Abdomen: Bowel sounds normal, soft, no tenderness, no masses, no pulsatile masses. No abnormalities of the abdomen appreciated, no areas of ecchymosis, no skin discoloration. Skin: Warm, dry, no erythema, no rash. Back: No tenderness, CVA tenderness on the right and left, no contusions noted to the back. Extremities: No tenderness, no cyanosis, no clubbing, ROM intact, no edema. Neurologic: Alert and oriented X 3, normal motor function, normal sensory fun ction, no focal deficits noted. Psychologic: Affect normal, judgement normal, mood normal. (NIKKIE HENSON APRN) Current Patient Data Vital Signs Vital Signs Date Time Temp Pulse Resp B/P (MAP) Pulse Ox O2 Delivery O2 Flow Rate FiO2 09/01/20 21:45 98.2 69 16 164/104 (124) 99 Room Air Lab Results Laboratory Tests Test 09/01/20 21:30 09/01/20 21:42 Urine Collection Type Unknown Urine Color Red Urine Clarity Cloudy Urine pH 5.5 Urine Specific [place] 1.025 Urine Protein 30 mg/dl (NEG-TRACE) Urine Glucose (UA) Neg mg/dL (NEG) Urine Ketones (Stick) Neg mg/dL (NEG) Urine Blood Large (NEG) Urine Nitrite Neg (NEG) Urine Bilirubin Neg (NEG) Urine Urobilinogen Dipstick 0.2 mg/dL (0.2 mg/dL) Urine Leukocyte Esterase Neg (NEG) Urine RBC Tntc /HPF (0-2) Urine WBC 0 /HPF (0-4) Urine Squamous Epithelial Cells Occ /LPF Urine Bacteria 0 /HPF (0-FEW) White Blood Count 7.8 x10^3/uL (4.0-11.0) Red Blood Count 4.64 x10^6/uL (3.50-5.40) Hemoglobin 14.2 g/dL (12.0-15.5) Hematocrit 40.8 % (36.0-47.0) Mean Corpuscular Volume 88 fL (79-100) Mean Corpuscular Hemoglobin 31 pg (25-35) Mean Corpuscular Hemoglobin Concent 35 g/dL (31-37) Red Cell Distribution Width 13.3 % (11.5-14.5) Platelet Count 227 x10^3/uL (140-400) Neutrophils (%) (Auto) 58 % (31-73) Lymphocytes (%) (Auto) 32 % (24-48) Monocytes (%) (Auto) 7 % (0-9) Eosinophils (%) (Auto) 3 % (0-3) Basophils (%) (Auto) 1 % (0-3) Neutrophils # (Auto) 4.5 x10^3uL (1.8-7.7) Lymphocytes # (Auto) 2.5 x10^3/uL (1.0-4.8) Monocytes # (Auto) 0.5 x10^3/uL (0.0-1.1) Eosinophils # (Auto) 0.2 x10^3/uL (0.0-0.7) Basophils # (Auto) 0.0 x10^3/uL (0.0-0.2) D-Dimer ([place]) 0.36 mg/L (0.00-0.50) Sodium Level 143 mmol/L (136-145) Potassium Level 4.1 mmol/L (3.5-5.1) Chloride Level 106 mmol/L (98-107) Carbon Dioxide Level 25 mmol/L (21-32) Anion Gap 12 (6-14) Blood Urea Nitrogen 11 mg/dL (7-20) Creatinine 1.0 mg/dL (0.6-1.0) Estimated GFR (Cockcroft-Gault) 60.5 BUN/Creatinine Ratio 11 (6-20) Glucose Level 98 mg/dL (70-99) Calcium Level 8.7 mg/dL (8.5-10.1) Total Bilirubin 1.5 mg/dL (0.2-1.0) H Aspartate Amino Transferase (AST) 28 U/L (15-37) Alanine Aminotransferase (ALT) 49 U/L (14-59) Alkaline Phosphatase 66 U/L (46-116) Troponin I Quantitative < 0.017 ng/mL (0-0.055) Total Protein 7.1 g/dL (6.4-8.2) Albumin 3.8 g/dL (3.4-5.0) Albumin/Globulin Ratio 1.2 (1.0-1.7) Lipase 109 U/L (73-393) (NIKKIE HENSON APRN) EKG EKG EKG performed at 2134 by house respiratory therapy staff shows a normal sinus rhythm without other ectopy with a heart rate of 61 bpm, [place] interval 0.158, QTc interval 0.432, no acute STEMI, no ACS, no acute ischemia appreciated, EKG interpreted by ED attending physician Dr. Cai. (NIKKIE HENSON APRN) Radiology/Procedures Radiology/Procedures PATIENT: SERINA CRAFT ACCOUNT: [id number] : 1975 LOCATION: ER AGE: 44 SEX: F EXAM STATUS: REG ER ORD. PHYSICIAN: NIKKIE HENSON APRN REASON: short of breath, chest pain, abdomen pain Omni 350 100cc PROCEDURE: CT ANGIO CHEST W ABD PEL W/ Exam: CT of chest, abdomen and pelvis with contrast INDICATION: Short of breath, chest pain, abdominal pain TECHNIQUE: Sequential axial images through the chest, abdomen and pelvis obtained following the administration of 100 mL of Omni 350 IV contrast. Sagittal and coronal reformatted images were reconstructed from the axial data and reviewed. 3-D reformatted images were reconstructed from the axial data and reviewed. Exposure: One or more of the following in the visualized dose reduction techniques were utilized for this examination: 1. Automated exposure control 2. Adjustment of the MA and/or KV according to patient size 3. Use of iterative of reconstructive technique Comparisons: 01/22/2020 FINDINGS: Visualized portions of the thyroid are unremarkable. No enlarged mediastinal lymph nodes. Heart size is normal. No pericardial effusion. Thoracic aorta has a normal course and caliber. Pulmonary artery is not enlarged. No pulmonary embolus identified within the main, lobar or segmental pulmonary arteries. Airways are patent. No consolidation or pneumothorax. No suspicious lung nodules. No pleural effusion or thickening. Mild intrahepatic biliary ductal dilatation. Gallbladder surgically absent. Spleen, pancreas, and adrenals are unremarkable. No perinephric inflammation or hydronephrosis. No renal or ureteral calculi are identified. Bladder is partially distended and not well evaluated. Uterus not enlarged. No abnormal adnexal mass. Large and small bowel are unremarkable. Appendix is nonidentified. No free intra-abdominal air or fluid. No obstruction. Abdominal aorta has a normal course and caliber. Abdominal vasculature is patent. No enlarged intra-abdominal lymph nodes are identified. No suspicious osseous lesions or acute fractures. IMPRESSION: 1. No pulmonary embolus identified within the main, lobar or segmental pulmonary arteries. 2. No acute process identified within the abdomen or pelvis. Electronically signed by: Demetrice Francisco MD (09/01/2020 10:21 PM) [facility] (NIKKIE HENSON APRN) Heart Score C/O Chest Pain: Yes HEART Score for Chest Pain: HEART Score for Chest Pain Response (Comments) Value History Slighlty/Non-Suspicious 0 ECG Normal 0 Age < 45 0 Risk Factors 1 or 2 Risk Factors 1 Troponin < Normal Limit 0 Total 1 Risk Factors: Risk Factors: DM, Current or recent (<one month) smoker, HTN, HLP, family history of CAD, obesity. Risk Scores: Risk Factors: DM, Current or recent (<one month) smoker, HTN, HLP, family history of CAD, obesity. (NIKKIE HENSON APRN) Course & Med Decision Making Course & Med Decision Making Pertinent Labs and Imaging studies reviewed. (See chart for details) 44-year-old female, vital signs reviewed, presents emergency department with chief complaint of chest pain, bilateral leg pains, abdominal pain, shortness of breath. Patient's chief complaint does not fit patient's physical appearance. Patient is in no respiratory distress, physical examination was unremarkable. Related to patient's chief complaint will order CT angio chest to rule out pulmonary emboli or other respiratory process, CT abdomen pelvis with IV contrast to rule out acute abdominal process. EKG, troponin I. The patient CT angio chest was negative for acute process, the patient's heart score equals 1, the patient CT abdomen pelvis did not show any concerning findings. The patient's labs were unremarkable. The patient's urine was not infected, did show large amount of blood which is most likely related to patient on her menses. Discussed findings with patient, patient states that her pain is much better since arriving to the ER, discussed strict follow-up with primary care tomorrow. Return to ER precautions and concerns, patient gave verbal understanding discharge home instructions, follow-up with PCP, return to ER, had no further questions or concerns, was discharged home without incident. (NIKKIE HENSON APRN) Dragon Disclaimer Dragon Disclaimer This electronic medical record was generated, in whole or in part, using a voice recognition dictation system. (NIKKIE HENSON APRN) Departure Departure: Impression: Primary Impression: Abdominal pain Additional Impressions: Chest pain of unknown etiology Shortness of breath Flank pain Disposition: 01 HOME / SELF CARE / HOMELESS Condition: GOOD Referrals: YSABEL POWERS MD (PCP) Additional Instructions: A extensive work-up was performed on your cardiac system respiratory system and abdominal system, your lab work did not show any signs of infectious process or other concerns, CT scans did not show any concerning findings in your chest your abdomen or your pelvis. Your urine was not infected. Please follow-up with Dr. Powers for ongoing evaluation of your aches and pains. EMERGENCY DEPARTMENT GENERAL DISCHARGE INSTRUCTIONS Thank you for coming to [facility] (ED) today and trusting us with you care. We trust that you had a positivie experience in our Emergency Department. If you wish to speak to the department management, you may call the director at [phone]. YOUR FOLLOW UP INSTRUCTIONS ARE FOLLOWS: 1. Do you have a private Doctor? If you do not have a private doctor, please ask for a resource list of physicians or clinics that may be able to assist you with follow up care. 2. The Emergency Physician has interpreted your x-rays. The X-Ray specialist will also review them. If there is a change in the findings, you will be notified in 48 hours when at all possible. 3. A lab test or culture has been done, your results will be reviewed and you will be notified if you need a change in treatment. ADDITIONAL INSTRUCTIONS AND INFORMATION: 1. Your care today has been supervised by a physician who is specially trained in emergency care. Many problems require more than one evaluation for a complete diagnosis and treatment. We recommend that you schedule your follow up appointment as recommended to ensure complete treatment of you illness or injury. If you are unable to obtain follow up care and continue to have a problem, or if your condition worsens, we recommend that you return to the ED. 2. We are not able to safely determine your condition over the phone nor are we able to give sound medical advice over the phone. For these safety reasons, if you call for medical advice we will ask you to come to the ED for further evaluation. 3. If you have any questions regarding these discharge instructions please call the ED at [phone]. SAFETY INFORMATION: In the interest of safety, wellness, and injury prevention; we encourage you to wear your sealbelt, if you smoke; quite smoking, and we encourage family to use a protective helmet for bicycling and other sporting events that present an increased risk for head injury. IF YOUR SYMPTOMS WORSEN OR NEW SYMPTOMS DEVELOP, OR YOU HAVE CONCERNS ABOUT YOUR CONDITION; OR IF YOUR CONDITION WORSENS WHILE YOU ARE WAITING FOR YOUR FOLLOW UP APPOINTMENT; EITHER CONTACT YOUR PRIMARY CARE DOCTOR, THE PHYSICIAN WHOSE NAME AND NUMBER YOU WERE GIVEN, OR RETURN TO THE ED IMMEDIATELY. Attending Signature Attending Signature I have reviewed the PA/MACHINE ZIPPER TRIMMER's note and plan of care. I was available for consultation as needed during the patient's visit in the emergency department. I agree with the clinical impression, plan, and disposition. (NIKKIE CAI DO) Problem Qualifiers Primary Impression: Abdominal pain Abdominal location: generalized Qualified Codes: R10.84 - Generalized abdominal pain NIKKIE HENSON APRN Sep 01, 2020 22:41 NIKKIE CAI DO Sep 01, 2020 23:33
--- NOTE | 2020-09-01 23:13 | EKG ---
[address] [address] Test Date: 2020-09-01 Test Time: 21:34:15 Pat Name: SERINA CRAFT Department: Room: Gender: F Certified Surgical First Assistant: : 1975 Requested By: NIKKIE HENSON Order Number: [id number] Reading MD: Measurements Intervals [place] Rate: 61 P: 31 OR: 158 QRS: -7 QRSD: 90 T: 13 QT: 428 QTc: 432 Interpretive Statements SINUS RHYTHM LEFTWARD AXIS OTHERWISE NORMAL ECG RI6.02 No previous ECG available for comparison
== END 2020-09-01 22:45 | disposition home or self-care (01) ==
LOC: ER 21:03
DX: R10.9 Unspecified abdominal pain (principal); R07.9 Chest pain, unspecified; R06.02 Shortness of breath; K21.9 Gastro-esophageal reflux disease without esophagitis; E03.9 Hypothyroidism, unspecified; Z87.440 Personal history of urinary (tract) infections; Z86.2 Personal history of diseases of the blood and blood-forming organs and certain disorders involving the immune mechanism; Z90.89 Acquired absence of other organs; Z90.49 Acquired absence of other specified parts of digestive tract; Z98.890 Other specified postprocedural states; Z98.51 Tubal ligation status; Z88.0 Allergy status to penicillin; Z88.1 Allergy status to other antibiotic agents
CPT/HCPCS: 36415; 71275; 74177; 80053; 81001; 83690; 84484; 85025; 85379; 93005; 96361; 96374; 96375; 99285; J1885; J2405; J7030; Q9967